=== PATIENT | female | born 2000 | race Caucasian/White ===

== ENCOUNTER 2020-04-08 12:03 | Outpatient (CLI) | payer BC, SELFPAY ==
--- NOTE | ~2020-04-08 | XR_ITS ---
EXAMINATION: XR chest 2V 04/08/2020 12:32 INDICATION: Shortness and dizziness PROCEDURE: 2 view chest COMPARISON: 10/21/2010 FINDINGS: The lungs are clear. The cardiomediastinal silhouette is within normal limits. There are no pleural effusions. There is no pneumothorax suspected. IMPRESSION: 1: NO ACUTE CARDIOPULMONARY DISEASE. Reviewed, dictated and finalized at location B. INING ASSOCIATE
[2020-04-08 13:06] LABS: Basophils Absolute Auto 0.1 K/mm3 (0.0-0.1); Basophils Percent Auto 0.8 % (0.2-1.2); Eosinophils Absolute Auto 0.1 K/mm3 (0-0.3); Eosinophils Percent Auto 0.8 % (0-4.4); Hematocrit 41.8 % (37.0-47.0); Hemoglobin 13.5 g/dL (12.0-15.0); Immature Granulocyte Absolute 0.03 K/mm3 (0.00-0.031); Immature Granulocyte Percent A 0.4 % (0-0.5); Lymphocytes Absolute Auto 1.72 K/mm3 (0.9-3.2); Lymphocytes Percent Auto 20.2 % (18.3-44.2); Mean Corpuscular HGB Conc 32.3 g/dl (32-36); Mean Corpuscular Hemoglobin 26.5 pg (26-34); Mean Corpuscular Volume 82.1 fl (80-100); Mean Platelet Volume 9.9 fl (7.4-10.4); Monocytes Percent Auto 11.8 % (2.6-8.5); Neutrophils Absolute Auto 5.6 K/mm3 (1.3-6.7); Platelet Count Result 262 k/mm3 (150-375); Red Blood Count 5.09 M/mm3 (4.2-5.4); Red Cell Distribution Width 17.5 % (11.5-14.5); White Blood Count 8.5 K/mm3 (4.5-10.0)
[2020-04-08 13:15] LABS: D Dimer 0.37 ug/mL (<0.48)
[2020-04-08 13:17] LABS: Alanine Aminotransferase 16 U/L (4-35); Albumin Level 4.5 g/dL (3.7-5.6); Alkaline Phosphatase 107 U/L (45-116); Anion Gap 20 mmol/L (8-16); Aspartate Amino Transferase 18 U/L (14-36); Bilirubin,Total 0.5 mg/dL (0.2-1.3); Blood Urea Nitrogen 11 mg/dL (8-21); CRP 1.1 mg/dL (<1.0); Carbon Dioxide 6 mmol/L (22-30); Chloride 106 mmol/L (98-107); Estimated Glomerular Filt Rate > 60; Glucose 353 mg/dL (65-105); Potassium 3.9 mmol/L (3.4-5.0); Sodium 132 mmol/L (134-143)
[2020-04-08 15:54] LABS: SARS-CoV-2 IgG Non-Reactive (NonReactive)
[2020-04-08 17:08] LABS: Erythrocyte Sedimentation Rate 5 mm/hr (0-20)
[2020-04-12 16:35] LABS: EBV Nuclear Ab Antibody <18.00 U/mL (<18.00); EBV Nuclear Ab Interpretation Negative; EBV Virus Capsid Ag IgG Ab <18.00 U/mL (<18.00); EBV Virus Capsid Ag IgM Ab <36.00 U/mL (<36.00)
== END 2020-04-08 12:04 | disposition home or self-care (01) ==
PROVIDERS: PCP Pediatrics; Visit Provider Pediatrics
DX: R06.02 Shortness of breath (principal); R11.0 Nausea; R53.83 Other fatigue
CPT/HCPCS: 36415; 71046; 80053; 82728; 85025; 85380; 85652; 86140; 86664; 86665; 86769

== ENCOUNTER 2020-04-08 15:15 | Inpatient (IN) | payer BC, SELFPAY ==
[2020-04-08] VITALS (9 sets, daily range): BP systolic 104–134; BP diastolic 65–87; PULSE 81–104; RESP 15–24; TEMP 36.2–37.1; O2SAT 100; BMI 26.5
--- NOTE | 2020-04-08 15:21 | ECG_ITS ---
Measurements Intervals [place] Rate: 93 P: 56 NH: 145 QRS: 99 QRSD: 88 T: 29 QT: 368 QTc: 459 Interpretive Statements SINUS RHYTHM RIGHT AXIS DEVIATION BORDERLINE ST-T WAVE ABNORMALITY- ANT/INF LEADS BASELINE ARTIFACT- I, II, AVR, AVF, V1 BORDERLINE ECG Electronically Signed On 04-08-2020 15:54:58 IT MANAGER by Basil Cummings D.O.
--- NOTE | 2020-04-08 15:25 | ED.GENADULT ---
HPI - General Adult General Chief complaint: Recheck/Abnormal Lab/Rx Stated complaint: high blood sugar Time Seen by Provider: 04/08/20 15:17 Source: RN notes reviewed History of Present Illness HPI narrative: Patient presents emergency department from PCP office for hyperglycemia. Patient states she has not felt well for approximately 1 week she has been being worked up by her PCP including negative outpatient Covid test. She was seen in the office today and had outpatient lab work which showed an elevated blood sugar and the patient to be in DKA the patient does not have a history of diabetes in the past she states she has had some increased thirst states she is also had generalized fatigue as well as a feeling of shortness of breath she denies any fever chills chest pain abdominal pain nausea vomiting or any other symptoms Related Data Allergies Allergy/AdvReac Type Severity Reaction Status Date / Time No Known Allergies Allergy Verified 04/08/20 15:23 Review of Systems Review of Systems: Narrative: Gen.: Denies fevers or chills ENT: Denies congestion Respiratory: For shortness of breath denies cough CV: Denies chest pain or palpitations GI: Denies abdominal pain nausea, emesis or diarrhea denies burning, urgency, frequency or hematuria Musculoskeletal: Denies back pain or muscle pain Neuro: Denies numbness, tingling, weakness or focal weakness Skin: Denies rash Endocrine: See HPI Except as documented, all other systems reviewed and negative [facility] Past Medical History Medical History (Updated 04/08/20 @ 16:48 by Torey Ansari DO) Patient denies significant medical history Social History Social History (Updated 04/08/20 @ 15:26 by Torey Ansari DO) Smoking status: Never smoker Exam Narrative: Exam Narrative: APPEARANCE: No acute distress, nontoxic, resting in bed EYES: EOMI HEENT: Normocephalic, atraumatic, OMM RESPIRATORY: No respiratory distress Clear to auscultation bilaterally with no rhonchi wheezing or rales. CARDIOVASCULAR: Regular rate and rhythm without murmurs rubs or gallops. ABDOMINAL: Soft, nontender, nondistended, no rebound or guarding MUSCULOSKELETAl: Moves all extremities. No clubbing, cyanosis or edema. NEURO: Awake and alert. Following commands, speech normal, no focal deficits SKIN:: Warm, dry. No rashes lesions or abrasions PSYCHIATRIC: Normal affect/mood, Course Course Emergency Course: I reviewed records that were done as an outpatient today including BMP as well as chest x-ray that showed no acute process and negative Covid swab Discussed with REVA Marinelli for Dr. Brooks presentation work-up agrees with admission at this time Discussed with Dr. Drew for ICU agrees with admission to the ICU at this time Discussed with patient and family results of workup and diagnosis. Discussed need for admission. Patient and family understand and agree to current treatment plan Vital Signs Vital signs: Vital Signs Temperature 97.1 F L 04/08/20 15:19 Pulse Rate 104 H 04/08/20 15:19 Respiratory Rate 24 H 04/08/20 15:19 Blood Pressure 134/87 04/08/20 15:19 Pulse Oximetry 100 04/08/20 15:19 Temperature 97.1 F L 04/08/20 15:19 Pulse Rate 95 04/08/20 16:21 Respiratory Rate 21 H 04/08/20 16:21 Blood Pressure 130/86 04/08/20 16:21 Pulse Oximetry 100 04/08/20 16:21 Medical Decision Making Vital Signs Vital Signs: Vital Signs Temperature 97.1 F L 04/08/20 15:19 Pulse Rate 104 H 04/08/20 15:19 Respiratory Rate 24 H 04/08/20 15:19 Blood Pressure 134/87 04/08/20 15:19 Pulse Oximetry 100 04/08/20 15:19 Temperature 97.1 F L 04/08/20 15:19 Pulse Rate 95 04/08/20 16:21 Respiratory Rate 21 H 04/08/20 16:21 Blood Pressure 130/86 04/08/20 16:21 Pulse Oximetry 100 04/08/20 16:21 Lab Data Labs: Lab Results 04/08/20 04/08/20 04/08/20 Range/Units 15:20 15:30 15:30 POC Capillary Glucose 402 H (65-105) mg/dl Phosph
[2020-04-08] MEDS: SODIUM CHLORIDE 0.9% IV 1,000 ML 999 ML IV CONT ×2 (15:28→15:29)
[2020-04-08 15:33] LABS: Glucose Point of Care 402 (65-105)
[2020-04-08 15:39] LABS: Base Excess ABG -21.6 mEq/l (+/-2.0); Fractional Inspired Oxygen 21 %; HCO3 ABG 4.5 mEq/l (22.0-26.0); Oxygen Content ABG 18.2 %vol (16.0-22.0); Oxygen Saturation ABG 97.8 % (95.0-100.0); Oxyhemoglobin 96.9 % THb (90.0-100.0); PO2 ABG 126.4 mmHg (80.0-100.0); PO2 FiO2 Ratio Arterial Blood 6.02 %; Total Hemoglobin 13.2 g/dL (12.0-18.0)
[2020-04-08 15:40] LABS: Device ROOM AIR; Modified Allen's Test Pass; PCO2 ABG 12.8 mmHg (35.0-45.0); Site Drawn RIGHT RADIAL; pH ABG 7.165 (7.350-7.450)
[2020-04-08 15:53] LABS: Magnesium 1.9 mg/dL (1.6-2.3); Phosphorus 1.7 mg/dL (2.5-4.5)
[2020-04-08 15:54] LABS: Alanine Aminotransferase 16 U/L (4-35); Albumin Level 4.6 g/dL (3.7-5.6); Alkaline Phosphatase 107 U/L (45-116); Aspartate Amino Transferase 19 U/L (14-36); Bilirubin,Total 0.5 mg/dL (0.2-1.3)
[2020-04-08 16:22] LABS: Glucose Point of Care 346 (65-105)
[2020-04-08] MEDS: INSULIN HUMAN REGULAR (*BKC) 100 UNITS in SODIUM CHLORIDE 0.9% IV 99 ML 5.72 UNITS IV CONT (16:25)
[2020-04-08 16:34] LABS: Add Urine Microscopic? YES; Appearance Urine Clear (Clear); Bacteria Urine Trace /hpf; Bilirubin Urine Negative (Negative); Blood Urine 3+ (Negative); Color Urine Straw (Yellow); Glucose Urine UA 3+ mg/dL (Negative); Ketones Urine 2+ mg/dL (Negative); Leukocyte Esterase Ur Negative LEU/UL (Negative); Mucus Urine Rare /lpf; Nitrate Urine Negative (Negative); Protein Urine 2+ mg/dL (Negative); Squamous Epithelial Cell Urine Occasional /hpf (Few); Urobilinogen Urine Negative mg/dL (<2.0)
[2020-04-08 16:49] LABS: Beta-Hydroxybutyrate/Acetoacetate 7.95 mmol/L (0.02-0.27)
[2020-04-08 17:39] LABS: Glucose Point of Care 266 (65-105)
[2020-04-08] MEDS: SODIUM CHLORIDE 0.9% IV 1,000 ML 150 ML IV CONT (17:50)
[2020-04-08 17:57] LABS: Hemoglobin A1C 12.4 % (<5.7)
[2020-04-08] MEDS: ONDANSETRON INJ 4 MG/2 ML VIAL IV PUSH (18:07)
--- NOTE | 2020-04-08 18:30 | PM.IMHP ---
H&P: HPI History of Present Illness Date/Time: 04/08/20 18:30 Chief Complaint: Elevated glucose level. Narrative: This is a 19-year-old female who seems to suffer from bulimia who presented to the emergency department earlier today at the direction of her primary care provider for further evaluation of an elevated glucose level found on labs today. She has not been feeling well for about a week with fatigue, lightheadedness, nausea, and shortness of breath and has been in contact with her primary care provider regarding these symptoms. In fact she was tested for COVID on 3 separate occasions, testing negative each time. Within the past several days she was prescribed dexamethasone due to ongoing shortness of breath, presumably under the assumption that she had COVID or and a respiratory infection. Unfortunately she continues to feel worse which prompted further workup to include labs and chest x-ray. On labs today glucose was elevated at 353, also with findings to support diabetic ketoacidosis with a serum carbon dioxide level of 6. She was referred to the emergency department and was found to be in diabetic ketoacidosis, and is being admitted in this setting. At the time my evaluation she has been hydrated and reports feeling somewhat better although she is still mildly short of breath. She has no specific complaints at the time my evaluation and specifically denies fever, chills, sweats, sinus congestion, rhinorrhea, otalgia, odynophagia, cough, chest pain, vomiting, diarrhea, and dysuria. Review of Systems Review of Systems: Narrative: Twelve systems were reviewed with pertinent positives and negatives as per HPI. No syncope. She denies chest pain, pleuritic pain, and palpitations. No cold or flu symptoms. No lower extremity edema. She does endorse being quite thirsty and feels dehydrated. She is on control with her last menstrual cycle being about a month ago. No history of thyroid disease. She has binged and purged for about 4 years, consistent with bulimia, the last time being about 3 weeks ago. She has never told anybody about this and has not sought treatment for that. She denies harmful thoughts. Except as documented, all other systems were reviewed and are negative. [facility] Past Medical History Medical History (Updated 04/08/20 @ 23:23 by Isis Blackwell PA-C) Bulimia Surgical History Surgical History (Updated 04/08/20 @ 23:19 by Isis Blackwell PA-C) History of bilateral breast reduction surgery Status post myringotomy with insertion of tube Family History Family History (Updated 04/08/20 @ 23:20 by Isis Blackwell PA-C) Grandparent Diabetes mellitus Father Asthma Sibling Anxiety Social History Social History (Updated 04/08/20 @ 23:20 by Isis Blackwell PA-C) Social History: The patient lives in [place], [place]. She is studying [employer] at [employer] and works at a local [employer]. Lifelong nonsmoker. No alcohol or illicit substance abuse. Her parents Irish and Torey are her surrogate decision makers and she wishes to be a full code. Spiritual care concerns: No Meds Home Medications and Allergies Home Medications Medication Instructions Recorded Confirmed Type norgestimate-ethinyl estradiol 1 tablet PO DAILY 04/08/20 04/08/20 History [Tri Femynor] Allergies Allergy/AdvReac Type Severity Reaction Status Date / Time No Known Allergies Allergy Verified 04/08/20 15:23 Vital Signs Vital Signs - 24 hr 04/08/20 15:19 04/08/20 16:21 04/08/20 17:40 Temperature 97.1 F L Pulse Rate 104 H 95 93 Respiratory Rate 24 H 21 H 23 H Blood Pressure 134/87 130/86 117/73 Pulse Oximetry 100 100 100 04/08/20 18:10 Temperature Pulse Rate 95 Respiratory Rate 15 Blood Pressure 120/82 Pulse Oximetry 100 Exam Narrative: Exam Narrative: General: Mildly ill-appearing female in the semi-Barron position in bed in no acute distress. Weight: 70.1 kilograms. BMI
[2020-04-08 18:37] LABS: Glucose Point of Care 228 (65-105)
--- NOTE | 2020-04-08 18:45 | ADMGEN ---
This patient, Pooja Long, was admitted to Intensive Care Unit-10. Patient/family oriented to hospital policies and general routines including ID bracelet, bed and alarms, visiting hours, pain management, procedures, bathroom and other care routines, personal items, smoking policy, room service/diet, and visiting hours. Information on how to activate the Rapid Response Team has been discussed. Patient/Family are encouraged to report perceived risks to care and to ask questions if they do not understand what they are told or what they should do.
[2020-04-08 19:46] LABS: Glucose Point of Care 161 (65-105)
[2020-04-08] MEDS: KCL 20 MEQ/D5/0.45% SOD CHL 1,000 ML 150 ML IV CONT (19:52)
--- NOTE | 2020-04-08 20:10 | PC.NURSE ---
Spoke with patient about history of bulemia. Pt states she has not thrown up for the past 3 weeks and a friends parent told her parents about it today. Explained actively purging can greatly complicate her diabetes, and other coping mechanisms are needed. patient states understanding but needs reinforcement.
[2020-04-08 20:28] LABS: Anion Gap 13 mmol/L (8-16); Blood Urea Nitrogen 8 mg/dL (8-21); Calcium 7.8 mg/dL (8.9-10.7); Carbon Dioxide 8 mmol/L (22-30); Chloride 116 mmol/L (98-107); Estimated CRCL calculation 130 ml/min; Estimated Glomerular Filt Rate > 60; Glucose 168 mg/dL (65-105); Potassium 2.8 mmol/L (3.4-5.0); Sodium 137 mmol/L (134-143)
[2020-04-08 20:36] LABS: Glucose Point of Care 179 (65-105)
[2020-04-08] MEDS: POTASSIUM CHLORIDE 20 MEQ TABLET 40 MEQ PO (21:02)
[2020-04-08 21:25] LABS: Glucose Point of Care 183 (65-105)
[2020-04-08 22:41] LABS: Glucose Point of Care 183 (65-105)
[2020-04-09] VITALS (14 sets, daily range): BP systolic 96–110; BP diastolic 60–72; PULSE 75–103; RESP 14–21; TEMP 36.3–37.1; O2SAT 99–100; BMI 26.5
[2020-04-09 00:10] LABS: Anion Gap 13 mmol/L (8-16); Blood Urea Nitrogen 5 mg/dL (8-21); Carbon Dioxide 7 mmol/L (22-30); Chloride 113 mmol/L (98-107); Estimated CRCL calculation 130 ml/min; Estimated Glomerular Filt Rate > 60; Glucose 179 mg/dL (65-105); Potassium 3.1 mmol/L (3.4-5.0); Sodium 133 mmol/L (134-143)
[2020-04-09 00:16] LABS: Phosphorus 1.5 mg/dL (2.5-4.5)
[2020-04-09] MEDS: KCL 20 MEQ/D5/0.45% SOD CHL 1,000 ML 150 ML IV CONT (01:20)
[2020-04-09] MEDS: POTASSIUM CHLORIDE 20 MEQ TABLET 40 MEQ PO (01:40)
[2020-04-09 01:47] LABS: Glucose Point of Care 221 (65-105)
[2020-04-09] MEDS: INSULIN HUMAN REGULAR (*BKC) 100 UNITS in SODIUM CHLORIDE 0.9% IV 99 ML IV CONT (02:39)
[2020-04-09 02:41] LABS: Glucose Point of Care 203 (65-105)
[2020-04-09 03:34] LABS: Anion Gap 8 mmol/L (8-16); Blood Urea Nitrogen 5 mg/dL (8-21); Calcium 7.9 mg/dL (8.9-10.7); Carbon Dioxide 13 mmol/L (22-30); Chloride 113 mmol/L (98-107); Estimated CRCL calculation 111 ml/min; Estimated Glomerular Filt Rate > 60; Glucose 182 mg/dL (65-105); Potassium 2.8 mmol/L (3.4-5.0); Sodium 134 mmol/L (134-143)
[2020-04-09 04:15] LABS: Glucose Point of Care 148 (65-105)
[2020-04-09 04:26] LABS: Glucose Point of Care 146 (65-105)
[2020-04-09 04:29] LABS: Magnesium 1.7 mg/dL (1.6-2.3)
[2020-04-09 05:14] LABS: Glucose Point of Care 154 (65-105)
[2020-04-09 06:36] LABS: Glucose Point of Care 157 (65-105)
[2020-04-09] MEDS: POTASSIUM PHOS,M-BASIC-D-BASIC 20 MMOL in SODIUM CHLORIDE 0.9% IV 250 ML 64 MMOL IVPB (06:39)
[2020-04-09 06:57] LABS: Anion Gap 7 mmol/L (8-16); Blood Urea Nitrogen 6 mg/dL (8-21); Calcium 8.2 mg/dL (8.9-10.7); Carbon Dioxide 14 mmol/L (22-30); Chloride 114 mmol/L (98-107); Estimated CRCL calculation 111 ml/min; Estimated Glomerular Filt Rate > 60; Glucose 140 mg/dL (65-105); Potassium 3.3 mmol/L (3.4-5.0); Sodium 135 mmol/L (134-143)
[2020-04-09 07:35] LABS: Glucose Point of Care 145 (65-105)
--- NOTE | 2020-04-09 08:00 | WPDINTPN ---
Progress Note: A&P Assessment and Plan (1) Diabetic keto-acidosis: Code(s): E11.10 - Type 2 diabetes mellitus with ketoacidosis without coma Status: Acute Assessment and Plan: Patient's anion gap has closed. Although she is still mildly acidotic because of hyperchloremia Patient is now asymptomatic and wants to eat food Will start Lantus, with meal insulin and sliding scale insulin Transition off of insulin infusion Change IV fluids to half-normal saline with potassium Recheck BMP and electrolytes and poor hours (2) Diabetes mellitus, new onset: Code(s): E11.9 - Type 2 diabetes mellitus without complications Status: Acute Assessment and Plan: Consult natural resources extension educator and dietitian HbA1c 12.4 (3) Bulimia: Code(s): F50.2 - Bulimia nervosa Status: Inactive Assessment and Plan: No intervention at this time (4) Electrolyte abnormality: Code(s): E87.8 - Other disorders of electrolyte and fluid balance, not elsewhere classified Status: Acute Assessment and Plan: Patient is getting potassium and fossa placement this time. Repeat levels are ordered for 11:00 a.m. Additional Plan DVT prophylaxis -SCDs while in bed, she is currently on Lovenox which I will DC from tomorrow as I anticipate patient will be active Code Status - Full Code Transfer out of ICU later today Subjective Date/time seen: 04/09/20 0800 19-year-old female with past medical history of bulimia presented to the emergency department yesterday at the direction of her primary care provider for further evaluation of an elevated glucose level found on labs today. She stated that she has been feeling sick for close to 10 days. She had no single specific complaint but multiple symptoms including nausea, occasional vomiting, tiredness, fatigue, lightheadedness, she was drinking lot of water and high urine output, she also was breathing fast and heavy. She was tested for COVID on direction of her primary care physician which was negative. Symptoms did not improve she went back and was tested again and was given 1 dose of dexamethasone close to 1 week after beginning of symptoms. Her test retained negative but her labs work showed elevated blood sugars. She received a call from her physician asking her to come to ER for further evaluation. In ED patient was found to be in DKA. She was given IV fluid bolus and started on maintenance IV fluids and insulin infusion. Electrolytes were replaced This morning patient feels better and states her symptoms have completely resolved. Denies any specific complaint at this time Apart from symptoms mentioned above she did mention that she does suffer from bulimia has not had any episode for last 3 weeks. She has not sought any treatment for this in the past but will seek in the future now since her parents are aware of it. Patient denied fever, sick contact with anyone with COVID-19, chest pain, cough, abdominal pain, diarrhea, headache or constipation. She denied any hematuria hematemesis melena or dysuria All other systems were reviewed and were negative Review of Systems Review of Systems: All systems reviewed & are unremarkable except as noted in HPI and below (HPI) Exam Narrative: Exam Narrative: General: Pt is alert awake and in NAD Lungs/Chest: Trachea central Clear BS B/L, No crackles or wheezing. Cardiac: RRR. Normal S1 S2. No murmurs Circulation: Pedal pulses are intact and symmetrical. Abdomen: Normal bowel sounds.. Soft. NT. ND. Extremities: No clubbing, cyanosis or edema. Warm : Rascon in place Neurologic: Follows commands. Moves all 4 extremities PERRL Skin: No Rash Objective Data Vital Signs Vital Signs: Vital Signs - 24 hr 04/08/20 15:19 04/08/20 16:21 04/08/20 17:40 Temperature 36.2 C L Pulse Rate 104 H 95 93 Respiratory Rate 24 H 21 H 23 H Blood Pressure 134/87 130/86 117/73 Pulse Oximetry 100 100 100 04/08/20 18:10 02
[2020-04-09 08:38] LABS: Glucose Point of Care 144 (65-105)
[2020-04-09] MEDS: INSULIN GLARGINE (*BKC) 100 UNITS/ML 10 UNITS SUB-Q ×2 (09:07→14:19)
[2020-04-09] MEDS: ENOXAPARIN 40 MG/0.4 ML SYRINGE SUB-Q (09:07)
[2020-04-09] MEDS: FAMOTIDINE 20 MG/2 ML VIAL IV PUSH ×2 (09:07→20:50)
[2020-04-09] MEDS: KCL 20 MEQ/0.45% NS 1,000 ML 75 ML IV CONT ×2 (09:25→23:22)
--- NOTE | 2020-04-09 09:38 | PC.NURSE ---
CALLED OPERATIONS EXAMINER MARISSA TO NOTIFY HER OF CONSULT.
[2020-04-09 11:03] LABS: Anion Gap 9 mmol/L (8-16); Blood Urea Nitrogen 6 mg/dL (8-21); Carbon Dioxide 11 mmol/L (22-30); Chloride 110 mmol/L (98-107); Estimated CRCL calculation 158 ml/min; Estimated Glomerular Filt Rate > 60; Glucose 378 mg/dL (65-105); Potassium 3.8 mmol/L (3.4-5.0); Sodium 130 mmol/L (134-143)
[2020-04-09 11:07] LABS: Glucose Point of Care 394 (65-105)
[2020-04-09] MEDS: INSULIN ASPART (*BKC) 100 UNITS/ML SUB-Q ×3 (11:09→18:25)
[2020-04-09 13:24] LABS: Glucose Point of Care 345 (65-105)
--- NOTE | 2020-04-09 13:25 | PM.EVENT ---
Event Note Event Note Event Note: BMP reviewed. Anion gap still closed hyperchloremia as improved. Potassium has normal. Phos is still low. Additional IV K-Phos ordered Blood glucose are high after starting diet. Will give additional 10 units of regular insulin now, increase Lantus to 20 and will give 10 additional now. Change with meal insulin to 5 units and increase sliding scale to high dose. Continue to monitor and adjust accordingly. Patient continues to be asymptomatic at this time
[2020-04-09] MEDS: INSULIN HUMAN REGULAR (*BKC) 100 UNITS/ML 10 UNITS IV PUSH (14:18)
[2020-04-09] MEDS: POTASSIUM PHOS,M-BASIC-D-BASIC 20 MMOL in SODIUM CHLORIDE 0.9% IV 250 ML 62.5 MMOL IVPB (14:25)
--- NOTE | 2020-04-09 14:27 | PCNSR ---
On 04/09/20, the student, Radha Sunshine, provided care and completed [facility] documentation on this patient. I have reviewed the student's documentation and agree with the findings.
[2020-04-09 18:12] LABS: Anion Gap 10 mmol/L (8-16); Blood Urea Nitrogen 4 mg/dL (8-21); Calcium 8.5 mg/dL (8.9-10.7); Carbon Dioxide 11 mmol/L (22-30); Chloride 111 mmol/L (98-107); Estimated CRCL calculation 130 ml/min; Estimated Glomerular Filt Rate > 60; Glucose 215 mg/dL (65-105); Magnesium 1.8 mg/dL (1.6-2.3); Potassium 3.6 mmol/L (3.4-5.0); Sodium 132 mmol/L (134-143)
[2020-04-09 18:25] LABS: Glucose Point of Care 193 (65-105)
[2020-04-09 20:12] LABS: Glucose Point of Care 414 (65-105)
[2020-04-09] MEDS: INSULIN ASPART (*BKC) 100 UNITS/ML 10 UNITS SUB-Q (20:54)
[2020-04-10] VITALS (9 sets, daily range): BP systolic 100–114; BP diastolic 49–75; PULSE 67–93; RESP 12–20; TEMP 36.1–36.7; O2SAT 98–100
[2020-04-10 00:55] LABS: Glucose Point of Care 223 (65-105)
[2020-04-10 04:55] LABS: Hematocrit 33.2 % (37.0-47.0); Hemoglobin 11.3 g/dL (12.0-15.0); Mean Corpuscular Hemoglobin 27.2 pg (26-34); Mean Platelet Volume 9.9 fl (7.4-10.4); Platelet Count Result 168 k/mm3 (150-375); Red Blood Count 4.15 M/mm3 (4.2-5.4); Red Cell Distribution Width 17.7 % (11.5-14.5); White Blood Count 5.3 K/mm3 (4.5-10.0)
[2020-04-10 05:13] LABS: Alanine Aminotransferase 12 U/L (4-35); Albumin Level 2.8 g/dL (3.7-5.6); Alkaline Phosphatase 61 U/L (45-116); Anion Gap 6 mmol/L (8-16); Aspartate Amino Transferase 17 U/L (14-36); Bilirubin,Total 0.2 mg/dL (0.2-1.3); Blood Urea Nitrogen 4 mg/dL (8-21); Calcium 8.2 mg/dL (8.9-10.7); Carbon Dioxide 19 mmol/L (22-30); Chloride 110 mmol/L (98-107); Estimated CRCL calculation 130 ml/min; Estimated Glomerular Filt Rate > 60; Glucose 195 mg/dL (65-105); Magnesium 1.8 mg/dL (1.6-2.3); Phosphorus 2.4 mg/dL (2.5-4.5); Potassium 2.9 mmol/L (3.4-5.0); Sodium 135 mmol/L (134-143)
--- NOTE | 2020-04-10 07:43 | PHAR ---
The patient's home meds of Norgestimate-Ethinyl Estradiol [Tri Femynor] 0.18/0.215/0.25 mg has been verified.
[2020-04-10 08:15] LABS: Glucose Point of Care 236 (65-105)
[2020-04-10] MEDS: POTASSIUM CHLORIDE 20 MEQ PACKET (FOR LIQUID) 40 MEQ PO (08:54)
[2020-04-10] MEDS: INSULIN GLARGINE (*BKC) 100 UNITS/ML 30 UNITS SUB-Q (08:56)
[2020-04-10] MEDS: FAMOTIDINE 20 MG/2 ML VIAL IV PUSH ×2 (08:57→20:29)
--- NOTE | 2020-04-10 11:00 | PM.IMPN ---
Progress Note: A&P Assessment and Plan (1) Diabetic keto-acidosis: Code(s): E11.10 - Type 2 diabetes mellitus with ketoacidosis without coma Status: Acute Assessment and Plan: associated with electrolyte anomaly hypokalemia patient was treated with DKA protocol acidosis resolved IV insulin was discontinued (2) Diabetes mellitus, new onset: Code(s): E11.9 - Type 2 diabetes mellitus without complications Status: Acute Assessment and Plan: discussed with refrigerating machine operator agree with insulin adjustment okay to transfer patient to medical floor (3) Bulimia: Code(s): F50.2 - Bulimia nervosa Status: Inactive Assessment and Plan: follow-up with PCP Subjective Date/time seen: 04/10/20 11:00 Interval history: Patient seen and examined patient presented to the hospital with generalized weakness was referred by her primary care physician was found to have DKA patient does not have history of diabetes but she have family history of diabetes patient was treated with DKA protocol her blood sugar has improved acidosis has resolved patient was started on scheduled insulin Patient denies fever headache chest pain shortness of breath I am seeing the patient for DKA Exam Narrative: Exam Narrative: Alert Chest no wheeze crackles Abdomen nontender nondistended CVS S1 + S2 Lower extremity edema Objective Data Vital Signs Vital Signs: Vital Signs - 24 hr 04/09/20 12:00 04/09/20 14:00 04/09/20 16:00 Temperature 97.9 F 98.7 F Pulse Rate 91 101 H 88 Respiratory Rate 15 15 15 Blood Pressure 110/60 100/70 Pulse Oximetry 100 100 04/09/20 18:00 04/09/20 20:00 04/09/20 21:59 Temperature 97.4 F L Pulse Rate 91 92 76 Respiratory Rate 21 H 15 Blood Pressure 99/68 L Pulse Oximetry 100 100 04/09/20 22:01 04/10/20 00:00 04/10/20 02:00 Temperature 97.7 F Pulse Rate 80 82 Respiratory Rate 16 13 Blood Pressure 110/60 114/70 108/57 L Pulse Oximetry 100 100 04/10/20 04:00 04/10/20 06:00 04/10/20 08:00 Temperature 96.9 F L 97.6 F Pulse Rate 75 71 67 Respiratory Rate 12 14 13 Blood Pressure 100/60 109/59 L 105/65 Pulse Oximetry 100 100 100 04/10/20 10:00 Temperature Pulse Rate 76 Respiratory Rate 12 Blood Pressure 113/75 Pulse Oximetry 100 Intake/Output Intake/Output: Intake & Output 04/07/20 04/08/20 04/09/20 04/10/20 23:59 23:59 23:59 23:59 Intake Total 2213 3570 664 Output Total 2400 1300 Balance 2213 1170 -636 Meds/Results Medications: Active Medications Generic Name Dose Route Start Last Admin Trade Name Freq PRN Reason Stop Dose Admin Dextrose 12.5 gm 04/09/20 08:20 Dextrose 50% 25 Gm/50 Ml Syringe IV PUSH PRN PRN Hypoglycemia Protocol Famotidine 20 mg 04/09/20 09:00 04/10/20 08:57 Famotidine 20 Mg/2 Ml Vial IV PUSH 20 mg Q12HR JOSE Administration Glucagon 1 mg 04/09/20 08:20 Glucagon For Inj 1 Mg Vial IM PRN PRN Hypoglycemia Protocol Glucose 15 gm 04/09/20 08:20 Glucose Oral Gel 15 Gm Of Glucse In 37.5 Gm Tube PO PRN PRN Hypoglycemia Protocol Dextrose 1,000 mls @ 100 mls/hr 04/09/20 08:20 Dextrose 5% 1,000 Ml IVPB PRN PRN Hypoglycemia Protocol Potassium Chloride/Sodium Chloride 1,000 mls @ 75 mls/hr 04/09/20 08:25 04/10/20 09:04 Kcl 20 Meq/0.45% Ns IV CONT 0 mls/hr .[id number] JOSE Infusion Potassium Phosphate 30 mmol/ 260 mls @ 62.5 mls/hr 04/10/20 07:28 04/10/20 08:54 Sodium Chloride IVPB 04/10/20 11:34 62.5 mls/hr ONCE ONE Administration Insulin Aspart 4 - 8 units 04/09/20 16:30 04/09/20 20:41 Insulin Aspart (*Bkc) 100 Units/Ml SUB-Q Not Given ACHS [facility] Protocol Insulin Aspart 8 units 04/10/20 07:30 Insulin Aspart (*Bkc) 100 Units/Ml SUB-Q TIDWM [facility] Insulin Glargine 30 units 04/10/20 09:00 04/10/20 08:56 Insulin Glargine (*Bkc) 100 Units/Ml SUB-Q 30 units
[2020-04-10 11:41] LABS: Glucose Point of Care 202 (65-105)
[2020-04-10] MEDS: INSULIN ASPART (*BKC) 100 UNITS/ML SUB-Q ×3 (11:41→20:32)
[2020-04-10] MEDS: INSULIN ASPART (*BKC) 100 UNITS/ML 8 UNITS SUB-Q ×2 (11:41→15:23)
[2020-04-10 12:14] LABS: Magnesium 1.8 mg/dL (1.6-2.3)
--- NOTE | 2020-04-10 12:53 | PCCDE ---
Diabetes education f/up: received voice mail from RN this am that pt's mom had more questions. Called Pooja's room today and spoke to Pooja and her dad (mom was not there) [phone]. Reviewed increased doses of Lantus and Novolog; pt had pertinent questions about preference of using pens at home. Discussed importance of checking name/type of insulin before taking; using book instructions if needed (pt sts she is comfortable). Reviewed causes, sx and tx of hypoglycemia; pt v/u of Rule of 15 and eating 4 glucose tablets. Pt saw RD yesterday; denies questions about carb counting. Encouraged pt to drink water and answered questions about other sugar free beverages allowed. Pt usually drinks water, diet soda, or hot tea with Stevia. Yesterday mom mentioned they might go to the gym together. Discussed benefits/risks of exercise lowering BG. Advised to take BG meter and glucose tabs to gym. Start slow. Test before exercise to determine need for pre work out snack. pt denied further questions; gave permission to talk to dad. Dad asked about support group. Will add to support group notification here and will email info about [facility] support group in [facility] for women with T1DM. Encouraged pt to call with questions prn. Recommended discharge with insulin pens and BD Angela (4mm) pen needles. One Touch Verio test strips and Delica Plus lancets.
--- NOTE | 2020-04-10 13:26 | WPDINTPN ---
Progress Note: A&P Assessment and Plan (1) Diabetic keto-acidosis: Code(s): E11.10 - Type 2 diabetes mellitus with ketoacidosis without coma Status: Acute Assessment and Plan: Patient's anion gap has closed. She has been transitioned to subcutaneous insulin Patient is now asymptomatic and eating consistent carbohydrate diet Patient was started on Lantus, with meal insulin and sliding scale insulin Her sugars have been uncontrolled despite subcutaneous insulin I have increased her Lantus to 30 units subcu q.day, increased with meal insulin to 8 units and will continue sliding scale Will discontinue IV fluids now (2) Diabetes mellitus, new onset: Code(s): E11.9 - Type 2 diabetes mellitus without complications Status: Acute Assessment and Plan: Consult educator senior clinical and dietitian HbA1c 12.4 (3) Electrolyte abnormality: Code(s): E87.8 - Other disorders of electrolyte and fluid balance, not elsewhere classified Status: Acute Assessment and Plan: Patient had low potassium and phosphorus this morning and is being replaced Will recheck later in the day Additional Plan DVT prophylaxis -SCDs while in bed, she is currently on Lovenox which I will DC from tomorrow as I anticipate patient will be active Code Status - Full Code Transfer out of ICU later today Subjective Date/time seen: 04/10/20 13:26 Patient has no new complaints today as is feeling better. She was transition to subcutaneous insulin yesterday but her sugars remained high her meals requiring at least 2 different doses of IV insulin. Otherwise she is doing better and eating her diet. Slept well with no new complaints All other systems were reviewed and were negative Review of Systems Review of Systems: All systems reviewed & are unremarkable except as noted in HPI and below (HPI) Exam Narrative: Exam Narrative: General: Pt is alert awake and in NAD Lungs/Chest: Trachea central Clear BS B/L, No crackles or wheezing. Cardiac: RRR. Normal S1 S2. No murmurs Circulation: Pedal pulses are intact and symmetrical. Abdomen: Normal bowel sounds.. Soft. NT. ND. Extremities: No clubbing, cyanosis or edema. Warm : Rascon in place Neurologic: Follows commands. Moves all 4 extremities PERRL Skin: No Rash Objective Data Vital Signs Vital Signs: Vital Signs - 24 hr 04/09/20 14:00 04/09/20 16:00 04/09/20 18:00 Temperature 36.6 C 37.1 C Pulse Rate 101 H 88 91 Respiratory Rate 15 15 Blood Pressure 110/60 100/70 Pulse Oximetry 100 100 04/09/20 20:00 04/09/20 21:59 04/09/20 22:01 Temperature 36.3 C L Pulse Rate 92 76 Respiratory Rate 21 H 15 Blood Pressure 99/68 L 110/60 Pulse Oximetry 100 100 04/10/20 00:00 04/10/20 02:00 04/10/20 04:00 Temperature 36.5 C 36.1 C L Pulse Rate 80 82 75 Respiratory Rate 16 13 12 Blood Pressure 114/70 108/57 L 100/60 Pulse Oximetry 100 100 100 04/10/20 06:00 04/10/20 08:00 04/10/20 10:00 Temperature 36.4 C Pulse Rate 71 67 76 Respiratory Rate 14 13 12 Blood Pressure 109/59 L 105/65 113/75 Pulse Oximetry 100 100 100 04/10/20 11:51 Temperature 36.6 C Pulse Rate 88 Respiratory Rate 18 Blood Pressure 104/64 Pulse Oximetry 100 Intake/Output Intake/Output: Intake & Output 04/07/20 04/08/20 04/09/20 04/10/20 23:59 23:59 23:59 23:59 Intake Total 2213 3570 904 Output Total 2400 1300 Balance 2213 1170 -396 Meds/Results Medications: Active Medications Generic Name Dose Route Start Last Admin Trade Name Freq PRN Reason Stop Dose Admin Dextrose 12.5 gm 04/09/20 08:20 Dextrose 50% 25 Gm/50 Ml Syringe IV PUSH PRN PRN Hypoglycemia Protocol Famotidine 20 mg 04/09/20 09:00 04/10/20 08:57 Famotidine 20 Mg/2 Ml Vial IV PUSH 20 mg Q12HR JOSE Administration Glucagon 1 mg 04/09/20 08:20 Glucagon For Inj 1 Mg Vial IM PRN PRN Hypoglycemia Protocol Glucose 15 gm 04/09/20 08:
--- NOTE | 2020-04-10 14:01 | PC.NURSE ---
This patient, Pooja Long, was transferred to [facility] on 04/10/20 at 1401. Personal belongings sent with patient. Report given to DIANE Capone. Appropriate documentation sent with patient.
--- NOTE | 2020-04-10 14:05 | PC.NURSE ---
This patient, Pooja Long, was received from [ ICU] on 04/10/20 at 1405. Patient/family oriented to unit policies and routines
[2020-04-10 14:59] LABS: Glucose Point of Care 256 (65-105)
[2020-04-10 15:31] LABS: Anion Gap 8 mmol/L (8-16); Blood Urea Nitrogen 8 mg/dL (8-21); Calcium 8.5 mg/dL (8.9-10.7); Carbon Dioxide 19 mmol/L (22-30); Chloride 107 mmol/L (98-107); Estimated CRCL calculation 146 ml/min; Estimated Glomerular Filt Rate > 60; Glucose 259 mg/dL (65-105); Phosphorus 2.8 mg/dL (2.5-4.5); Potassium 3.3 mmol/L (3.4-5.0); Sodium 134 mmol/L (134-143)
[2020-04-10 17:43] LABS: Glucose Point of Care 348 (65-105)
[2020-04-10] MEDS: INSULIN ASPART (*BKC) 100 UNITS/ML 18 UNITS SUB-Q (18:14)
[2020-04-10 21:45] LABS: Glucose Point of Care 365 (65-105)
[2020-04-11] VITALS: BP 113/58; PULSE 84; RESP 16; TEMP 36.6; O2SAT 98
[2020-04-11 00:37] LABS: Glucose Point of Care 186 (65-105)
[2020-04-11 05:01] VITALS: BP 107/58; PULSE 75; RESP 18; TEMP 36.1; O2SAT 100
[2020-04-11 05:54] LABS: Hematocrit 32.8 % (37.0-47.0); Hemoglobin 11.1 g/dL (12.0-15.0); Mean Corpuscular HGB Conc 33.8 g/dl (32-36); Mean Corpuscular Hemoglobin 27.3 pg (26-34); Mean Corpuscular Volume 80.6 fl (80-100); Mean Platelet Volume 10.3 fl (7.4-10.4); Platelet Count Result 160 k/mm3 (150-375); Red Blood Count 4.07 M/mm3 (4.2-5.4); Red Cell Distribution Width 17.8 % (11.5-14.5); White Blood Count 5.4 K/mm3 (4.5-10.0)
[2020-04-11 06:15] LABS: Alanine Aminotransferase 14 U/L (4-35); Albumin Level 2.8 g/dL (3.7-5.6); Alkaline Phosphatase 64 U/L (45-116); Anion Gap 5 mmol/L (8-16); Aspartate Amino Transferase 19 U/L (14-36); Bilirubin,Total 0.2 mg/dL (0.2-1.3); Blood Urea Nitrogen 7 mg/dL (8-21); Calcium 8.4 mg/dL (8.9-10.7); Carbon Dioxide 23 mmol/L (22-30); Chloride 108 mmol/L (98-107); Estimated CRCL calculation 186 ml/min; Estimated Glomerular Filt Rate > 60; Glucose 194 mg/dL (65-105); Magnesium 1.8 mg/dL (1.6-2.3); Phosphorus 3.5 mg/dL (2.5-4.5); Potassium 2.9 mmol/L (3.4-5.0); Sodium 136 mmol/L (134-143)
[2020-04-11 08:05] LABS: Glucose Point of Care 206 (65-105)
[2020-04-11 09:04] LABS: Glucose Point of Care 220 (65-105)
[2020-04-11] MEDS: FAMOTIDINE 20 MG/2 ML VIAL IV PUSH ×2 (09:25→20:22)
[2020-04-11] MEDS: POTASSIUM CHLORIDE 20 MEQ PACKET (FOR LIQUID) 40 MEQ PO ×2 (09:25→13:15)
[2020-04-11] MEDS: INSULIN GLARGINE (*BKC) 100 UNITS/ML 30 UNITS SUB-Q (09:33)
[2020-04-11] MEDS: INSULIN ASPART (*BKC) 100 UNITS/ML SUB-Q ×3 (09:33→20:25)
[2020-04-11 09:38] VITALS: BP 116/64; PULSE 101
[2020-04-11] MEDS: SPIRONOLACTONE 50 MG TABLET PO ×2 (10:33→17:32)
[2020-04-11 11:09] LABS: Creatinine Urine 110.8 mg/dL
--- NOTE | 2020-04-11 11:12 | PM.IMPN ---
Progress Note: A&P Assessment and Plan (1) Diabetic keto-acidosis: Code(s): E11.10 - Type 2 diabetes mellitus with ketoacidosis without coma Status: Acute Assessment and Plan: associated with electrolyte anomaly hypokalemia patient was treated with DKA protocol acidosis resolved IV insulin was discontinued (2) Diabetes mellitus, new onset: Code(s): E11.9 - Type 2 diabetes mellitus without complications Status: Acute Assessment and Plan: insulin dose was adjusted Lantus 30 daily aspart 11 t.i.d. (3) Bulimia: Code(s): F50.2 - Bulimia nervosa Status: Inactive Assessment and Plan: follow-up with PCP (4) Hypokalemia: Code(s): E87.6 - Hypokalemia Status: Acute Assessment and Plan: replace potassium started on Aldactone most likely related to total body potassium depletion urine study was sent if no improvement will get nephrology evaluation Additional Plan The patient is being admitted to the hospitalist service and has been placed in the intensive care unit where she has been started on insulin drip, which will be titrated per DKA protocol. Her anion gap on arrival was 20, and chemistries will be monitored closely floor anion gap closure and electrolyte abnormalities. The patient is a new onset diabetic, and will need to see the dietitian and painting trades worker. She will be transitioned to long-acting insulin upon resolution of DKA. Initiate sliding scale insulin, Accu-Cheks, and hypoglycemic protocol. The patient and I also had discussions regarding her eating disorder, and I think speaking with a dietitian will be beneficial for her however she needs to seek further treatment for that as well. Subjective Date/time seen: 04/11/20 11:12 Interval history: Patient seen and examined patient presented to the hospital with generalized weakness was referred by her primary care physician was found to have DKA patient does not have history of diabetes but she have family history of diabetes patient was treated with DKA protocol her blood sugar has improved acidosis has resolved patient was started on scheduled insulin hyperglycemia has significantly improved patient still has hypokalemia Patient denies fever headache chest pain shortness of breath I am seeing the patient for DKA Exam Narrative: Exam Narrative: Alert Chest no wheeze crackles Abdomen nontender nondistended CVS S1 + S2 Lower extremity edema Objective Data Vital Signs Vital Signs: Vital Signs - 24 hr 04/10/20 11:51 04/10/20 16:00 04/10/20 21:55 Temperature 97.8 F 97.4 F L 98.1 F Pulse Rate 88 87 93 Respiratory Rate 18 20 20 Blood Pressure 104/64 105/60 107/49 L Pulse Oximetry 100 98 98 04/11/20 00:00 04/11/20 05:01 Temperature 97.8 F 97 F L Pulse Rate 84 75 Respiratory Rate 16 18 Blood Pressure 113/58 L 107/58 L Pulse Oximetry 98 100 Intake/Output Intake/Output: Intake & Output 04/08/20 04/09/20 04/10/20 04/11/20 23:59 23:59 23:59 23:59 Intake Total 2213 3570 2064 290 Output Total 2400 2150 1000 Balance 2213 9261 -86 -505 Meds/Results Medications: Active Medications Generic Name Dose Route Start Last Admin Trade Name Freq PRN Reason Stop Dose Admin Dextrose 12.5 gm 04/09/20 08:20 Dextrose 50% 25 Gm/50 Ml Syringe IV PUSH PRN PRN Hypoglycemia Protocol Famotidine 20 mg 04/09/20 09:00 04/11/20 09:25 Famotidine 20 Mg/2 Ml Vial IV PUSH 20 mg Q12HR JOSE Administration Glucagon 1 mg 04/09/20 08:20 Glucagon For Inj 1 Mg Vial IM PRN PRN Hypoglycemia Protocol Glucose 15 gm 04/09/20 08:20 Glucose Oral Gel 15 Gm Of Glucse In 37.5 Gm Tube PO PRN PRN Hypoglycemia Protocol Dextrose 1,000 mls @ 100 mls/hr 04/09/20 08:20 Dextrose 5% 1,000 Ml IVPB PRN PRN Hypoglycemia Protocol Insulin Aspart 4 - 8 units 04/09/20 16:30 04/11/20 09:33 Insulin Aspart (*Bkc) 100
[2020-04-11 11:23] LABS: Potassium Urine Random 9.3 meq/L; Sodium Urine Random 103 meq/L
[2020-04-11 12:22] LABS: Protein Urine Trace mg/dL (Negative)
[2020-04-11 12:59] LABS: Glucose Point of Care 448 (65-105)
[2020-04-11] MEDS: INSULIN ASPART (*BKC) 100 UNITS/ML 14 UNITS SUB-Q (13:12)
[2020-04-11] MEDS: INSULIN ASPART (*BKC) 100 UNITS/ML 11 UNITS SUB-Q ×2 (13:13→17:32)
[2020-04-11] MEDS: polyethylene glycoL 3350 17 GM POWD.PACK PO (13:37)
[2020-04-11 14:00] VITALS: BP 104/56; PULSE 95; RESP 15; TEMP 36.6; O2SAT 100
[2020-04-11 16:45] LABS: Potassium 4.4 mmol/L (3.4-5.0)
[2020-04-11 17:31] LABS: Glucose Point of Care 322 (65-105)
[2020-04-11 20:55] LABS: Glucose Point of Care 254 (65-105)
[2020-04-11 22:00] VITALS: BP 118/58; PULSE 88; RESP 21; TEMP 36.8; O2SAT 100
[2020-04-12 05:15] LABS: Hematocrit 32.4 % (37.0-47.0); Hemoglobin 10.8 g/dL (12.0-15.0); Mean Corpuscular HGB Conc 33.3 g/dl (32-36); Mean Corpuscular Hemoglobin 27.3 pg (26-34); Mean Platelet Volume 10.8 fl (7.4-10.4); Platelet Count Result 161 k/mm3 (150-375); Red Blood Count 3.95 M/mm3 (4.2-5.4); Red Cell Distribution Width 18.7 % (11.5-14.5)
[2020-04-12 05:59] LABS: Alanine Aminotransferase 28 U/L (4-35); Albumin Level 2.8 g/dL (3.7-5.6); Alkaline Phosphatase 54 U/L (45-116); Anion Gap 1 mmol/L (8-16); Aspartate Amino Transferase 51 U/L (14-36); Bilirubin,Total 0.1 mg/dL (0.2-1.3); Blood Urea Nitrogen 6 mg/dL (8-21); Calcium 8.2 mg/dL (8.9-10.7); Carbon Dioxide 31 mmol/L (22-30); Chloride 103 mmol/L (98-107); Estimated CRCL calculation 186 ml/min; Estimated Glomerular Filt Rate > 60; Glucose 149 mg/dL (65-105); Magnesium 1.8 mg/dL (1.6-2.3); Phosphorus 4.7 mg/dL (2.5-4.5); Sodium 135 mmol/L (134-143)
[2020-04-12 06:00] VITALS: BP 109/56; PULSE 77; RESP 16; TEMP 36; O2SAT 99
[2020-04-12 06:50] LABS: Glucose Point of Care 109 (65-105)
[2020-04-12 08:43] LABS: Glucose Point of Care 202 (65-105)
[2020-04-12] MEDS: INSULIN ASPART (*BKC) 100 UNITS/ML SUB-Q ×4 (08:47→21:10)
[2020-04-12] MEDS: INSULIN ASPART (*BKC) 100 UNITS/ML 11 UNITS SUB-Q ×2 (08:47→12:22)
[2020-04-12] MEDS: INSULIN GLARGINE (*BKC) 100 UNITS/ML 30 UNITS SUB-Q (08:48)
[2020-04-12] MEDS: FAMOTIDINE 20 MG/2 ML VIAL IV PUSH (08:53)
[2020-04-12 10:07] VITALS: O2SAT 98
--- NOTE | 2020-04-12 11:31 | PM.DS ---
DS: Admitting Diagnosis Admitting Diagnosis Admitting Diagnosis: DKA DS: Discharge Diagnosis Discharge Diagnosis (1) Diabetic keto-acidosis: Code(s): E11.10 - Type 2 diabetes mellitus with ketoacidosis without coma Status: Acute Assessment and Plan: associated with electrolyte anomaly hypokalemia patient was treated with DKA protocol acidosis resolved IV insulin was discontinued blood sugar has improved (2) Diabetes mellitus, new onset: Code(s): E11.9 - Type 2 diabetes mellitus without complications Status: Acute Assessment and Plan: insulin dose was adjusted Lantus 30 daily aspart 11 t.i.d. improved continue current regimen now expected to improve with diet and exercise and current regime (3) Bulimia: Code(s): F50.2 - Bulimia nervosa Status: Inactive Assessment and Plan: follow-up with PCP (4) Hypokalemia: Code(s): E87.6 - Hypokalemia Status: Acute Assessment and Plan: replace potassium improved with 2 doses of Aldactone repeat potassium as outpatient follow-up with the seafood farmer DS: Summary Hospital Course Hospital Course: patient was admitted to the hospital with nausea vomiting was found to have a DKA was treated with insulin drip her condition improved insulin drip was switched to Lantus and aspart with improvement in the condition patient also has hypokalemia potassium replaced was given 2 doses of Aldactone I think hypokalemia multifactorial secondary to DKA dieting significantly improved repeat potassium and 3-5 days follow-up with PCP as outpatient also 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 for evaluation for insulin pump Time Spent with Patient Time attestation: Total time spent providing and/or coordinating discharge services: Exam Narrative: Exam Narrative: Alert Chest no wheeze crackles Abdomen nontender nondistended CVS S1 + S2 Lower extremity edema DS: Data Data Completed and Pending Labs on day of discharge: Labs from last 24 hours 04/12/20 04/12/20 04/12/20 08:24 04:50 04:50 WBC 6.0 RBC 3.95 L Hgb 10.8 L Hct 32.4 L MCV 82.0 MCH 27.3 MCHC 33.3 RDW 18.7 H Plt Count 161 MPV 10.8 H Sodium 135 Potassium 4.0 Chloride 103 Carbon Dioxide 31 H Anion Gap 1 L BUN 6 L Creatinine 0.40 L Estim Creat Clear Calc 186 Estimated GFR > 60 Glucose 149 H POC Capillary Glucose 202 H Calcium 8.2 L Phosphorus 4.7 H Magnesium 1.8 Total Bilirubin 0.1 L AST 51 H ALT 28 Alkaline Phosphatase 54 Total Protein 5.0 L Albumin 2.8 L Urine Protein 04/12/20 04/11/20 04/11/20 00:35 20:20 17:08 WBC RBC Hgb Hct MCV MCH MCHC RDW Plt Count MPV Sodium Potassium Chloride Carbon Dioxide Anion Gap BUN Creatinine Estim Creat Clear Calc Estimated GFR Glucose POC Capillary Glucose 109 254 H 322 H Calcium Phosphorus Magnesium Total Bilirubin AST ALT Alkaline Phosphatase Total Protein Albumin Urine Protein 04/11/20 04/11/20 04/11/20 16:05 12:54 10:43 WBC RBC Hgb Hct MCV MCH MCHC RDW Plt Count MPV Sodium Potassium 4.4 Chloride Carbon Dioxide Anion Gap BUN Creatinine Estim Creat Clear Calc Estimated GFR Glucose POC Capillary Glucose 448 H Calcium Phosphorus Magnesium Total Bilirubin AST ALT Alkaline Phosphatase Total Protein Albumin Urine Protein Trace Discharge Plan Discharge Attending physician on discharge: Jame Cook M.A. Consulting providers: Wyatt Drew Discharging Clinician: Jame Cook M.A. Patient Disposition: Home, Self-Care Activity: as tolerated Diet: diabetic Patient Instructions: Antibiotic Form, Spironolactone (By mouth), Insulin Aspart, Rec
[2020-04-12 12:40] LABS: Glucose Point of Care 341 (65-105)
[2020-04-12 14:00] VITALS: BP 104/49; PULSE 71; RESP 16; TEMP 36.2; O2SAT 100
--- NOTE | 2020-04-12 15:01 | PC.NURSE ---
Observed patient give herself insulin injections with morning and noon doses today. Patient gave injections in her thighs. Uses proper technique and gives injection without difficulty. I did not review drawing up insulin per vial as patient was shown previously but will have an insulin pen at home and will not need to draw up insulin.
[2020-04-12 15:34] LABS: Potassium 4.3 mmol/L (3.4-5.0)
[2020-04-12 17:18] LABS: Glucose Point of Care 256 (65-105)
[2020-04-12] MEDS: INSULIN ASPART (*BKC) 100 UNITS/ML 15 UNITS SUB-Q (17:52)
[2020-04-12 20:00] VITALS: PULSE 71; RESP 16; O2SAT 100
[2020-04-12] MEDS: FAMOTIDINE 20 MG TABLET PO (21:07)
[2020-04-12 21:30] LABS: Glucose Point of Care 222 (65-105)
[2020-04-12 22:00] VITALS: BP 117/58; PULSE 74; RESP 21; TEMP 36.6; O2SAT 100
[2020-04-13 05:41] LABS: Hematocrit 32.3 % (37.0-47.0); Hemoglobin 10.5 g/dL (12.0-15.0); Mean Corpuscular HGB Conc 32.5 g/dl (32-36); Mean Corpuscular Hemoglobin 27.1 pg (26-34); Mean Corpuscular Volume 83.5 fl (80-100); Mean Platelet Volume 10.6 fl (7.4-10.4); Platelet Count Result 176 k/mm3 (150-375); Red Blood Count 3.87 M/mm3 (4.2-5.4); Red Cell Distribution Width 18.6 % (11.5-14.5); White Blood Count 5.5 K/mm3 (4.5-10.0)
[2020-04-13 06:00] VITALS: BP 107/59; PULSE 75; RESP 20; TEMP 36.3; O2SAT 99
[2020-04-13 06:12] LABS: Alanine Aminotransferase 81 U/L (4-35); Albumin Level 2.7 g/dL (3.7-5.6); Alkaline Phosphatase 59 U/L (45-116); Anion Gap -2 mmol/L (8-16); Aspartate Amino Transferase 148 U/L (14-36); Bilirubin,Total < 0.1 mg/dL (0.2-1.3); Blood Urea Nitrogen 6 mg/dL (8-21); Calcium 8.5 mg/dL (8.9-10.7); Carbon Dioxide 35 mmol/L (22-30); Chloride 102 mmol/L (98-107); Estimated CRCL calculation 156 ml/min; Estimated Glomerular Filt Rate > 60; Glucose 138 mg/dL (65-105); Magnesium 1.8 mg/dL (1.6-2.3); Phosphorus 6.1 mg/dL (2.5-4.5); Potassium 3.8 mmol/L (3.4-5.0); Sodium 135 mmol/L (134-143)
[2020-04-13] MEDS: INSULIN ASPART (*BKC) 100 UNITS/ML 15 UNITS SUB-Q ×2 (08:07→11:36)
[2020-04-13] MEDS: INSULIN GLARGINE (*BKC) 100 UNITS/ML 30 UNITS SUB-Q (08:08)
[2020-04-13] MEDS: FAMOTIDINE 20 MG TABLET PO (08:12)
[2020-04-13 08:15] LABS: Glucose Point of Care 162 (65-105)
[2020-04-13] MEDS: INSULIN ASPART (*BKC) 100 UNITS/ML SUB-Q (11:37)
[2020-04-13 11:39] LABS: Glucose Point of Care 226 (65-105)
== END 2020-04-13 12:40 | disposition home or self-care (01) | DRG 638 ==
LOC: ANHED 16:48 → ANHICU 19:13 → ANH2MED 04-10 16:23 → ANHICU 04-16 14:26
PROVIDERS: Internal Medicine; Physician Assistant; Admitting Provider Family Medicine; Emergency Provider Emergency Medicine; PCP Pediatrics; Visit Provider Internal Medicine
DX: E11.10 Type 2 diabetes mellitus with ketoacidosis without coma (principal); F50.2 Bulimia nervosa; E87.6 Hypokalemia; E87.8 Other disorders of electrolyte and fluid balance, not elsewhere classified
CPT/HCPCS: 36415; 36600; 71046; 80048; 80053; 80076; 81001; 81002; 81025; 82010; 82570; 82728; 82805; 82948; 83036; 83735; 84100; 84132; 84133; 84300; 85025; 85027; 85380; 85652; 86140; 86664; 86665; 86769; 93005; 96361; 96365; 99291; A9270; J1650; J1815; J2405; J3480; J7030; J7050

== ENCOUNTER 2020-05-01 14:45 | Outpatient (CLI) | payer BC, SELFPAY | END 2020-05-01 14:46 | disposition home or self-care (01) | LOC: ANHCOVIDVC 14:45 | PROVIDERS: PCP Pediatrics | DX: Z23 Encounter for immunization (principal) | CPT/HCPCS: 0001A; 91300 ==

== ENCOUNTER 2020-05-22 14:44 | Outpatient (CLI) | payer BC, SELFPAY | END 2020-05-22 14:45 | disposition home or self-care (01) | LOC: ANHCOVIDVC 14:44 | PROVIDERS: PCP Pediatrics | DX: Z23 Encounter for immunization (principal) | CPT/HCPCS: 0002A; 91300 ==

== ENCOUNTER 2020-12-21 13:39 | Outpatient (RCR) | payer BC, SELFPAY ==
[2020-12-21 14:25] LABS: Hematocrit 34.7 % (37.0-47.0); Hemoglobin 11.8 g/dL (12.0-15.0)
[2020-12-21 15:17] LABS: HIV 1/2 Ab P24 Ag Result Negative (Negative)
[2020-12-22 10:52] LABS: Rapid Plasma Reagin Non-Reactive (NonReactive)
[2020-12-22] MEDS: RHO(D) IMMUNE GLOBULIN 300 MCG/2 ML SYRINGE IM (13:14)
== END 2021-03-21 23:59 | disposition home or self-care (01) ==
LOC: ANHLAB 13:39
PROVIDERS: Visit Provider Obstetrics & Gynecology
DX: Z11.4 Encounter for screening for human immunodeficiency virus [HIV] (principal); Z29.13 Encounter for prophylactic Rho(D) immune globulin; O36.0190 Maternal care for anti-D [Rh] antibodies, unspecified trimester, not applicable or unspecified; Z3A.00 Weeks of gestation of pregnancy not specified
CPT/HCPCS: 36415; 85014; 85018; 85461; 86592; 86703; 90384; 96372; G0432; J2790

== ENCOUNTER 2021-02-24 10:06 | Inpatient (IN) | payer BC, SELFPAY ==
[2021-02-24] VITALS (54 sets, daily range): BP systolic 88–139; BP diastolic 34–87; PULSE 55–215; RESP 16–20; TEMP 36.3–37.6; O2SAT 97–100; BMI 40.4
--- OUTSIDE RECORDS SUMMARY | 2021-02-24 10:11 | XMS_ITS | Encounter Summary ---
:2000 Author Care Team Providers Name Role Phone Kwesi Kc DO Primary Care Provider [phone] Reason for Visit None recorded. Assessment and Plan 1. Pre-existing type 1 diabetes mellitus in ? non-stress test Discussion Note: None recorded.Patient educational handouts: No information available. Plan of Care Reminders Provider Appointments Surg Post Yolanda T herese Op 03/03/2021 MD Balaji 2:45PM ? Ob Routine Yolanda Th erese 03/08/2021 MD Balaji 2:30PM Lab None ? ? recorded. Referral None ? ? recorded. Procedures None ? ? recorded. Surgeries None ? ? recorded. Imaging Non-stress [place] Test 02/04/2021 Medications Name Start Date ? ? Dexcom G6 Sensor ? Dexcom G6 Sensor device ? CHANGE SENSOR EVERY 10 DAYS Dexcom G6 Transmitter device ? CHANGE TRANSMITTER EVERY 90 DAYS Novolog U-100 Insulin aspart 100 unit/mL subcutaneous solution ? Omnipod Dash Insulin Pod ? Omnipod Dash Insulin Pod subcutaneous cartridge ? CHANGE OMNIPOD POD EVERY 2 DAYS ondansetron HCl 4 mg tablet ?
--- OUTSIDE RECORDS SUMMARY | 2021-02-24 10:11 | XMS_ITS | Encounter Summary ---
:2000 Author Care Team Providers Name Role Phone Kwesi MccallumMitchRadha Primary Care Provider [phone] Reason for Visit None recorded. Assessment and Plan 1. Pre-existing type 1 diabetes mellitus in Pt currently on insulin pump a nd continuous glucose monitoring. She is managed by [facility] physicians. MFM consul t also. ? non-stress test Discussion Note: None recorded.Patient educational handouts: No information available. Plan of Care Reminders Provider Appointments Surg Post Yolanda T herese Op 03/03/2021 MD Balaji 2:45PM ? Ob Routine Yolanda Th erese 03/08/2021 MD Balaji 2:30PM Lab None ? ? recorded. Referral None ? ? recorded. Procedures None ? ? recorded. Surgeries None ? ? recorded. Imaging Non-stress [place] Test 02/01/2021 Medications Name Start Date ? ? Dexcom G6 Sensor ? Dexcom G6 Sensor device ? CHANGE SENSOR EVERY 10 DAYS Dexcom G6 Transmitter device ? CHANGE TRANSMITTER EVERY 90 DAYS Novolog U-100 Insulin aspart 100 unit/mL subcutaneous solution ? Omnipod Dash Insulin Pod ?
--- OUTSIDE RECORDS SUMMARY | 2021-02-24 10:11 | XMS_ITS | Encounter Summary ---
:2000 Author Care Team Providers Name Role Phone Kwesi Kc Primary Care Provider [phone] Reason for Visit OB visit [id number] Assessment and Plan 1. Routine care 2. Pre-existing type 1 diabetes mellitus in Discussion Note: None recorded.Patient educational handouts: No information available. Plan of Care Reminders Provider Appointments Surg Post Op Am y Sharri 03/03/2021 MD Balaji 2:45PM ? Ob Routine Yolanda Th erese 03/08/2021 MD Balaji 2:30PM Lab None ? ? recorded. Referral None ? ? recorded. Procedures None ? ? recorded. Surgeries None ? ? recorded. Imaging None ? ? recorded. Medications Name Start Date ? ? Dexcom G6 Sensor ? Dexcom G6 Sensor device ? CHANGE SENSOR EVERY 10 DAYS Dexcom G6 Transmitter device ? CHANGE TRANSMITTER EVERY 90 DAYS Novolog U-100 Insulin aspart 100 unit/mL subcutaneous solution ? Omnipod Dash Insulin Pod ? Omnipod Dash Insulin Pod subcutaneous cartridge ? CHANGE OMNIPOD POD EVERY 2 DAYS ondansetron HCl 4 mg tablet ? 1 tablet by mouth [place]
--- OUTSIDE RECORDS SUMMARY | 2021-02-24 10:11 | XMS_ITS | Encounter Summary ---
:2000 Author Care Team Providers Name Role Phone Kwesi MccallumMitchRadha Primary Care Provider [phone] Reason for Visit None recorded. Assessment and Plan 1. Pre-existing type 1 diabetes mellitus in Pt currently on insulin pump a nd continuous glucose monitoring. She is managed by [facility] physicians. MFM consul t also. ? [...] ? recorded. Imaging Non-stress [place] Test 02/15/2021 Medications Name Start Date ? ? Dexcom G6 Sensor ? Dexcom G6 Sensor device ? CHANGE SENSOR EVERY 10 DAYS Dexcom G6 Transmitter device ? CHANGE TRANSMITTER EVERY 90 DAYS Novolog U-100 Insulin aspart 100 unit/mL subcutaneous solution ? Omnipod Dash Insulin Pod ?
--- OUTSIDE RECORDS SUMMARY | 2021-02-24 10:11 | XMS_ITS | Encounter Summary ---
:2000 Author Care Team Providers Name Role Phone Kwesi Kc DO Primary Care Provider [phone] Reason for Visit None recorded. Assessment and [...] ? recorded. Imaging Non-stress [place] Test 02/11/2021 Medications Name Start Date ? ? Dexcom [...]
--- OUTSIDE RECORDS SUMMARY | 2021-02-24 10:11 | XMS_ITS | Encounter Summary ---
:2000 Author Care Team Providers Name Role Phone Kwesi Kc Primary Care Provider [phone] Reason for Visit OB visit Assessment and Plan 1. Large for gestation age fetus 2. Type 1 diabetes mellitus 3. Routine care Discussion Note: None recorded.Patient educational handouts: No [...] 4 mg tablet ? 1 tablet by skyla
--- OUTSIDE RECORDS SUMMARY | 2021-02-24 10:11 | XMS_ITS | Encounter Summary ---
:2000 Author Care Team Providers Name Role Phone Kwesi MccallumMitchRadha Primary Care Provider [phone] Reason for Visit None recorded. Assessment and Plan 1. Pre-existing type 1 diabetes mellitus in Pt currently on insulin pump a nd continuous glucose monitoring. She is [place] [facility]. MFM consul t also. ? non-stress [...] ? recorded. Imaging Non-stress [place] Test 02/22/2021 Medications Name Start Date ? ? Dexcom G6 Sensor ? Dexcom G6 Sensor device ? CHANGE SENSOR EVERY 10 DAYS Dexcom G6 Transmitter device ? CHANGE TRANSMITTER EVERY 90 DAYS Novolog U-100 Insulin aspart 100 unit/mL subcutaneous solution ? Omnipod Dash Insulin Pod ?
--- OUTSIDE RECORDS SUMMARY | 2021-02-24 10:11 | XMS_ITS ---
:2000 Author Care Team Providers Name Role Phone ELIF GONZALEZ DO Primary Care Provider [phone] Allergies Code Code System Name Reaction Severity Status Onset NKDA ? Medications Name Status Start Date Stop Date ? ? Baqsimi 3 mg/actuation nasal spray Unknown ? Not available PLEASE SEE ATTACHED FOR DETAILED DIRECTIONS Basaglar KwikPen U-100 Insulin 100 Completed ? 12/04/2020 unit/mL (3 mL) subcutaneous BD Angela 2nd Gen Pen Needle 32 gauge x Unknown ? Not available USE UP TO 6 TIMES DAILY dexamethasone 6 mg tablet Unknown ? Not av ailable TAKE 1 TABLET BY MOUTH ONCE FOR 1 DOSE Dexcom G6 Continuous Improvement Black Belt misc Unknown ? Not avai lable USE DIRECTED FOR CONTINUOUS GLUCOSE MONITORING Dexcom G6 Sensor Active ? Not available Dexcom G6 Sensor device Active ? Not avai lable Dexcom G6 Transmitter device Active ? Not available Glucagon Emergency Kit 1 mg solution for injection Unknown ? Not available INJECT 1ML NEEDED FOR HYPOGYLCEMIA hydrocortisone 2.5 % topical cream Unknown ? Not available APPLY TO AFFECTED AREA 2 TIMES DAILY FOR 10 DAYS Ketostix strips Unknown ? Not available TEST FIRST IN THE MORNING URINE AND DIRECTED nitrofurantoin Completed ? 12/02/2020 monohydrate/macrocrystals 100 mg capsule Novolog Flexpen U-100 Insulin aspart 100 unit/mL (3 mL) subcutan eous Unknown ? Not available INJECT 15 UNITS (0.15 ML) SUBCUTANEOUSLY 3 TIMES A DAY WITH KELECHI LS
--- OUTSIDE RECORDS SUMMARY | 2021-02-24 10:11 | XMS_ITS | Encounter Summary ---
:2000 Author Care Team Providers Name Role Phone Kwesi Kc Primary Care Provider [phone] Reason for Visit OB visit Assessment and Plan 1. Large for gestation age fetus 2. Type 1 diabetes mellitus 3. Breech presentation ? section (SURG) Discussion Note: None recorded.Patient educational handouts: No information available. Plan of Care Reminders Provider Appointments Surg Post Op Am y Sharri 03/03/2021 MD Balaji 2:45PM ? Ob Routine Yolanda Th erese 03/08/2021 MD Balaji 2:30PM Lab None ? ? recorded. Referral None ? ? recorded. Procedures None ? ? recorded. Surgeries [facility] Surgery Section (SURG) 02/24/2021 Balaji Imaging None ? ? recorded. Medications Name Start Date ? ? Dexcom G6 Sensor ? Dexcom G6 Sensor device ? CHANGE SENSOR EVERY 10 DAYS Dexcom G6 Transmitter device ? CHANGE TRANSMITTER EVERY 90 DAYS Novolog U-100 Insulin aspart 100 unit/mL subcutaneous solution ? Omnipod Dash Insulin Pod ? Omnipod Dash Insulin Pod subcutaneous cartridge
--- OUTSIDE RECORDS SUMMARY | 2021-02-24 10:11 | XMS_ITS | Encounter Summary ---
:2000 Author Care Team Providers Name Role Phone Kwesi Kc DO Primary Care Provider [phone] Reason for Visit None recorded. Assessment [...] ? recorded. Imaging Non-stress [place] Test 02/08/2021 Medications Name Start Date ? ? Dexcom [...]
--- OUTSIDE RECORDS SUMMARY | 2021-02-24 10:11 | XMS_ITS | Encounter Summary ---
:2000 Author Care Team Providers Name Role Phone Kwesi Kc Primary Care Provider [phone] Reason for Visit OB visit Assessment and Plan 1. Large for gestation age fetus 2. Type 1 diabetes mellitus Discussion Note: None recorded.Patient educational handouts: No [...] mg tablet ? 1 tablet by mouth every 4-6 hours [facility]
--- OUTSIDE RECORDS SUMMARY | 2021-02-24 10:12 | XMS_ITS | Encounter Summary ---
:2000 Author Care Team Providers Name Role Phone Kwesi Kc Primary Care Provider [phone] Reason for Visit OB visit OB Visit Assessment and Plan 1. Type 1 diabetes mellitus 2. Routine care Discussion Note: None recorded.Patient educational [...]
--- OUTSIDE RECORDS SUMMARY | 2021-02-24 10:12 | XMS_ITS | Encounter Summary ---
:2000 Author Care Team Providers Name Role Phone Kwesi Kc Primary Care Provider [phone] Reason for Visit OB visit Assessment and Plan Assessment Note n. 1. Large for gestation age fetus 2. [...]
--- OUTSIDE RECORDS SUMMARY | 2021-02-24 10:12 | XMS_ITS | Encounter Summary ---
:2000 Author Care Team Providers Name Role Phone Kwesi Kc Primary Care Provider [phone] Reason for Visit NST [id number] EDC 03/17/2021 Assessment and Plan 1. Type 1 diabetes mellitus ? non-stress test Discussion Note: None recorded.Patient educational handouts: No information available. Plan of Care Reminders Provider Appointments Surg Post Yolanda T herese Op 03/03/2021 MD Balaji 2:45PM ? Ob Routine Yolanda Th erese 03/08/2021 MD Balaji 2:30PM Lab None ? ? recorded. Referral None ? ? recorded. Procedures None ? ? recorded. Surgeries None ? ? recorded. Imaging Non-stress [place] Test 01/25/2021 Medications Name Start Date ? ? Dexcom [...] ondansetron HCl 4 mg tablet ? 1 tab
--- OUTSIDE RECORDS SUMMARY | 2021-02-24 10:12 | XMS_ITS | Encounter Summary ---
:2000 Author Care Team Providers Name Role Phone Kwesi Kc DO Primary Care Provider [phone] Reason for Visit None recorded. Assessment and [...] ? recorded. Imaging Non-stress [place] Test 01/28/2021 Medications Name Start Date ? ? Dexcom [...]
--- OUTSIDE RECORDS SUMMARY | 2021-02-24 10:12 | XMS_ITS | Encounter Summary ---
:2000 Author Care Team Providers Name Role Phone Kwesi Kc Primary Care Provider [phone] Reason for Visit OB visit Assessment [...] by mouth every 4-6 hours as needed [facility] [place]
--- OUTSIDE RECORDS SUMMARY | 2021-02-24 10:12 | XMS_ITS | Encounter Summary ---
:2000 Author Care Team Providers Name Role Phone Kwesi Kc Primary Care Provider [phone] Reason for Visit None recorded. Assessment and Plan 1. management consult consult completed. Initiating discussed. Pt instructed on the importance of kangaroo care and being skin to skin with after delivery to initiate early . Pt in structed on proper latch and signs to [facility] for to indicate a poor latch. Pt instructed on importance of colostrum and nutritional needs of in the first couple days of life. Pt instructed on ful l milk coming in and engorgement. Pt ins tructed on schedule and how often and how long to nurse infant. Pt instructed on importance of feeding every 1-3 hours and on demand and impo rtance of waking to nurse a minim um of every 3 hours until is well established and infant is gaining weight appropriately. Pt also instructed on pumping if the does not nurse well. Pt has a history of breast reduct ion surgery. Pt states a clark hole incision was done to spare her nipple and areola and she was informed they did not damage the nerve endings. Pt is unsure if m ilk ducts were cut. Pt informed breast m ilk supply can be an issue after breast reduction surgery. Pt instructed on importance of breast tissue stimulation at least every 2 hours initially and then ever y 3 after breast feeding is well establi shed. Importance of pumping if the infant does not nurse well reinforced. Pt informed latch issues and/or milk supply issues can be addressed after delivery if th ose issues occur. Pt informed even if th e infant nurses well she may need to pump after the nurses for extra stimulation and to help increase milk supply. Pt verbalized understanding of all infor mation discussed and was provided with h andouts to read at home and call if she has any questions. Ana Baxter WEB SITE ADMIN CLC Discussion Note: None recorded.Patient educational handouts: No information available. Plan of Care Reminders Provider
--- OUTSIDE RECORDS SUMMARY | 2021-02-24 10:12 | XMS_ITS | Encounter Summary ---
:2000 Author Care Team Providers Name Role Phone Kwesi Kc Primary Care Provider [phone] Reason for Visit OB visit Assessment and Plan 1. Type 1 diabetes mellitus 2. Bulimia nervosa 3. Routine care Discussion Note: None recorded.Patient [...] ? 1 tablet by mouth every 4-6 h
--- NOTE | 2021-02-24 10:50 | LDADM ---
This patient, Pooja Long, was admitted to Labor/Delivery/Recovery 119 on 02/24/21 at 10:06. Plans for surgery/ and pain management were discussed with patient. Patient/family oriented to hospital policies and general routines including ID bracelet, bed and alarms, visiting hours, pain management, procedures, bathroom and other care routines, personal items, smoking policy, room service/diet and guest tray routines, security routines, and visiting hours. Patient/Family are encouraged to report perceived risks to care and to ask questions if they do not understand what they are told or what they should do.
[2021-02-24] MEDS: LACTATED RINGERS 1,000 ML 125 ML IV CONT (11:03)
[2021-02-24 11:06] LABS: Glucose Point of Care 83 mg/dl (65-105)
[2021-02-24 11:15] LABS: Basophils Percent Auto 0.3 % (0.2-1.2); Eosinophils Absolute Auto 0.1 K/mm3 (0-0.3); Eosinophils Percent Auto 1.1 % (0-4.4); Hematocrit 32.8 % (37.0-47.0); Hemoglobin 11.3 g/dL (12.0-15.0); Immature Granulocyte Absolute 0.07 K/mm3 (0.00-0.031); Immature Granulocyte Percent A 0.7 % (0-0.5); Lymphocytes Absolute Auto 2.13 K/mm3 (0.9-3.2); Lymphocytes Percent Auto 20.6 % (18.3-44.2); Mean Corpuscular HGB Conc 34.5 g/dl (32-36); Mean Corpuscular Hemoglobin 31.1 pg (26-34); Mean Corpuscular Volume 90.4 fl (80-100); Mean Platelet Volume 9.5 fl (7.4-10.4); Monocytes Absolute Auto 1.1 K/mm3 (0.1-0.6); Neutrophils Absolute Auto 6.9 K/mm3 (1.3-6.7); Neutrophils Percent Auto 66.3 % (45.5-73.1); Platelet Count Result 159 k/mm3 (150-375); Red Blood Count 3.63 M/mm3 (4.2-5.4); Red Cell Distribution Width 12.9 % (11.5-14.5); White Blood Count 10.3 K/mm3 (4.5-10.0)
--- NOTE | 2021-02-24 11:45 | WPDANESEPPF ---
Anes - Initial Pre Proc Eval Procedure: Operation Date: 02/24/21 12:00 Proposed Procedures p Primary Section - Yolanda Carpio MD Date/Time: 02/24/21 11:45 Surgeon: Yolanda Carpio MD Pre Op Diagnosis: C/S Patient Data Age: 20 Gender: F Height: 1.63 m Weight: 107 kg Last Vital Signs Pulse 86 02/24/21 10:45 BP 122/61 02/24/21 10:45 Allergies Allergy/AdvReac Type Severity Reaction Status Date / Time No Known Allergies Allergy Verified 02/17/21 14:30 Home Medications Medication Instructions Recorded Confirmed Type PNV cmb#95-ferrous fumarate-FA 1 tablet PO DAILY 02/24/21 02/24/21 History [] aspirin 162 mg PO DAILY 02/24/21 02/24/21 History subcutaneous insulin pump [Omnipod 02/24/21 02/24/21 History Insulin Management] Laboratory Tests 02/24/21 02/24/21 02/24/21 10:55 11:01 11:01 WBC 10.3 K/mm3 H K/mm3 (4.5-10.0) RBC 3.63 M/mm3 L M/mm3 (4.2-5.4) Hgb 11.3 g/dL L g/dL (12.0-15.0) Hct 32.8 % L % (37.0-47.0) MCV 90.4 fl fl (80-100) MCH 31.1 pg pg (26-34) MCHC 34.5 g/dl g/dl (32-36) RDW 12.9 % % (11.5-14.5) Plt Count 159 k/mm3 k/mm3 (150-375) MPV 9.5 fl fl (7.4-10.4) Immature Gran % (Auto) 0.7 % H % (0-0.5) Neut % (Auto) 66.3 % % (45.5-73.1) Lymph % (Auto) 20.6 % % (18.3-44.2) [place] % (Auto) 11.0 % H % (2.6-8.5) Eos % (Auto) 1.1 % % (0-4.4) Baso % (Auto) 0.3 % % (0.2-1.2) Lymph # (Auto) 2.13 K/mm3 K/mm3 (0.9-3.2) [place] # (Auto) 1.1 K/mm3 H K/mm3 (0.1-0.6) Eos # (Auto) 0.1 K/mm3 K/mm3 (0-0.3) Baso # (Auto) 0.0 K/mm3 K/mm3 (0.0-0.1) Abs Immat Gran (auto) 0.07 K/mm3 H K/mm3 (0.00-0.031) Absolute Neuts (auto) 6.9 K/mm3 H K/mm3 (1.3-6.7) Absolute Nucleated RBC 0.0 K/mm3 K/mm3 (0.0-0.012) Nucleated RBC % 0.0 % % (0.0-0.2) POC Capillary Glucose 83 mg/dl mg/dl (65-105) RPR Pending Patient hx anesthesia problems: none Family hx anesthesia problems: none Results Review: All pre-operative results and documents have been reviewed as part of the pre-operative evaluation. [facility] Past Medical History Medical History (Updated 02/24/21 @ 11:45 by Jayme Gomes DO) Bulimia Diabetes mellitus, new onset Surgical History Surgical History (Updated 04/08/20 @ 23:19 by Isis Blackwell PA-C) History of bilateral breast reduction surgery Status post myringotomy with insertion of tube Family History Family History Grandparent Diabetes mellitus Father Asthma Sibling Anxiety Social History Social History (Updated 04/08/20 @ 23:20 by Isis Blackwell PA-C) Social History: The patient lives in [place], [place]. 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 Lifelong nonsmoker. No alcohol or illicit substance abuse. Her parents Irish and Torey are her surrogate decision makers and she wishes to be a full code. Substance use: never Spiritual care concerns: No Anes - Eval Final PreProcedure Day of Procedure 02/24/21 11:45 Patient weight: morbidly obese Heart: regular rate and rhythm Lungs: clear to auscultation and normal air movement Airway: Mallampati scale class II Neurological: alert and oriented Last oral intake: >/= 8 hours ASA classification: III Emergent: no Anesthetic plan: proceed Anesthesia type and monitoring: regional spinal and standard monitoring Results Review: All pre-operative results and documents have been reviewed as part of the pre-operative evaluation. Informed Consent: The patient's anesthetic plan and its attendant risks and benefits were discussed with the patient/family/POA. Questions were solicited and answers provided to the satisfactio
--- NOTE | 2021-02-24 11:52 | PM.IMHP ---
H&P: HPI History of Present Illness Date/Time: 02/24/21 11:52 Chief Complaint: breech, Cs Narrative: Pooja is a 20yo type 1DM, uncontrolled this , MFM managing insulin pump. Baby now breech, and was macrosomic >99% last week. also complicated by Rh neg, got Rhogam, and history of bulemia, in remission. Review of Systems Review of Systems: All systems reviewed & are unremarkable except as noted in HPI and below PMFSH Past Medical History Medical History (Updated 02/24/21 @ 11:54 by Yolanda Carpio MD) Bulimia Diabetes mellitus, new onset Surgical History Surgical History (Updated 04/08/20 @ 23:19 by Isis Blackwell PA-C) History of bilateral breast reduction surgery Status post myringotomy with insertion of tube Family History Family History Grandparent Diabetes mellitus Father Asthma Sibling Anxiety Social History Social History (Updated 04/08/20 @ 23:20 by Isis Blackwell PA-C) Social History: The patient lives in [place], [place]. She is studying [employer] at [employer] and works at a local [employer]. Lifelong nonsmoker. No alcohol or illicit substance abuse. Her parents Irish and Torey are her surrogate decision makers and she wishes to be a full code. Substance use: never Spiritual care concerns: No Meds Home Medications and Allergies Home Medications Medication Instructions Recorded Confirmed Type PNV cmb#95-ferrous fumarate-FA 1 tablet PO DAILY 02/24/21 02/24/21 History [] aspirin 162 mg PO DAILY 02/24/21 02/24/21 History subcutaneous insulin pump [Omnipod 02/24/21 02/24/21 History Insulin Management] Allergies Allergy/AdvReac Type Severity Reaction Status Date / Time No Known Allergies Allergy Verified 02/17/21 14:30 Vital Signs Vital Signs - 24 hr 02/24/21 10:40 02/24/21 10:45 Pulse Rate 97 86 Blood Pressure 125/73 122/61 Exam Const: General: no acute distress Resp: Effort & Inspection: normal respiratory effort Auscultation: clear to auscultation bilaterally Cardio: Rate: regular rate Rhythm: regular rhythm GI: GI Palp: Yes Soft to palpation Extrem: General: normal to inspection H&P: Results Labs Labs: Short CBC 02/24/21 Range/Units 11:01 WBC 10.3 H (4.5-10.0) K/mm3 Hgb 11.3 L (12.0-15.0) g/dL Hct 32.8 L (37.0-47.0) % Plt Count 159 (150-375) k/mm3 Assessment and Plan Assessment and plan (1) Type 1 diabetes mellitus: Code(s): E10.9 - Type 1 diabetes mellitus without complications Status: Acute (2) macrosomia affecting management of mother, antepartum: Code(s): O36.60X0 - Maternal care for excessive growth, unspecified trimester, not applicable or unspecified Status: Acute (3) Breech presentation: Code(s): O32.1XX0 - Maternal care for breech presentation, not applicable or unspecified Status: Acute Additional Plan Plan primary CS- breech and macrosomia DM1 uncontrolled- deliver 37w per MFM. insulin pump settings per MFM Discussed RBA, pt consented, all questions answered. will proceed.
--- NOTE | 2021-02-24 11:55 | WPDHPUPDATE1 ---
History and Physical Update Update Date/Time: 02/24/21 11:55 History and Physical has been reviewed, including an updated exam of the patient. There are NO changes in the patient's condition. Risks, benefits, and alternatives have been discussed and questions answered. Patient agrees to proceed with procedure.
[2021-02-24] MEDS: ceFAZolin 2 GM/D5W 50 ML 2 GM/50 ML BAG IVPB (11:59)
--- NOTE | 2021-02-24 13:01 | SUR.PHASEI ---
Arrived in recovery room with 300 ml remaining in IV of 1000 LR with 40 units Pitocin.
--- NOTE | 2021-02-24 13:01 | PM.OBPRVD ---
OB - Delivery Note Procedure Delivery date: 02/24/21 Procedure: Procedures Operation Date: 02/24/21 12:00 <No data on this case meets the specified criteria> Primary low transverse section Route of delivery: Specimen: Yes (placenta) Quantitative Blood Loss (ml): 885 Anesthesia type: Epidural Disposition: floor Complications: none Narrative: The patient was taken to the OR and had her epidural anesthesia dosed adequately. She was placed in dorsal supine position with left lateral tilt. SCDs and last had been placed. She was prepped and draped in the normal sterile fashion. A Pfannensteil skin incision was made and carried through to the underlying layer of fascia. The fascia was incised in the midline and then extended laterally using Milner scissors. The muscles were in the midline and the peritoneum was entered bluntly. The peritoneal incision was extended inferiorly and superiorly with care to avoid the bladder. The bladder blade was then inserted, the vesicouterine peritoneum was grasped, incised with Metzenbaum scissors, and a bladder flap created. The bladder blade was reinserted. A low transverse uterine incision was made with a scalpel and extended bluntly. AROM was performed and fluid was noted to be clear. The baby was delivered easily in breech presentation with the typical maneuvers. The baby's oropharynx was suctioned. After 30 seconds, the cord was clamped and cut and the infant was handed off. Cord blood was obtained and the placenta was then removed manually. The uterus was exteriorized. A moist lap sponge was used to curette the endometrium. The uterine incision was then closed with one layer of 0-Vicryl in a running, locking fashion. Good hemostasis was noted. The posterior cul de sac was irrigated with normal saline and cleared of all clot and debris. The uterus was returned to the abdomen. Both lateral gutters were then irrigated. The rectus muscles were inspected and found to be hemostatic. The fascia was reapproximated using 0-Vicryl in running fashion. The subcutaneous tissue was irrigated with normal saline and made hemostatic with Bovie electrocautery. The subcutaneous tissue was reapproximated with a layer of running 2-0 plain gut. The skin was then closed with absorbable josr. Steri strips and a bandage were applied. The uterus was evacuated. The patient tolerated the procedure very well. All counts were correct. She was taken to the recovery room in good condition. [place] Baby Date of : 02/24/21 Time of : 12:24 Weeks of gestation at delivery: 37 Infant gender: Male Weight (pounds): 11 Weight (ounces): 2 presentation: breech Placenta delivery description: Manual Removal cord vessel description: 3 Vessels and Delayed Cord Clamping score one minute: 5 score five minutes: 8
[2021-02-24 13:06] LABS: Rapid Plasma Reagin Non-Reactive (NonReactive)
[2021-02-24 13:42] LABS: Glucose Point of Care 75 mg/dl (65-105)
[2021-02-24] MEDS: MORPHINE SULFATE INJ (*CRX) 10 MG/ML AMP 2 MG IV PUSH ×2 (14:35→15:04)
[2021-02-24] MEDS: OXYTOCIN 30 UNITS/NS 500 ML 30 UNITS/500 ML BAG 125 UNITS IV CONT (14:55)
--- NOTE | 2021-02-24 15:55 | PC.NURSE ---
Patient transferred to post room #284 per stretcher from labor and delivery. Support person present. Oriented to unit, room, information board, rooming in, admission packet and security measures. Patient verbalizes understanding.
[2021-02-24 17:28] LABS: Glucose Point of Care 67 mg/dl (65-105)
[2021-02-24] MEDS: KCL 20 MEQ/D5/0.45% SOD CHL 1,000 ML 125 ML IV CONT (19:20)
[2021-02-24 21:16] LABS: Glucose Point of Care 187 mg/dl (65-105)
[2021-02-25] VITALS: BP 125/69; PULSE 80; RESP 18; TEMP 37.2; O2SAT 98
[2021-02-25 04:20] VITALS: BP 108/60; PULSE 92; RESP 18; TEMP 36.9; O2SAT 97
[2021-02-25] MEDS: IBUPROFEN 600 MG TABLET PO ×4 (04:28→23:49)
[2021-02-25 04:56] LABS: Basophils Percent Auto 0.2 % (0.2-1.2); Eosinophils Absolute Auto 0.1 K/mm3 (0-0.3); Eosinophils Percent Auto 0.9 % (0-4.4); Hematocrit 31.9 % (37.0-47.0); Hemoglobin 10.9 g/dL (12.0-15.0); Immature Granulocyte Absolute 0.06 K/mm3 (0.00-0.031); Immature Granulocyte Percent A 0.5 % (0-0.5); Lymphocytes Absolute Auto 1.94 K/mm3 (0.9-3.2); Lymphocytes Percent Auto 15.3 % (18.3-44.2); Mean Corpuscular HGB Conc 34.2 g/dl (32-36); Mean Corpuscular Hemoglobin 30.9 pg (26-34); Mean Corpuscular Volume 90.4 fl (80-100); Mean Platelet Volume 10.1 fl (7.4-10.4); Monocytes Absolute Auto 1.4 K/mm3 (0.1-0.6); Monocytes Percent Auto 10.9 % (2.6-8.5); Neutrophils Absolute Auto 9.2 K/mm3 (1.3-6.7); Neutrophils Percent Auto 72.2 % (45.5-73.1); Platelet Count Result 174 k/mm3 (150-375); Red Blood Count 3.53 M/mm3 (4.2-5.4); White Blood Count 12.7 K/mm3 (4.5-10.0)
[2021-02-25 07:50] VITALS: BP 95/49; PULSE 77; RESP 18; TEMP 37.2; O2SAT 96
[2021-02-25 08:00] VITALS: PULSE 76; RESP 18; O2SAT 98
--- NOTE | 2021-02-25 08:05 | PM.OBPNVD ---
OB - PN: Subj Subjective Date/time seen: 02/25/21 08:05 Patient comments: no complaints, pain well controlled, tolerating diet and flatus present baby status: doing well OB - PN: Obj Data Labs CBC & Chem 7: 02/25/21 04:20 Labs: Laboratory Results - last 24 hr 02/24/21 02/24/21 02/24/21 10:55 11:01 11:01 WBC 10.3 H RBC 3.63 L Hgb 11.3 L Hct 32.8 L MCV 90.4 MCH 31.1 MCHC 34.5 RDW 12.9 Plt Count 159 MPV 9.5 Immature Gran % (Auto) 0.7 H Neut % (Auto) 66.3 Lymph % (Auto) 20.6 [place] % (Auto) 11.0 H Eos % (Auto) 1.1 Baso % (Auto) 0.3 Lymph # (Auto) 2.13 [place] # (Auto) 1.1 H Eos # (Auto) 0.1 Baso # (Auto) 0.0 Abs Immat Gran (auto) 0.07 H Absolute Neuts (auto) 6.9 H Absolute Nucleated RBC 0.0 Nucleated RBC % 0.0 POC Capillary Glucose 83 RPR Non-reactive Blood Type Antibody Screen Antibody Identification Antigen Identification BOOM, IgG Interpret BOOM, Poly Interpret BOOM, Complement Interp Screen Baby's Blood Type Baby's BOOM Doses of RhIg Required 02/24/21 02/24/21 02/24/21 11:01 13:27 17:25 WBC RBC Hgb Hct MCV MCH MCHC RDW Plt Count MPV Immature Gran % (Auto) Neut % (Auto) Lymph % (Auto) [place] % (Auto) Eos % (Auto) Baso % (Auto) Lymph # (Auto) [place] # (Auto) Eos # (Auto) Baso # (Auto) Abs Immat Gran (auto) Absolute Neuts (auto) Absolute Nucleated RBC Nucleated RBC % POC Capillary Glucose 75 67 RPR Blood Type O Negative Antibody Screen Positive Antibody Identification Passive Due to RH Imm Glob Antigen Identification Cancelled BOOM, IgG Interpret Not Performed BOOM, Poly Interpret Negative BOOM, Complement Interp Not Performed Screen Baby's Blood Type Baby's BOOM Doses of RhIg Required 02/24/21 02/25/21 02/25/21 21:14 04:20 04:20 WBC 12.7 H RBC 3.53 L Hgb 10.9 L Hct 31.9 L MCV 90.4 MCH 30.9 MCHC 34.2 RDW 13.0 Plt Count 174 MPV 10.1 Immature Gran % (Auto) 0.5 Neut % (Auto) 72.2 Lymph % (Auto) 15.3 L [place] % (Auto) 10.9 H Eos % (Auto) 0.9 Baso % (Auto) 0.2 Lymph # (Auto) 1.94 [place] # (Auto) 1.4 H Eos # (Auto) 0.1 Baso # (Auto) 0.0 Abs Immat Gran (auto) 0.06 H Absolute Neuts (auto) 9.2 H Absolute Nucleated RBC 0.0 Nucleated RBC % 0.0 POC Capillary Glucose 187 H RPR Blood Type O Negative Antibody Screen Negative Antibody Identification Antigen Identification BOOM, IgG Interpret BOOM, Poly Interpret BOOM, Complement Interp Screen Negative Baby's Blood Type O pos Baby's BOOM Negative Doses of RhIg Required 1 OB - PN A/P Plan day: 1 Plan: routine care Time Spent With Patient Time: Total time spent is greater than 50% in coordination of care (as documented) at patient's floor/unit and/or counseling patient: Time with patient: less than 15 minutes Review of Systems Review of Systems: All systems reviewed & are unremarkable except as noted in HPI and below Exam Narrative: Fundus firm. Vaginal flow controlled. Incision dry and intact. Negative homans. No redness, warmth, or pain of lower ext. Const: General: comfortable Chest: Breast/axilla inspection: normal inspection of the breasts Resp: Effort & Inspection: normal respiratory effort Auscultation: clear to auscultation bilaterally Cardio: Rate: regular rate GI: GI Palp: Yes Soft to palpation Psych: Appearance: grossly normal Affect: normal affect Attitude: cooperative Thought content: Yes Normal thought content present Judgement: Good judgement present (Psych)
[2021-02-25] MEDS: MULTIVIT/MIN/PREN/FOL AC/IRON TABLET 1 TAB PO (08:58)
[2021-02-25 09:03] LABS: Glucose Point of Care 61 mg/dl (65-105)
--- NOTE | 2021-02-25 09:15 | PC.NURSE ---
Consult with pt., mother is pumping due to infant transfer. Mother reports pumping without difficulties or discomfort. Reviewed breast pump care and usage, pumping schedule, nipple care, and collection and storage of breast milk. Encouraged [id number] when infant is able, breast massage and manual expression to stimulate supply. Requested mother call out next feeding to assess flange size. Nipple care reviewed of lanolin before pumping, warm compresses/massage a few minutes before. Discussed colostrum vs milk supply and mother may not see more than a few drops the first few days, milk should transition in by day 3 and she may see more volume pumped per session.
[2021-02-25 10:23] LABS: Glucose Point of Care 114 mg/dl (65-105)
[2021-02-25] MEDS: HYDROcodone/acetaminophen (*CRX) 5-325 MG TABLET 1 TAB PO ×3 (10:33→21:07)
[2021-02-25] MEDS: SIMETHICONE 80 MG TAB.CHEW PO ×4 (10:36→21:07)
[2021-02-25 11:55] VITALS: BP 103/61; PULSE 76; RESP 18; TEMP 37.2; O2SAT 98
[2021-02-25] MEDS: RHO(D) IMMUNE GLOBULIN 300 MCG/2 ML SYRINGE IM (12:37)
--- NOTE | 2021-02-25 13:46 | WPDANLDNPN2 ---
Anes-Prog Note L&D-Neuraxial Date/Time: 02/25/21 13:46 Neuraxial medications: intrathecal PF morphine Opiod-related complaints: none Patient feedback: Patient satisfied with post-operative pain management.
--- NOTE | 2021-02-25 13:47 | WPDANLDPN2 ---
Anes-Prog Note L&D Date/Time: 02/25/21 13:47 Comfortable throughout: section Neuraxial method: spinal Epidural/Spinal procedure site: clean & non-tender Neuro status: Neuro function grossly intact. Cardiovascular status: normal Respiratory status: normal Airway patency: baseline Mental status: baseline Post-Op hydration status: normal Vital Signs: Last Vital Signs Temp 37.2 C 02/25/21 11:55 Pulse 76 02/25/21 11:55 Resp 18 02/25/21 11:55 BP 103/61 02/25/21 11:55 Pulse Ox 98 02/25/21 11:55 Pain score (VAS): 2 I/O: Intake & Output 02/24/21 02/25/21 02/25/21 23:59 07:59 15:59 Intake Total 200 1200 1240 Output Total 200 2250 900 Balance 0 -1050 340 Post-procedural complaints: none Patient feedback: Patient satisfied with anesthetic care.
[2021-02-25 15:17] LABS: Glucose Point of Care 149 mg/dl (65-105)
[2021-02-25 19:51] LABS: Glucose Point of Care 196 mg/dl (65-105)
[2021-02-25 20:00] VITALS: BP 114/70; PULSE 107; RESP 18; TEMP 36.8
[2021-02-25 21:50] LABS: Glucose Point of Care 158 mg/dl (65-105)
[2021-02-26] MEDS: HYDROcodone/acetaminophen (*CRX) 5-325 MG TABLET 1 TAB PO ×2 (01:40→07:45)
--- NOTE | 2021-02-26 04:20 | PM.OBPNVD ---
OB - PN: Subj Subjective Date/time seen: 02/26/21 04:20 Patient comments: no complaints, pain well controlled, tolerating diet and flatus present [place] baby status: doing well OB - PN: Obj Data Labs CBC & Chem 7: 02/25/21 04:20 Labs: Laboratory Results - last 24 hr 02/25/21 02/25/21 02/25/21 04:20 04:20 08:56 WBC 12.7 H RBC 3.53 L Hgb 10.9 L Hct 31.9 L MCV 90.4 MCH 30.9 MCHC 34.2 RDW 13.0 Plt Count 174 MPV 10.1 Immature Gran % (Auto) 0.5 Neut % (Auto) 72.2 Lymph % (Auto) 15.3 L [place] % (Auto) 10.9 H Eos % (Auto) 0.9 Baso % (Auto) 0.2 Lymph # (Auto) 1.94 [place] # (Auto) 1.4 H Eos # (Auto) 0.1 Baso # (Auto) 0.0 Abs Immat Gran (auto) 0.06 H Absolute Neuts (auto) 9.2 H Absolute Nucleated RBC 0.0 Nucleated RBC % 0.0 POC Capillary Glucose 61 L Blood Type O Negative Antibody Screen Negative Screen Negative Baby's Blood Type O pos Baby's BOOM Negative Doses of RhIg Required 1 02/25/21 02/25/21 02/25/21 10:17 15:13 19:44 WBC RBC Hgb Hct MCV MCH MCHC RDW Plt Count MPV Immature Gran % (Auto) Neut % (Auto) Lymph % (Auto) [place] % (Auto) Eos % (Auto) Baso % (Auto) Lymph # (Auto) [place] # (Auto) Eos # (Auto) Baso # (Auto) Abs Immat Gran (auto) Absolute Neuts (auto) Absolute Nucleated RBC Nucleated RBC % POC Capillary Glucose 114 H 149 H 196 H Blood Type Antibody Screen Screen Baby's Blood Type Baby's BOOM Doses of RhIg Required 02/25/21 21:47 WBC RBC Hgb Hct MCV MCH MCHC RDW Plt Count MPV Immature Gran % (Auto) Neut % (Auto) Lymph % (Auto) [place] % (Auto) Eos % (Auto) Baso % (Auto) Lymph # (Auto) [place] # (Auto) Eos # (Auto) Baso # (Auto) Abs Immat Gran (auto) Absolute Neuts (auto) Absolute Nucleated RBC Nucleated RBC % POC Capillary Glucose 158 H Blood Type Antibody Screen Screen Baby's Blood Type Baby's BOOM Doses of RhIg Required OB - PN A/P Plan day: 2 Plan: routine care and discharge home (Follow up in 1 week) Time Spent With Patient Time: Total time spent is greater than 50% in coordination of care (as documented) at patient's floor/unit and/or counseling patient: Time with patient: less than 15 minutes Review of Systems Review of Systems: All systems reviewed & are unremarkable except as noted in HPI and below Exam Narrative: Fundus firm. Vaginal flow controlled. Incision dry and intact. Negative homans. No redness, warmth, or pain of lower ext. Const: General: comfortable Chest: Breast/axilla inspection: normal inspection of the breasts Resp: Effort & Inspection: normal respiratory effort Auscultation: clear to auscultation bilaterally Cardio: Rate: regular rate GI: GI Palp: Yes Soft to palpation Psych: Appearance: grossly normal Affect: normal affect Attitude: cooperative Thought content: Yes Normal thought content present Judgement: Good judgement present (Psych)
[2021-02-26] MEDS: DOCUSATE SODIUM 100 MG CAPSULE PO (07:45)
[2021-02-26] MEDS: IBUPROFEN 600 MG TABLET PO (07:45)
[2021-02-26 08:10] VITALS: BP 127/93; PULSE 90; RESP 16; TEMP 36.6; O2SAT 100
--- NOTE | 2021-02-26 09:45 | PC.NURSE ---
Consult with pt., mother reports she began having discomfort with pumping during the night. Assessed patient for correct flange size, placement and draw. Mother had pump up to highest draw believing it would assist with milk supply. Set draw to 3 for her comfort, reviewing this will not assist increasing supply. Reviewed breast pump care and usage, pumping schedule, nipple care, and collection and storage of breast milk. Encouraged [id number], breast massage and manual expression to stimulate supply. Patient verbalizes and demonstrates understanding of instructions. Discussed colostrum vs milk supply and mother may not see more than a few drops the first few days, milk should transition in by day 3 and she may see more volume pumped per session. Reviewed transition to breast milk, signs of adequate intake, and engorgement/relief. Reviewed regular medications mother is taking. Information provided per Stephenie. Reviewed community resources on the [facility] website and in the Mom/Baby guide. Information on outpatient services provided, reviewed mother may return her if she chooses for assistance if needed. Mother has no further questions at this time.
[2021-02-26 10:22] LABS: Glucose Point of Care 195 mg/dl (65-105)
[2021-02-26 10:22] LABS: Glucose Point of Care 209 mg/dl (65-105)
--- NOTE | 2021-03-05 07:29 | PM.OBDSVD ---
DS: Admitting Diagnosis Discharge Date 02/26/21 Admitting Diagnosis term IUP, LGA, DM1 DS: Discharge Diagnosis Discharge Diagnosis (1) Breech presentation: Code(s): O32.1XX0 - Maternal care for breech presentation, not applicable or unspecified Status: Acute (2) macrosomia affecting management of mother, antepartum: Code(s): O36.60X0 - Maternal care for excessive growth, unspecified trimester, not applicable or unspecified Status: Acute (3) Type 1 diabetes mellitus: Code(s): E10.9 - Type 1 diabetes mellitus without complications Status: Acute (4) delivery delivered: Code(s): O82 - Encounter for delivery without indication Status: Acute OB - DS: Summary Hospital Course Hospital Course: Pt had an uncomplicated primary CS and course. OB Procedures : NST and Ultrasound OB Procedures Intrapartum: OB Procedures: : None Peripartum Data Delivery Method: Section Procedures: Procedures Operation Date: 02/24/21 12:00 Actual Procedure Side Surgeon p Primary Section Not Applicable Yolanda Carpio MD complications: none Status at Discharge Functional status at discharge: independent ambulation Time Spent with Patient Time attestation: Total time spent providing and/or coordinating discharge services: Exam Narrative: NAD abdomen soft, appropriately tender, incision CDI Discharge Plan Discharge Attending physician on discharge: Yolanda Carpio Consulting providers: Ruth Ortez ; Jayme Gomes Discharging Clinician: Ruth Ortez Anticipated Discharge Date/Time: 02/25/21 07:31 Patient Disposition: Home, Self-Care Activity: may drive after 2 weeks and pelvic rest Diet: diabetic Discharge Instructions: Education: Mom and Baby Guide Given to: Mother Follow-Up: Call your delivering provider's office for an appointment to be seen in: 1 Week Mom should come to the [facility] for the follow-up appointment. Appointment Date/Time: March 01, 2021 at 11:00 am What to expect at your follow-up visit: Physical Assessment Call [phone] if you are unable to keep your appointment time. BREAST CARE: * Wear a snug supportive bra. * For engorgement discomfort: Breast Feeding: * Apply warm moist washcloths * Express milk as needed to relieve engorgement * Wear loose clothing Bottle Feeding: * May apply ice packs * For sore nipples: * Identify correct latch-on * Apply warm moist washcloths before and after nursing * Air dry nipples after nursing * May apply Lansinoh cream to nipples ABDOMINAL INCISION: (if applicable) * Allow incision to air dry * Do NOT use lotions for powders on your incision * When showering, allow soap and water to run over the incision, but do not wash incision EPISIOTOMY/PERINEAL CARE: * Until bleeding stops, use your brit bottle after urinating * Change your pad frequently throughout the day * You may take sitz baths several times a day (fill your bathtub with warm water and soak for 20 minutes.) Do NOT bathe in the water * No tub baths until seen by your physician - You may shower ACTIVITY: * Rest as much as possible. * Do not exercise or lift anything heavier than your baby (such as laundry or other children.) * Avoid stairs or driving as much as possible. * Do not put anything into the vagina. No douching, tampons, or sexual activity until seen by physician. NOTIFY PHYSICIAN IF YOU HAVE ANY QUESTIONS OR IF ANY OF THE FOLLOWING SYMPTOMS OCCUR: * If your episiotomy or incision becomes red, swollen, or more painful than what you have experienced in the hospital. * If your vaginal bleeding becomes foul smelling. * If your vaginal bleeding becomes more heavy than a period or if your bleeding changes from p
== END 2021-02-26 11:55 | disposition home or self-care (01) | DRG 788 ==
LOC: ANHLDR 10:09 → ANHOB2 16:15
PROVIDERS: Admitting Provider Obstetrics & Gynecology; PCP Pediatrics; Visit Provider Obstetrics & Gynecology
PROC: 10D00Z1 Extraction of Products of Conception, Low, Open Approach (ICD-10-PCS; CPT 59514; principal; 2021-02-24 12:00)
DX: O24.02 Pre-existing type 1 diabetes mellitus, in childbirth (principal); E10.65 Type 1 diabetes mellitus with hyperglycemia; O32.1XX0 Maternal care for breech presentation, not applicable or unspecified; O36.63X0 Maternal care for excessive fetal growth, third trimester, not applicable or unspecified; O99.824 Streptococcus B carrier state complicating childbirth; O40.3XX0 Polyhydramnios, third trimester, not applicable or unspecified; Z3A.37 37 weeks gestation of pregnancy; Z37.0 Single live birth; Z79.4 Long term (current) use of insulin; Z96.41 Presence of insulin pump (external) (internal)
CPT/HCPCS: 36415; 82948; 85025; 85461; 86592; 86850; 86880; 86900; 86901; 88307; 90384; A9270; J0131; J0690; J2270; J2274; J2405; J2590; J2790; J3480; J7120

== ENCOUNTER 2021-05-06 07:42 | Emergency (ER) | payer BC, SELFPAY ==
[2021-05-06 07:46] VITALS: BP 120/68; PULSE 115; RESP 20; TEMP 36.9; O2SAT 98
[2021-05-06 07:49] VITALS: BP 120/68; PULSE 123; RESP 24; O2SAT 98
[2021-05-06 07:57] LABS: Glucose Point of Care 281 mg/dl (65-105)
--- NOTE | 2021-05-06 08:06 | ED.ABDPAIN ---
HPI - Abdominal Pain General Chief Complaint: Abdominal Pain Stated Complaint: Flank Pain Time Seen by Provider: 05/06/21 07:49 History of Present Illness HPI narrative: Patient is a 20-year-old female who presents ER with left-sided back pain and left upper quadrant abdominal pain. Back pain aching and cramping for the last 3 days. Began radiating to the left upper quadrant today. No urinary frequency urgency or dysuria. No discoloration of urine. Denies fevers or chills or sweats. No nausea or vomiting. Patient denies any GI related symptoms including diarrhea or constipation. She has found no alleviating factors for discomfort. Additionally she is found no aggravating factors. Related Data Home Medications Medication Instructions Recorded Confirmed subcutaneous insulin pump [Omnipod 02/24/21 02/24/21 Insulin Management] hydrocodone-acetaminophen 05/06/21 sertraline mg 05/06/21 Allergies Allergy/AdvReac Type Severity Reaction Status Date / Time No Known Allergies Allergy Verified 05/06/21 07:49 Review of Systems Review of Systems: All systems reviewed & are unremarkable except as noted in HPI and below Constitutional: Constitutional: Denies chills, Denies fever(s) and Denies weakness Cardiovascular: Cardiovascular: Denies chest pain, Denies rapid heart rate and Denies radiating jaw, neck or arm pain Respiratory: Respiratory: Denies cough and Denies dyspnea Gastrointestinal: Gastrointestinal: Reports abdominal pain, Denies constipation, Denies diarrhea, Denies nausea and Denies vomiting Genitourinary: Genitourinary: Denies hematuria, Denies nocturia, Denies dysuria, Reports flank pain and Denies urinary incontinence Musculoskeletal: Musculoskeletal: Reports back pain, Denies arthralgias and Denies joint swelling [facility] Past Medical History Medical History (Updated 05/06/21 @ 09:34 by Cj Sheets MD) Bulimia Diabetes mellitus, new onset Surgical History Surgical History (Updated 02/26/21 @ 04:25 by Ruth Ortez CNM) History of bilateral breast reduction surgery Status post myringotomy with insertion of tube Family History Family History Grandparent Diabetes mellitus Father Asthma Sibling Anxiety Social History Social History (Updated 04/08/20 @ 23:20 by Isis Blackwell PA-C) Social History: The patient lives in [place], [place]. 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 Lifelong nonsmoker. No alcohol or illicit substance abuse. Her parents Irish and Torey are her surrogate decision makers and she wishes to be a full code. Smoking status: Never smoker Second hand tobacco smoke exposure: No Substance use: never Spiritual care concerns: No Exam Narrative: GENERAL: Well-appearing, well-nourished, and in no acute distress. HEAD: Normocephalic, atraumatic. CHEST: Clear to auscultation. No respiratory distress. HEART: Regular rate and rhythm. Normal peripheral pulses. ABDOMEN: Soft, on discomfort in the left upper quadrant without guarding, nondistended. Back: No reproducible midline tenderness of the T/L-spine. There is reproducible paraspinal muscular tenderness at the level of L2 without CVA tenderness. The musculature in this region seems tight but there is no knotted spasm. EXTREMITIES: Normal range of motion. No edema. SKIN: Warm, dry, no rash. NEURO: Alert and oriented x3. PSYCH: Normal mood and affect. Course Course Emergency Course: Patient resting comfortably. Informed of results. Will give IV ceftriaxone for pyelonephritis. Discussed treatment plan with patient including discharge with supportive medications. Patient verbalized understanding and feels comfortable with plan. Vital Signs Vital signs: Vital Signs Temperature 98.5 F 05/06/21 07:46 Pulse Rate 115 H 05/06/21 07:46 Respiratory Rate 20 05/06/21 07:46 Blood Pressure 120/68 05/06/21 0
[2021-05-06] MEDS: KETOROLAC 30 MG/ML VIAL (*BKC) IV PUSH (08:07)
[2021-05-06 08:08] LABS: Basophils Percent Auto 0.2 % (0.2-1.2); Eosinophils Percent Auto 0.1 % (0-4.4); Hematocrit 39.7 % (37.0-47.0); Hemoglobin 13.2 g/dL (12.0-15.0); Immature Granulocyte Absolute 0.05 K/mm3 (0.00-0.031); Immature Granulocyte Percent A 0.3 % (0-0.5); Lymphocytes Absolute Auto 1.36 K/mm3 (0.9-3.2); Lymphocytes Percent Auto 9.2 % (18.3-44.2); Mean Corpuscular HGB Conc 33.2 g/dl (32-36); Mean Corpuscular Hemoglobin 30.1 pg (26-34); Mean Corpuscular Volume 90.6 fl (80-100); Mean Platelet Volume 10.3 fl (7.4-10.4); Monocytes Absolute Auto 1.8 K/mm3 (0.1-0.6); Monocytes Percent Auto 12.5 % (2.6-8.5); Neutrophils Absolute Auto 11.4 K/mm3 (1.3-6.7); Neutrophils Percent Auto 77.7 % (45.5-73.1); Platelet Count Result 257 k/mm3 (150-375); Red Blood Count 4.38 M/mm3 (4.2-5.4); Red Cell Distribution Width 12.9 % (11.5-14.5); White Blood Count 14.7 K/mm3 (4.5-10.0)
[2021-05-06] MEDS: SODIUM CHLORIDE 0.9% IV 1,000 ML 999 ML IV CONT (08:08)
[2021-05-06 08:23] LABS: Lipase 40 U/L (23-300)
[2021-05-06 08:59] LABS: Add Urine Microscopic? YES; Appearance Urine Cloudy (Clear); Bacteria Urine 4+ /hpf; Bilirubin Urine Negative (Negative); Blood Urine 3+ (Negative); Color Urine Yellow (Yellow); Glucose Urine UA 1+ mg/dL (Negative); Ketones Urine Trace mg/dL (Negative); Leukocyte Esterase Ur 3+ LEU/UL (Negative); Mucus Urine Rare /lpf; Nitrate Urine Negative (Negative); Protein Urine 1+ mg/dL (Negative); Specific Grav Ur 1.018 (1.001-1.035); Squamous Epithelial Cell Urine Few /hpf (Few); Urobilinogen Urine Negative mg/dL (<2.0); WBC Urine >75 /hpf
[2021-05-06 09:10] LABS: Alanine Aminotransferase 13 U/L (4-35); Albumin Level 3.8 g/dL (3.5-5.1); Alkaline Phosphatase 100 U/L (38-126); Anion Gap 7 mmol/L (8-16); Aspartate Amino Transferase 18 U/L (14-36); Bilirubin,Total 0.4 mg/dL (0.2-1.3); Blood Urea Nitrogen 11 mg/dL (7-17); Calcium 7.9 mg/dL (8.4-10.2); Carbon Dioxide 26 mmol/L (22-30); Chloride 99 mmol/L (98-107); Estimated CRCL calculation 124 ml/min; Estimated Glomerular Filt Rate > 60; Glucose 257 mg/dL (65-110); Sodium 132 mmol/L (137-145)
[2021-05-06 09:13] VITALS: BP 115/61; PULSE 90; RESP 20; O2SAT 98
[2021-05-06 09:15] VITALS: O2SAT 97
[2021-05-06 09:41] VITALS: BP 113/50; PULSE 85; RESP 14; O2SAT 98
== END 2021-05-06 09:58 | disposition home or self-care (01) ==
PROVIDERS: General Practice; Emergency Provider Emergency Medicine; PCP Pediatrics
DX: N12 Tubulo-interstitial nephritis, not specified as acute or chronic (principal); Z79.4 Long term (current) use of insulin; E11.9 Type 2 diabetes mellitus without complications
CPT/HCPCS: 36415; 80053; 81001; 81025; 82948; 83690; 85025; 87077; 87086; 87186; 96361; 96374; 96375; 99284; J0696; J1885; J7030

== ENCOUNTER 2021-06-27 12:03 | Emergency (ER) | payer BC, SELFPAY ==
--- NOTE | 2021-06-27 12:17 | ED.GENADULT ---
HPI - General Adult General Chief complaint: Urogenital-Female Stated complaint: lt flank pain Time Seen by Provider: 06/27/21 12:18 Source: patient Mode of arrival: ambulatory Limitations: no limitations History of Present Illness HPI narrative: 20-year-old female patient presents to the [facility] with complaints of left flank pain for the past 2 days. Patient does have history of type 1 diabetes and states that she does get kidney infections often. Patient states her last kidney infection was about 2 months ago. Denies any pain with urination but states she has noticed a foul odor, increase in frequency. Denies Related Data Home Medications Medication Instructions Recorded Confirmed subcutaneous insulin pump [Omnipod 02/24/21 02/24/21 Insulin Management] sertraline 50 mg PO DAILY 05/06/21 blood-glucose sensor [Dexcom G6 06/27/21 06/27/21 Sensor] blood-glucose transmitter [Dexcom 06/27/21 06/27/21 G6 Transmitter] insulin aspart U-100 [Novolog 06/27/21 U-100 Insulin aspart] norgestimate-ethinyl estradiol 1 tablet PO DAILY 06/27/21 06/27/21 [Tri Femynor] Allergies Allergy/AdvReac Type Severity Reaction Status Date / Time No Known Allergies Allergy Verified 06/27/21 12:41 Review of Systems Review of Systems: CONSTITUTIONAL: Denies fever, chills, or sweats. EYES: Denies visual changes, redness, or discharge. ENT: Denies rhinorrhea, congestion, sore throat, or otalgia. CARDIOVASCULAR: Denies chest pain, palpitations, or edema. RESPIRATORY: Denies cough or dyspnea. GASTROINTESTINAL: Denies abdominal pain, nausea, vomiting, or diarrhea. GENITOURINARY: Positive dysuria or hematuria. SKIN: Denies rash or itching. MUSCULOSKELETAL: Positive left flank back pain, denies joint pain, or myalgia. NEUROLOGIC: Denies headache, numbness, or weakness. PSYCHIATRIC: Denies anxiety or depression. [facility] Past Medical History Medical History Bulimia Diabetes mellitus, new onset Surgical History Surgical History History of bilateral breast reduction surgery Status post myringotomy with insertion of tube Family History Family History Grandparent Diabetes mellitus Father Asthma Sibling Anxiety Social History Social History Social History: The patient lives in [place], [place]. 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 No alcohol or illicit substance abuse. Her parents Irish and Torey are her surrogate decision makers and she wishes to be a full code. Smoking status: Never smoker Second hand tobacco smoke exposure: No Substance use: never Spiritual care concerns: No Exam Narrative: GENERAL: Well-appearing, well-nourished, and in no acute distress. HEAD: Normocephalic, atraumatic. EYES: PERRLA and EOMI. ENT: Nares clear, no rhinorrhea or epistaxis. Mucous membranes moist. NECK: Supple. No lymphadenopathy CHEST: Clear to auscultation. No respiratory distress. HEART: Regular rate and rhythm. No murmur heard. Normal peripheral pulses. ABDOMEN: Soft, nontender, nondistended, normal active bowel sounds. No CVA tenderness on percussion EXTREMITIES: Normal range of motion. No edema. SKIN: Warm, dry, no rash. NEURO: No focal deficits. Alert and oriented x3. Course Course Level of Care: Express Care Visit Vital Signs Vital signs: Vital Signs Temperature 36.9 C 06/27/21 12:21 Pulse Rate 108 H 06/27/21 12:21 Respiratory Rate 18 06/27/21 12:21 Blood Pressure 127/70 06/27/21 12:21 Pulse Oximetry 99 06/27/21 12:21 Temperature 36.9 C 06/27/21 12:21 Pulse Rate 108 H 06/27/21 12:21 Respiratory Rate 18 06/27/21 12:21 Blood Pressure 127/70 06/27/21 12:21 Pulse Oximetry 99 06/27/21 12:21
[2021-06-27 12:21] VITALS: BP 127/70; PULSE 108; RESP 18; TEMP 36.9; O2SAT 99
[2021-06-27 13:09] LABS: Glucose Point of Care 169 mg/dl (65-105)
== END 2021-06-27 13:07 | disposition home or self-care (01) ==
PROVIDERS: Emergency Provider Nurse Practitioner Family
DX: N30.01 Acute cystitis with hematuria (principal); E10.9 Type 1 diabetes mellitus without complications; Z79.4 Long term (current) use of insulin
CPT/HCPCS: 81003; 81025; 82948; 87077; 87086; 87186; 99213; G0463

== ENCOUNTER 2022-01-19 05:01 | Emergency (ER) | payer BC, SELFPAY ==
[2022-01-19 05:02] VITALS: BP 148/81; PULSE 130; RESP 20; TEMP 36.1; O2SAT 98
[2022-01-19 05:15] VITALS: BP 127/71; PULSE 88; RESP 12
[2022-01-19 05:16] VITALS: BP 106/69; PULSE 96; RESP 14
--- NOTE | 2022-01-19 05:24 | ED.GENADULT ---
HPI - General Adult General Chief complaint: Nausea/Vomiting/Diarrhea Stated complaint: N/V/D X8 HOURS Time Seen by Provider: 01/19/22 05:15 History of Present Illness HPI narrative: this is a 21-year-old female presenting ED with nausea vomiting diarrhea. Symptoms started at 9:00 p.m. last night. She has had 7 8 episodes of nausea and vomiting every time she vomits she is also having diarrhea. patient has some epigastric discomfort. Patient has a sick child at home who has similar symptoms. Patient has history of type 1 diabetes but has insulin pump. Patient has had chills but no fever, no chest pain no difficulty breathing, no urinary symptoms. Related Data Home Medications Medication Instructions Recorded Confirmed subcutaneous insulin pump (Omnipod 02/24/21 10/14/21 Insulin Management) sertraline 50 mg tablet 50 mg PO DAILY 05/06/21 10/14/21 blood-glucose sensor (Dexcom G6 06/27/21 10/14/21 Sensor device) blood-glucose transmitter (Dexcom 06/27/21 10/14/21 G6 Transmitter device) insulin aspart U-100 100 unit/mL 06/27/21 10/14/21 subcutaneous solution (Novolog U-100 Insulin aspart) norgestimate-ethinyl estradiol 1 tablet PO DAILY 06/27/21 10/14/21 0.18 mg/0.215mg/0.25mg-35 mcg(28)tablet (Tri Femynor) Allergies Allergy/AdvReac Type Severity Reaction Status Date / Time No Known Allergies Allergy Verified 12/22/21 09:55 Review of Systems Review of Systems: CONSTITUTIONAL: Denies night sweats. EYES: No eye pain ENT: Denies rhinorrhea CARDIOVASCULAR: Denies palpitations RESPIRATORY: Denies hemoptysis GASTROINTESTINAL: Denies hematemesis GENITOURINARY: Denies hematuria. SKIN: Denies rash MUSCULOSKELETAL: Denies myalgia. NEUROLOGIC: Denies weakness. PSYCHIATRIC: Denies delusions PMF[facility] Past Medical History Medical History (Updated 01/19/22 @ 06:27 by Ever Atkinson MD) Bulimia Diabetes mellitus, new onset Ingrown right big toenail Migraine headache with aura Surgical History Surgical History History of bilateral breast reduction surgery Status post myringotomy with insertion of tube Family History Family History Grandparent Diabetes mellitus Father Asthma Sibling Anxiety Social History Social History Social History: The patient lives in [place], [place]. 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 No alcohol or illicit substance abuse. Her parents Irish and Torey are her surrogate decision makers and she wishes to be a full code. Smoking status: Never smoker Second hand tobacco smoke exposure: No Substance use: never Spiritual care concerns: No Exam Narrative: APPEARANCE: Patient is lying in bed, she appears uncomfortable Head: atraumatic. EYES: EOMI, NOSE: Atraumatic NECK: Trachea midline RESPIRATORY: No increased rate of breathing, clear to auscultation CARDIOVASCULAR: tachycardic ABDOMINAL: mild tenderness to palpation in the epigastric area but no guarding or rebound MUSCULOSKELETAl: No obvious deformities NEURO: Alert. Moving 4/4 extremities SKIN:: Warm, dry. Normal color PSYCHIATRIC: Normal affect Course Vital Signs Vital signs: Vital Signs Temperature 97.0 F L 01/19/22 05:02 Pulse Rate 130 H 01/19/22 05:02 Respiratory Rate 20 01/19/22 05:02 Blood Pressure 148/81 H 01/19/22 05:02 Pulse Oximetry 98 01/19/22 05:02 Oxygen Delivery Room Air 01/19/22 05:02 Temperature 97.0 F L 01/19/22 05:02 Pulse Rate 86 01/19/22 05:46 Respiratory Rate 24 H 01/19/22 05:46 Blood Pressure 120/67 01/19/22 05:46 Pulse Oximetry 98 01/19/22 05:02 Oxygen Delivery Room Air 01/19/22 05:02 Medical Decision Making MDM Narrative Medical decision making narrative: this is a 21-year-old female presenti
[2022-01-19 05:31] VITALS: BP 111/72; PULSE 105; RESP 16
[2022-01-19] MEDS: ONDANSETRON INJ 4 MG/2 ML VIAL IV PUSH (05:34)
[2022-01-19] MEDS: FAMOTIDINE 20 MG/2 ML VIAL IV PUSH (05:34)
[2022-01-19] MEDS: SODIUM CHLORIDE 0.9% IV 2,000 ML 999 ML IV CONT (05:35)
[2022-01-19 05:38] LABS: Basophils Percent Auto 0.2 % (0.2-1.2); Eosinophils Percent Auto 0.3 % (0-4.4); Hematocrit 45.2 % (37.0-47.0); Hemoglobin 15.2 g/dL (12.0-15.0); Immature Granulocyte Absolute 0.05 K/mm3 (0.00-0.031); Immature Granulocyte Percent A 0.3 % (0-0.5); Lymphocytes Absolute Auto 0.65 K/mm3 (0.9-3.2); Lymphocytes Percent Auto 4.4 % (18.3-44.2); Mean Corpuscular HGB Conc 33.6 g/dl (32-36); Mean Corpuscular Hemoglobin 28.6 pg (26-34); Mean Corpuscular Volume 85.1 fl (80-100); Monocytes Percent Auto 6.6 % (2.6-8.5); Neutrophils Percent Auto 88.2 % (45.5-73.1); Platelet Count Result 344 k/mm3 (150-375); Red Blood Count 5.31 M/mm3 (4.2-5.4); Red Cell Distribution Width 12.9 % (11.5-14.5); White Blood Count 14.8 K/mm3 (4.5-10.0)
[2022-01-19 05:46] VITALS: BP 120/67; PULSE 86; RESP 24
[2022-01-19 05:52] LABS: Alanine Aminotransferase 25 U/L (6-35); Alkaline Phosphatase 137 U/L (38-126); Anion Gap 15 mmol/L (8-16); Aspartate Amino Transferase 24 U/L (14-36); Bilirubin,Total 0.6 mg/dL (0.2-1.3); Blood Urea Nitrogen 17 mg/dL (7-17); Calcium 9.8 mg/dL (8.4-10.2); Carbon Dioxide 21 mmol/L (22-30); Chloride 102 mmol/L (98-107); Estimated CRCL calculation 129 ml/min; Estimated Glomerular Filt Rate > 60; Glucose 334 mg/dL (65-110); Magnesium 1.5 mg/dL (1.6-2.3); Potassium 4.5 mmol/L (3.4-5.0); Sodium 138 mmol/L (137-145)
[2022-01-19 05:56] LABS: Beta-Hydroxybutyrate/Acetoacetate 0.76 mmol/L (0.02-0.27)
[2022-01-19] MEDS: MAG HYDROX/AL HYDROX/SIMETH 30 ML UDC PO (06:10)
[2022-01-19 06:14] LABS: Influenza A QL RT-PCR Negative (Negative); Influenza B QL RT-PCR Negative (Negative); SARS-CoV-2 RNA PCR Negative
[2022-01-19 06:39] VITALS: BP 128/63; PULSE 94; RESP 18; O2SAT 98
== END 2022-01-19 06:50 | disposition home or self-care (01) ==
PROVIDERS: Emergency Provider Emergency Medicine; PCP Family Medicine
DX: K52.9 Noninfective gastroenteritis and colitis, unspecified (principal); E11.65 Type 2 diabetes mellitus with hyperglycemia; D72.829 Elevated white blood cell count, unspecified; Z20.822 Contact with and (suspected) exposure to COVID-19; Z79.4 Long term (current) use of insulin
CPT/HCPCS: 36415; 80053; 82010; 83735; 85025; 87636; 96361; 96374; 96375; 99284; A9270; J2405; J7030

== ENCOUNTER → 2022-08-29 15:29 | Outpatient (CLI) | payer BC, SELFPAY ==
--- NOTE | ~2022-08-29 | MR_ITS ---
EXAMINATION: MR brain/brain stem wo con DATE: 08/29/2022 15:59 INDICATION: Migraine headache with aura. TECHNIQUE: Magnetic resonance imaging (MRI) of the brain and brainstem was performed without intraven ous contrast. COMPARISON: None. FINDINGS: There is no intracranial hemorrhage, acute infarction, or abnormal intracranial mass lesion . The ventricles are normal in size. The orbits are normal. There is minimal mucosal thickening in th e paranasal sinuses. The mastoid air cells are normal. IMPRESSION: 1. Normal brain. Reviewed, dictated and finalized at location A. IMPRESSION: 1. Normal brain.
== END ==
PROVIDERS: PCP Physician Assistant Medical; Visit Provider Physician Assistant Medical
DX: G43.109 Migraine with aura, not intractable, without status migrainosus (principal)
CPT/HCPCS: 70551

== ENCOUNTER 2022-10-07 10:15 | Emergency (ER) | payer BC, SELFPAY ==
[2022-10-07 10:32] VITALS: BP 118/67; PULSE 81; RESP 18; O2SAT 99
--- NOTE | 2022-10-07 11:25 | ED.WOUNDLAC ---
HPI - Wound/Laceration General Chief Complaint: Wound/Laceration Stated Complaint: spider bite Time Seen by Provider: 10/07/22 11:07 History of Present Illness HPI narrative: This is a 21-year-old female, past history of type 1 diabetes, who presents to the emergency department after sustaining a brown recluse bite on the right second toe. The patient states yesterday, she noticed a spider climbing up her leg, she brushed it off with her foot and felt the bite. She complains of 2/10 dull pain but denies fevers or chills. She is not sure of her last tetanus shot. Related Data Home Medications Medication Instructions Recorded Confirmed subcutaneous insulin pump (Omnipod 02/24/21 09/01/22 Insulin Management) sertraline 50 mg tablet 50 mg PO DAILY 05/06/21 09/01/22 blood-glucose sensor (Dexcom G6 06/27/21 09/01/22 Sensor device) blood-glucose transmitter (Dexcom 06/27/21 09/01/22 G6 Transmitter device) insulin aspart U-100 100 unit/mL 06/27/21 09/01/22 subcutaneous solution (Novolog U-100 Insulin aspart) norgestimate-ethinyl estradiol 1 tablet PO DAILY 06/27/21 09/01/22 0.18 mg/0.215mg/0.25mg-35 mcg(28)tablet (Tri Femynor) Allergies Allergy/AdvReac Type Severity Reaction Status Date / Time No Known Allergies Allergy Verified 10/07/22 10:35 Review of Systems Review of Systems: CONSTITUTIONAL: Denies fever, chills, or sweats. CARDIOVASCULAR: Denies chest pain, palpitations, or edema. RESPIRATORY: Denies cough or dyspnea. GASTROINTESTINAL: Denies abdominal pain, nausea, vomiting, or diarrhea. MUSCULOSKELETAL: Mild right second toe pain denies back pain, or myalgia. NEUROLOGIC: Denies headache, numbness, dizziness, or weakness. PSYCHIATRIC: Denies anxiety or depression. [facility] Past Medical History Medical History Bulimia Diabetes mellitus, new onset Ingrown right big toenail Migraine headache with aura Surgical History Surgical History History of bilateral breast reduction surgery Status post myringotomy with insertion of tube Family History Family History Grandparent Diabetes mellitus Father Asthma Sibling Anxiety Social History Social History Social History: The patient lives in [place], [place]. 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 Lifelong nonsmoker. No alcohol or illicit substance abuse. Her parents Irish and Torey are her surrogate decision makers and she wishes to be a full code. Smoking status: Never smoker Second hand tobacco smoke exposure: No Alcohol intake: never Substance use: never Substance use type: does not use Lack of Transportation: No Lack of Food: Never True Current Housing: I Have Housing Concerned About Future Housing: No Difficulty Paying Gas/Electric Bills: No Difficulty Paying for Meds: No Currently Unemployed: No Education: High School Diploma/GED Difficulty w/ Childcare or Family Care: No Living arrangements: with family Gender identity (if verbalized by the patient): Female Sexual Orientation (if Verbalized by the Patient): Straight or Heterosexual Spiritual care concerns: No Agree to blood products: Yes Exam Narrative: GENERAL: Well-developed, well-nourished, and in no acute distress. HEAD: Normocephalic, atraumatic. EYES: PERRLA and EOMI. CHEST: Clear to auscultation. No respiratory distress. No wheezes rales or rhonchi HEART: Regular rate and rhythm. No murmur heard. Normal peripheral pulses. ABDOMEN: Soft, nontender, nondistended, normal active bowel sounds. EXTREMITIES: Normal range of motion. No edema. SKIN: There is a 5 mm diameter area of erythema with a slightly pale center noted over the medial aspect of the distal right second toe. There
== END 2022-10-07 11:30 | disposition home or self-care (01) ==
PROVIDERS: Emergency Provider Preventive Medicine Aerospace Medicine; PCP Family Medicine
DX: T63.331A Toxic effect of venom of brown recluse spider, accidental (unintentional), initial encounter (principal); E10.9 Type 1 diabetes mellitus without complications; Z79.4 Long term (current) use of insulin
CPT/HCPCS: 99283

== ENCOUNTER 2023-08-24 14:45 | Emergency (ER) | payer BC, SELFPAY ==
[2023-08-24 15:22] VITALS: BP 139/99; PULSE 77; RESP 16; TEMP 37; O2SAT 100
[2023-08-24 15:45] LABS: Basophils Percent Auto 0.4 % (0.2-1.2); Eosinophils Absolute Auto 0.2 K/mm3 (0-0.3); Eosinophils Percent Auto 1.6 % (0-4.4); Hematocrit 40.8 % (37.0-47.0); Hemoglobin 13.9 g/dL (12.0-15.0); Immature Granulocyte Absolute 0.03 K/mm3 (0.00-0.031); Immature Granulocyte Percent A 0.3 % (0-0.5); Lymphocytes Absolute Auto 2.56 K/mm3 (0.9-3.2); Lymphocytes Percent Auto 23.8 % (18.3-44.2); Mean Corpuscular HGB Conc 34.1 g/dl (32-36); Mean Corpuscular Hemoglobin 29.3 pg (26-34); Mean Corpuscular Volume 85.9 fl (80-100); Mean Platelet Volume 10.2 fl (7.4-10.4); Monocytes Percent Auto 9.5 % (2.6-8.5); Neutrophils Absolute Auto 6.9 K/mm3 (1.3-6.7); Neutrophils Percent Auto 64.4 % (45.5-73.1); Platelet Count Result 307 k/mm3 (150-375); Red Blood Count 4.75 M/mm3 (4.2-5.4); Red Cell Distribution Width 12.1 % (11.5-14.5); White Blood Count 10.7 K/mm3 (4.5-10.0)
[2023-08-24 15:55] LABS: Alanine Aminotransferase 23 U/L (6-35); Albumin Level 4.4 g/dL (3.5-5.1); Alkaline Phosphatase 114 U/L (38-126); Anion Gap 9 mmol/L (4-12); Aspartate Amino Transferase 22 U/L (14-36); Bilirubin,Total 0.5 mg/dL (0.2-1.3); Blood Urea Nitrogen 11 mg/dL (7-17); Calcium 9.5 mg/dL (8.4-10.2); Carbon Dioxide 22 mmol/L (22-30); Chloride 99 mmol/L (98-107); Estimated CRCL calculation 144 ml/min; Estimated Glomerular Filt Rate > 60; Glucose 360 mg/dL (65-110); Magnesium 1.7 mg/dL (1.6-2.3); Phosphorus 2.5 mg/dL (2.5-4.5); Potassium 3.8 mmol/L (3.4-5.0); Sodium 130 mmol/L (137-145)
[2023-08-24 16:29] LABS: Beta-Hydroxybutyrate/Acetoacetate 0.13 mmol/L (0.02-0.27)
[2023-08-24 17:12] LABS: Appearance Urine Clear (Clear); Bacteria Urine None Seen /hpf; Bilirubin Urine Negative (Negative); Blood Urine Trace (Negative); Color Urine Yellow (Yellow); Glucose Urine UA 3+ mg/dL (Negative); Ketones Urine Negative (Negative); Leukocyte Esterase Ur Negative LEU/UL (Negative); Need Manual Microscopic Reviewed; Nitrate Urine Negative (Negative); Non Pathogenic Casts 0-2; Protein Urine Negative (Negative); RBC Urine 0-2 /hpf (0-2); Specific Grav Ur 1.016 (1.001-1.035); Squamous Epithelial Cell Urine Occasional /hpf (Few); Urobilinogen Urine 0.2 mg/dL (<2.0); WBC Urine 0-5 /hpf (0-3)
[2023-08-24 17:13] LABS: Add Urine Microscopic? YES
[2023-08-24 17:15] VITALS: BP 109/71; PULSE 55; RESP 18; O2SAT 100
[2023-08-24 17:18] LABS: Pregnancy On Board Control Positive; Urine Pregnancy Test Negative
--- NOTE | 2023-08-24 17:42 | ED.RECABL ---
HPI - Recheck/Abnormal Lab/Rx General Chief Complaint: Recheck/Abnormal Lab/Rx Stated Complaint: told she is in DKA by endo Time Seen by Provider: 08/24/23 17:00 Source: patient Mode of arrival: ambulatory Limitations: no limitations History of Present Illness HPI narrative: Patient is a 22 y/o female who presents to the ED with c/o Elevated blood sugar. Patient has a history of type 1 diabetes and uses a glucometer and insulin pump. She had a routine appointment with her blind lacer, Dr. Ashleigh Valentin today at [facility]. She states her blood sugar was in the 400s at her appointment. They ran a urine dip test and noted her to have ketonuria, then referred to ED to r/o DKA. patient reports 1 previous episode of DKA when she was 1st diagnosed with diabetes. She reports having a a GI bug last week, but states this is resolved. She currently feels fine, denies any symptoms or pain. Denies dysuria or hematuria. Denies polyuria, polydipsia. Related Data Home Medications Medication Instructions Recorded Confirmed subcutaneous insulin pump (Omnipod 02/24/21 06/28/23 Insulin Management) blood-glucose sensor (Dexcom G6 06/27/21 06/28/23 Sensor device) blood-glucose transmitter (Dexcom 06/27/21 06/28/23 G6 Transmitter device) insulin aspart U-100 100 unit/mL 06/27/21 06/28/23 subcutaneous solution (Novolog U-100 Insulin aspart) norgestimate-ethinyl estradiol 1 tablet PO DAILY 06/27/21 06/28/23 0.18 mg/0.215mg/0.25mg-35 mcg(28)tablet (Tri Femynor) Allergies Allergy/AdvReac Type Severity Reaction Status Date / Time No Known Allergies Allergy Verified 08/24/23 17:07 Review of Systems Review of Systems: CONSTITUTIONAL: Denies fever, chills, or sweats. ENT: Denies rhinorrhea, congestion, sore throat. CARDIOVASCULAR: Denies chest pain, palpitations, or edema. RESPIRATORY: Denies cough or dyspnea. GASTROINTESTINAL: Denies abdominal pain, nausea, vomiting, or diarrhea. GENITOURINARY: Denies dysuria or hematuria. NEUROLOGIC: Denies headache, dizziness, numbness, or weakness. All systems reviewed & are unremarkable except as noted in HPI and below PMFSH Past Medical History Medical History Bulimia Diabetes mellitus, new onset Ingrown right big toenail Migraine headache with aura Surgical History Surgical History History of bilateral breast reduction surgery Status post myringotomy with insertion of tube Family History Family History Grandparent Diabetes mellitus Father Asthma Sibling Anxiety Social History Social History Social History: The patient lives in [place], [place]. She is studying biology at [employer] and works at a local [employer]. Lifelong nonsmoker. No alcohol or illicit substance abuse. Her parents Irish and Torey are her surrogate decision makers and she wishes to be a full code. Smoking status: Never smoker Second hand tobacco smoke exposure: No Alcohol intake: never Substance use: never Substance use type: does not use Lack of Transportation: No Lack of Food: Never True Current Housing: I Have Housing Concerned About Future Housing: No Difficulty Paying Gas/Electric Bills: No Difficulty Paying for Meds: No Currently Unemployed: No Education: High School Diploma/GED Difficulty w/ Childcare or Family Care: No Living arrangements: with family Gender identity (if verbalized by the patient): Female Sexual Orientation (if Verbalized by the Patient): Straight or Heterosexual Spiritual care concerns: No Agree to blood products: Yes Exam Narrative: GENERAL: Well appearing, obese with BMI of 38.1, non-toxic, in no acute distress. HEAD: Normocephalic, atraumatic. RESPIRATORY: Airway patent, r
--- NOTE | 2023-08-24 17:48 | PC.NURSE ---
blood sugar is 217 at this time
[2023-08-24 17:49] LABS: Glucose Point of Care 217 mg/dl (65-105)
== END 2023-08-24 18:26 | disposition home or self-care (01) ==
PROVIDERS: Emergency Medicine; Emergency Provider Physician Assistant; PCP Family Medicine
DX: E10.65 Type 1 diabetes mellitus with hyperglycemia (principal); Z79.4 Long term (current) use of insulin; Z96.41 Presence of insulin pump (external) (internal); Z79.899 Other long term (current) drug therapy
CPT/HCPCS: 36415; 80053; 81001; 81025; 82010; 82948; 83735; 84100; 85025; 99283

== ENCOUNTER 2024-11-04 08:18 | Emergency (ER) | payer BC, SELFPAY ==
[2024-11-04 08:24] VITALS: BP 113/77; PULSE 91; RESP 16; TEMP 36.1; O2SAT 100
--- NOTE | 2024-11-04 08:44 | ED.URI ---
HPI - URI/Sore Throat General Chief Complaint: Upper Respiratory Infection Stated Complaint: Sore Throat Time Seen by Provider: 11/04/24 09:03 Source: patient, RN notes reviewed and old records reviewed Mode of arrival: ambulatory Limitations: no limitations History of Present Illness HPI Narrative: 24-year-old female presents to the [facility] after waking with a sore throat this morning. Denies any other symptoms. Denies fevers. No treatment prior to arrival Treatments prior to arrival: none Related Data Home Medications ?Medication ?Instructions ?Recorded ?Confirmed ?Last Taken ?Type subcutaneous insulin pump (Omnipod 02/24/21 11/04/24 Unknown History Insulin Management) blood-glucose sensor (Dexcom G6 06/27/21 11/04/24 Unknown History Sensor device) blood-glucose transmitter (Dexcom 06/27/21 11/04/24 Unknown History G6 Transmitter device) norgestimate-ethinyl estradiol 1 tablet PO DAILY 06/27/21 11/04/24 Unknown History 0.18mg/0.215mg/0.25mg-0.035mg(28)tablet (Tri Femynor) Allergies Allergy/AdvReac Type Severity Reaction Status Date / Time No Known Allergies Allergy Verified 11/04/24 08:25 Review of Systems Review of Systems: All systems reviewed & are unremarkable except as noted in HPI and below Constitutional: Constitutional: Reports no additional constitutional complaints ENT: Reports as per HPI and Reports sore throat Cardiovascular: Cardiovascular: Reports no additional cardiovascular complaints, Denies chest pain and Denies dyspnea Respiratory: Respiratory: Reports no additional respiratory complaints, Denies chest congestion, Denies cough and Denies dyspnea Musculoskeletal: Musculoskeletal: Reports no additional musculoskeletal complaints Integumentary/Breasts: Skin/Breast: Reports system reviewed and no additional complaints, except as docu PMFSH Past Medical History Medical History Migraine headache with aura Ingrown right big toenail delivery delivered Bulimia Surgical History Surgical History History of bilateral breast reduction surgery Status post myringotomy with insertion of tube Family History Family History Grandparent Diabetes mellitus Father Asthma Sibling Anxiety Social History Social History Social History: The patient lives in [place], [place]. She is studying biology at [employer] and works at a local [employer]. Lifelong nonsmoker. No alcohol or illicit substance abuse. Her parents Irish and Torey are her surrogate decision makers and she wishes to be a full code. Smoking status: Never smoker Second hand tobacco smoke exposure: No Alcohol intake: never Substance use: never Substance use type: does not use Lack of Transportation: No Lack of Food: Never True Current Housing: I Have Housing Concerned About Future Housing: No Difficulty Paying Gas/Electric Bills: No Difficulty Paying for Meds: No Currently Unemployed: No Education: High School Diploma/GED Difficulty w/ Childcare or Family Care: No Living arrangements: with family Gender identity (if verbalized by the patient): Female Sexual Orientation (if Verbalized by the Patient): Straight or Heterosexual Spiritual care concerns: No Agree to blood products: Yes Comments At the time of my signature, I reviewed and agree with the nursing past medical, surgical, social, and family history. There is no relevant family history pertinent to the patient complaint. Exam Const: General: cooperative, healthy appearing, comfortable, no acute distress, well developed, alert and well nourished Nutritional Appearance: well nourished Orientation/consciousness: patient oriented x3 Limitations: no limitations HENMT: Head: normal to inspection Ears: hearing grossly normal bilaterally, external ears normal, TM's normal bilaterally, EAC's normal, mastoids normal and no periauricular adenopathy Mouth: Yes Normal oral and palatal mucosa present, Yes lip normal, Yes tongue normal and Yes moist mucous membranes Throat: posterior oropharynx normal, tonsils normal and no uvular edema Eyes: General: appearance normal, both eyes and all related structures Alignment and Position: alignment normal Neck: Neck: normal visual inspection, full ROM, no lymphadenopathy and no meningeal signs Chest: Chest palpation & inspection: normal inspection of the chest Resp: Effort & Inspection: normal respiratory effort and able to speak in complete sentences Auscultation: clear to auscultation bilaterally, no crackles, no rales, no rhonchi and no wheezes Cardio: Rate: regular rate Skin: General skin exam: normal color and no rashes or lesions noted Neuro: General: patient oriented x3, gait normal, moves all extremities and no meningeal signs Cognition (Neuro): normal cognition Speech: normal speech Gait exam (Neuro): Normal gait present Extrem: General: normal to inspection, full ROM, capillary refill normal and normal gait Psych: Appearance: grossly normal and well kempt Mental Status: mental status grossly normal Speech and movement: Normal speech and movement present and Clear speech present Affect: normal affect Attitude: cooperative Course Course Level of Care: Express Care Visit Vital Signs Vital signs: Vital Signs Temperature 97.0 F L 11/04/24 08:24 Pulse Rate 91 11/04/24 08:24 Respiratory Rate 16 11/04/24 08:24 Blood Pressure 113/77 11/04/24 08:24 Pulse Oximetry 100 11/04/24 08:24 Oxygen Delivery Room Air 11/04/24 08:24 Temperature 97.0 F L 11/04/24 08:24 Pulse Rate 91 11/04/24 08:24 Respiratory Rate 16 11/04/24 08:24 Blood Pressure 113/77 11/04/24 08:24 Pulse Oximetry 100 11/04/24 08:24 Oxygen Delivery Room Air 11/04/24 08:24 Reviewed MDM - URI/Sore Throat MDM Narrative Medical decision making narrative: Patient sitting in exam room. Patient is nontoxic, vitals stable. Patient woke up this morning with a sore throat. Strep test is negative. No acute findings noted on exam. Patient is appropriate for outpatient treatment with follow-up. Discharge instructions reviewed with patient, as well as provided in writing per nursing staff. The instructions also include specific and strict return/GO TO THE ER as well as f/u information. All questions have been answered, and the patient deny any further questions with discharge and discharge plan. Some parts of this dictation were generated by voice recognition software and may contain typographical and/or grammatical inaccuracies. Differential Diagnosis Differential diagnosis: Likely upper respiratory infection, otitis media, sinusitis, viral infection, bronchitis, influenza and pharyngitis Lab Data Labs: Lab Results 11/04/24 Range/Units 08:29 POC Grp A Strep Screen Negative (Negative) Reviewed Critical Care Time Critical Care Time Critical Care Time: No Discharge Plan Discharge Clinical Impression: Pharyngitis Qualifiers: Pharyngitis/tonsillitis etiology: unspecified etiology Qualified Code(s): J02.9 - Acute pharyngitis, unspecified Patient Disposition: Home Condition: Stable Instructions: Antibiotic Form, Pharyngitis (ED) Additional Instructions: Your rapid strep swab was negative today at [facility]. A throat culture will be sent to the laboratory for further testing. If the test is positive, you will receive a phone call within 48 hours and an appropriate antibiotic will be initiated at that time. Typically viral infections last 7-10 days, can linger for couple of weeks. It is very important to treat your symptoms. Drink plenty of water, Gatorade, Pedialyte, ice pops or Jell-O. -Alternate Tylenol and Motrin per package directions for fever or pain. You can alternate every 4 hours -Antihistamine medication such as Zyrtec/Claritin/Cecille during the day can help improve symptoms. -doing daily nasal irrigations can help relieve pressure your sinuses. Things like a Neti pot -Use Flonase twice a day for 5 days then daily to help reduce the inflammation and dry up your sinuses. -You can also use Mucinex. Be sure to drink plenty of water with this medication at least 8 ounces with every dose and it is important to drink 8 to 10 glasses of water per day. Water is a natural decongestant -Eat and drink things that are easy to swallow, like tea or soup, or popsicles. -Oral rinses such as: Salt water gargles and/or may use topical anesthetic (eg. Chloraseptic spray) or lozenges to relieve dryness or throat pain). -Frequent hand washing or hand community service manager is one of the best ways to prevent spread of infection. -Using a vaporizer or humidifier at night will also help thin secretions and help with coughing up phlegm. -Follow up with primary care provider in 7-10 days if condition is not improving - For new or worsening symptoms go directly to the nearest ER Patient Language: Chinese Prescriptions: No Action norgestimate-ethinyl estradiol [Tri Femynor] 0.18/0.215/0.25 mg-35 mcg (28) tablet 1 tablet PO DAILY (DME) Dexcom G6 Sensor Device MISCELLANEOUS (DME) Dexcom G6 Transmitter Device MISCELLANEOUS (DME) Omnipod Classic PDM Kit(Gen 3) Misc MISCELLANEOUS Patient Comments: Novalog 0.7 units per hr from 3523-8634 Novalog 1.7 units per hr from 0632-1063 Novalog 0.9 units per hr from 4884-1068 Novalog 0.6 units per hr from 1608-1145 Novalog 0.8 units per hr from 9011-4516 Novalog 0.9 units per hr from 1546-6279 sumatriptan succinate 50 mg tablet See Rx Instructions PO .COMPLEX Qty: 10 8RF Rx Instructions: take 1 tab at onset of headache; if no relief may repeat 1 tab after at least 2 hrs; max = 4 tabs/24 hr PO Follow-up/Referrals: Yvette Munoz MD [Primary Care Provider, Family Practice] - 1 Week Clinical Impression: Pharyngitis Stand Alone Forms: Work/School Release IP Time of Disposition: 09:08
[2024-11-04 08:47] LABS: EDSTREPNEGPOS1 Negative (Negative)
== END 2024-11-04 09:15 | disposition home or self-care (01) ==
PROVIDERS: Emergency Provider Nurse Practitioner; PCP Family Medicine
DX: J02.9 Acute pharyngitis, unspecified (principal)
CPT/HCPCS: 87081; 87880; 99213; G0463

== ENCOUNTER 2024-12-13 11:52 | Emergency (ER) | payer BC, SELFPAY ==
[2024-12-13 12:11] VITALS: BP 134/69; PULSE 123; RESP 17; TEMP 36.6; O2SAT 100
--- NOTE | 2024-12-13 13:48 | PC.NURSE ---
Pt administered 8.2 units of Novolog per dexacom per Dr. Russell order
[2024-12-13] MEDS: LACTATED RINGERS 1,000 ML 999 ML IV CONT ×2 (13:55→14:35)
[2024-12-13 13:56] VITALS: BP 121/56; PULSE 107; RESP 20; O2SAT 100
--- NOTE | 2024-12-13 13:57 | ED_ITS ---
HPI - General Adult General Chief complaint: Nausea/Vomiting/Diarrhea Stated complaint: vomiting/ type 1 diabetic Time Seen by Provider: 12/13/24 13:24 History of Present Illness HPI narrative: [age] old female with history of type 1 diabetes with an insulin pump and and glucose monitor presented emergency department for evaluation for increased nausea and vomiting and decreased p.o. intake. Patient states that she had been out of her Dexcom for the last few days and began having nausea and vomiting last night. Patient states she did get her Dexcom filled today and does currently have it in place. Patient states she had just been doing basal insulin over the last few days. Patient did not suspect she was in DKA has it felt different than previous. Related Data Home Medications ?Medication ?Instructions ?Recorded ?Confirmed ?Last Taken ?Type subcutaneous insulin pump (Omnipod 02/24/21 11/04/24 Unknown History Insulin Management) blood-glucose sensor (Dexcom G6 06/27/21 11/04/24 Unk nown History Sensor device) blood-glucose transmitter (Dexcom 06/27/21 11/04/24 U nknown History G6 Transmitter device) norgestimate-ethinyl estradiol 1 tablet PO DAILY 06/2711/04/24 Unknown History 0.18mg/0.215mg/0.25mg-0.035mg(28)tablet (Tri Femynor) Allergies Allergy/AdvReac Type Severity Reaction Status Date / Time No Known Allergies Allergy Verified 12/13/24 14:00 Review of Systems 2 Review of Systems: All systems reviewed & are unremarkable except as noted in HPI and below PMFSH Past Medical History Medical History Migraine headache with aura Ingrown right big toenail delivery delivered Bulimia Surgical History Surgical History History of bilateral breast reduction surgery Status post myringotomy with insertion of tube Family History Family History Grandparent Diabetes mellitus Father Asthma Sibling Anxiety Social History Social History Social History: The patient lives in [place], [place]. She is studying biology at [employer] and works at a local [employer]. Lifelong nonsmoker. No alcohol or illicit substance abuse. Her parents Irish and Torey are her surrogate decision makers and she wishes to be a full code. Smoking status: Never smoker Second hand tobacco smoke exposure: No Alcohol intake: never Substance use: never Substance use type: does not use Lack of Transportation: No Lack of Food: Never True Current Housing: I Have Housing Concerned About Future Housing: No Difficulty Paying Gas/Electric Bills: No Difficulty Paying for Meds: No Currently Unemployed: No Education: High School Diploma/GED Difficulty w/ Childcare or Family Care: No Living arrangements: with family Gender identity (if verbalized by the patient): Female Sexual Orientation (if Verbalized by the Patient): Straight or Heterosexual Spiritual care concerns: No Agree to blood products: Yes Exam 2 Narrative: APPEARANCE: Ill-appearing HEAD: normocephalic, atraumatic. EYES: PERRLA/EOMI, conjunctivae clear. NOSE: Normal no drainage EARS:TMS clear with good light reflex. THROAT: Pharynx clear, no exudate. NECK: Supple. No adenopathy, no masses. RESPIRATORY: Airway patent, respirations nonlabored. Clear to auscultation bilaterally, no rales, rhonchi, wheezing. CARDIOVASCULAR: Regular rate and rhythm without murmurs rubs or gallops. ABDOMINAL: Soft, nontender, nondistended, normal bowel sounds MUSCULOSKELETAL: Moves all extremities. Strength/ROM intact, No edema, No calf tenderness. NEURO: Alert. Cranial nerves II through XII intact. Good gait. Good coordination SKIN: Warm, dry. Normal Color Course Vital Signs Vital signs: Vital Signs Temperature 97.9 F 12/13/24 12:11 Pulse Rate 123 H 12/13/24 12:11 Respiratory Rate 17 12/13/24 12:11 Blood Pressure 134/69 12/13/24 12:11 Pulse Oximetry 100 12/13/24 12:11 Oxygen Delivery Room Air 12/13/24 12:11 Temperature 97.9 F 12/13/24 12:11 Pulse Rate 98 12/13/24 14:36 Respiratory Rate 20 12/13/24 14:36 Blood Pressure 92/45 L 12/13/24 14:36 Pulse Oximetry 100 12/13/24 14:36 Oxygen Delivery Room Air 12/13/24 12:11 Medical Decision Making MDM Narrative Medical decision making narrative: [age] old female presented emergency department for evaluation for suspected DKA. Patient is hyperglycemic. Patient does have a functioning Dexcom an insulin pump in place. Patient states she did treat herself with 6 units of NovoLog at approximately 11:00 a.m. and while I was speaking to her she did really ink her Dexcom and insulin pump and patient treated herself with additional 8.5 units in the emergency department. Will be treated with 2 L of lactated Ringer's. Patient was also treated with 4 mg of IV Zofran. On re-evaluation after 2 L of lactated Ringer's patient does feel improved. Patient is tolerating p.o.. There was initial difficulty drawing the CMP but when the BMP was officially drawn after her 2 L of lactated Ringer's and insulin bolus there was only a minor gap. Patient is tolerating p.o.. Lactic acid was improved. Does no longer tachycardic. Patient was offered admission for mild DKA but patient preferred to be discharged home. Patient will be discharged home with instructions to follow a clear liquid diet patient will be provided Zofran and Reglan for nausea control. Differential Diagnosis Differential Diagnosis: UTI, COVID, RSV, influenza, dehydration, medication noncompliance, equipment malfunction, DKA, hyperglycemia Vital Signs Vital Signs: Vital Signs Temperature 97.9 F 12/13/24 12:11 Pulse Rate 123 H 12/13/24 12:11 Respiratory Rate 17 12/13/24 12:11 Blood Pressure 134/69 12/13/24 12:11 Pulse Oximetry 100 12/13/24 12:11 Oxygen Delivery Room Air 12/13/24 12:11 Temperature 97.9 F 12/13/24 12:11 Pulse Rate 98 12/13/24 14:36 Respiratory Rate 20 12/13/24 14:36 Blood Pressure 92/45 L 12/13/24 14:36 Pulse Oximetry 100 12/13/24 14:36 Oxygen Delivery Room Air 12/13/24 12:11 Lab Data Lab results reviewed: Yes I reviewed the patient's lab results. 12/13/24 13:44 12/13/24 16:11 Labs: Lab Results 12/13/24 12/13/24 12/13/24 Range/Units 12:10 13:44 13:51 WBC 10.6 H (4.5-10.0) K/mm3 RBC 4.87 (4.2-5.4) M/mm3 Hgb 14.5 (12.0-15.0) g/dL Hct 44.0 (37.0-47.0) % MCV 90.3 (80-100) fl MCH 29.8 (26-34) pg MCHC 33.0 (32-36) g/dl RDW 12.4 (11.5-14.5) % Plt Count 307 (150-375) k/mm3 MPV 10.8 H (7.4-10.4) fl Immature Gran % (Auto) 0.3 (0-0.5) % Neut % (Auto) 90.3 H (45.5-73.1) % Lymph % (Auto) 7.1 L (18.3-44.2) % [place] % (Auto) 2.2 L (2.6-8.5) % Eos % (Auto) 0.0 (0-4.4) % Baso % (Auto) 0.1 L (0.2-1.2) % Lymph # (Auto) 0.75 L (0.9-3.2) K/mm3 [place] # (Auto) 0.2 (0.1-0.6) K/mm3 Eos # (Auto) 0.0 (0-0.3) K/mm3 Baso # (Auto) 0.0 (0.0-0.1) K/mm3 Abs Immat Gran (auto) 0.03 (0.00-0.031) K/mm3 Absolute Neuts (auto) 9.6 H (1.3-6.7) K/mm3 Absolute Nucleated RBC 0.000 (0.0-0.012) K/mm3 Nucleated RBC % 0.0 (0.0-0.2) % Sodium (137-145) mmol/L Potassium (3.4-5.0) mmol/L Chloride (98-107) mmol/L Carbon Dioxide (22-30) mmol/L Anion Gap (4-12) mmol/L BUN (7-17) mg/dL Creatinine (0.7-1.0) mg/dL Estim Creat Clear Calc ml/min Estimated GFR (59 - ) Glucose (65-110) mg/dL POC Capillary Glucose 466 H (65-105) mg/dl Hemoglobin A1c 8.7 H (<5.7) % Lactic Acid 2.4 H (0.7-2.0) mmol/L Calcium (8.4-10.2) mg/dL Phosphorus (2.5-4.5) mg/dL Magnesium (1.6-2.3) mg/dL Total Bilirubin (0.2-1.3) mg/dL AST (14-36) U/L ALT (6-35) U/L Alkaline Phosphatase (38-126) U/L Total Protein (6.3-8.2) g/dL Albumin (3.5-5.1) g/dL Beta-Hydroxybutyrate/Acetoacetate 5.87 H (0.02-0.27) mmol/L Urine Color Yellow (Yellow) Urine Appearance Clear (Clear) Urine pH 5.5 (5.0-9.0) Ur Specific [place] 1.030 (1.001-1.035) Urine Protein Trace (Negative) mg/dL Urine Glucose (UA) 3+ H (Negative) mg/dL Urine Ketones 4+ H (Negative) mg/dL Ur Blood (Man) Negative (Negative) Urine Nitrate Negative (Negative) Urine Bilirubin Negative (Negative) Urine Urobilinogen 0.2 (<2.0) mg/dL Add Ur Microanalysis Reviewed Leukocyte Esterase Rfl Negative (Negative) AZIZA/UL Urine RBC 0-2 (0-2) /hpf Urine WBC 0-5 (0-3) /hpf Ur Squamous Epith Cells Few (Few) /hpf Urine Bacteria 1+ H /hpf Urine Casts 0-2 12/13/24 12/13/24 12/13/24 Range/Units 15:53 16:11 16:11 WBC (4.5-10.0) K/mm3 RBC (4.2-5.4) M/mm3 Hgb (12.0-15.0) g/dL Hct (37.0-47.0) % MCV (80-100) fl MCH (26-34) pg MCHC (32-36) g/dl RDW (11.5-14.5) % Plt Count (150-375) k/mm3 MPV (7.4-10.4) fl Immature Gran % (Auto) (0-0.5) % Neut % (Auto) (45.5-73.1) % Lymph % (Auto) (18.3-44.2) % [place] % (Auto) (2.6-8.5) % Eos % (Auto) (0-4.4) % Baso % (Auto) (0.2-1.2) % Lymph # (Auto) (0.9-3.2) K/mm3 [place] # (Auto) (0.1-0.6) K/mm3 Eos # (Auto) (0-0.3) K/mm3 Baso # (Auto) (0.0-0.1) K/mm3 Abs Immat Gran (auto) (0.00-0.031) K/mm3 Absolute Neuts (auto) (1.3-6.7) K/mm3 Absolute Nucleated RBC (0.0-0.012) K/mm3 Nucleated RBC % (0.0-0.2) % Sodium 135 L 134 L (137-145) mmol/L Potassium 4.7 (3.4-5.0) mmol/L Chloride (98-107) mmol/L Carbon Dioxide (22-30) mmol/L Anion Gap (4-12) mmol/L BUN (7-17) mg/dL Creatinine (0.7-1.0) mg/dL Estim Creat Clear Calc ml/min Estimated GFR (59 - ) Glucose (65-110) mg/dL POC Capillary Glucose 209 H (65-105) mg/dl Hemoglobin A1c (<5.7) % Lactic Acid (0.7-2.0) mmol/L Calcium (8.4-10.2) mg/dL Phosphorus (2.5-4.5) mg/dL Magnesium (1.6-2.3) mg/dL Total Bilirubin (0.2-1.3) mg/dL AST (14-36) U/L ALT (6-35) U/L Alkaline Phosphatase (38-126) U/L Total Protein (6.3-8.2) g/dL Albumin (3.5-5.1) g/dL Beta-Hydroxybutyrate/Acetoacetate (0.02-0.27) mmol/L Urine Color (Yellow) Urine Appearance (Clear) Urine pH (5.0-9.0) Ur Specific [place] (1.001-1.035) Urine Protein (Negative) mg/dL Urine Glucose (UA) (Negative) mg/dL Urine Ketones (Negative) mg/dL Ur Blood (Man) (Negative) Urine Nitrate (Negative) Urine Bilirubin (Negative) Urine Urobilinogen (<2.0) mg/dL Add Ur Microanalysis Leukocyte Esterase Rfl (Negative) AZIZA/UL Urine RBC (0-2) /hpf Urine WBC (0-3) /hpf Ur Squamous Epith Cells (Few) /hpf Urine Bacteria /hpf Urine Casts 12/13/24 12/13/24 12/13/24 Range/Units 16:11 16:11 16:11 WBC (4.5-10.0) K/mm3 RBC (4.2-5.4) M/mm3 Hgb (12.0-15.0) g/dL Hct (37.0-47.0) % MCV (80-100) fl MCH (26-34) pg MCHC (32-36) g/dl RDW (11.5-14.5) % Plt Count (150-375) k/mm3 MPV (7.4-10.4) fl Immature Gran % (Auto) (0-0.5) % Neut % (Auto) (45.5-73.1) % Lymph % (Auto) (18.3-44.2) % [place] % (Auto) (2.6-8.5) % Eos % (Auto) (0-4.4) % Baso % (Auto) (0.2-1.2) % Lymph # (Auto) (0.9-3.2) K/mm3 [place] # (Auto) (0.1-0.6) K/mm3 Eos # (Auto) (0-0.3) K/mm3 Baso # (Auto) (0.0-0.1) K/mm3 Abs Immat Gran (auto) (0.00-0.031) K/mm3 Absolute Neuts (auto) (1.3-6.7) K/mm3 Absolute Nucleated RBC (0.0-0.012) K/mm3 Nucleated RBC % (0.0-0.2) % Sodium (137-145) mmol/L Potassium 4.7 (3.4-5.0) mmol/L Chloride 108 H 108 H (98-107) mmol/L Carbon Dioxide 12 L 12 L (22-30) mmol/L Anion Gap 15 H (4-12) mmol/L BUN (7-17) mg/dL Creatinine (0.7-1.0) mg/dL Estim Creat Clear Calc ml/min Estimated GFR (59 - ) Glucose (65-110) mg/dL POC Capillary Glucose (65-105) mg/dl Hemoglobin A1c (<5.7) % Lactic Acid (0.7-2.0) mmol/L Calcium (8.4-10.2) mg/dL Phosphorus (2.5-4.5) mg/dL Magnesium (1.6-2.3) mg/dL Total Bilirubin (0.2-1.3) mg/dL AST (14-36) U/L ALT (6-35) U/L Alkaline Phosphatase (38-126) U/L Total Protein (6.3-8.2) g/dL Albumin (3.5-5.1) g/dL Beta-Hydroxybutyrate/Acetoacetate (0.02-0.27) mmol/L Urine Color (Yellow) Urine Appearance (Clear) Urine pH (5.0-9.0) Ur Specific [place] (1.001-1.035) Urine Protein (Negative) mg/dL Urine Glucose (UA) (Negative) mg/dL Urine Ketones (Negative) mg/dL Ur Blood (Man) (Negative) Urine Nitrate (Negative) Urine Bilirubin (Negative) Urine Urobilinogen (<2.0) mg/dL Add Ur Microanalysis Leukocyte Esterase Rfl (Negative) AZIZA/UL Urine RBC (0-2) /hpf Urine WBC (0-3) /hpf Ur Squamous Epith Cells (Few) /hpf Urine Bacteria /hpf Urine Casts 12/13/24 12/13/24 12/13/24 Range/Units 16:11 16:11 16:11 WBC (4.5-10.0) K/mm3 RBC (4.2-5.4) M/mm3 Hgb (12.0-15.0) g/dL Hct (37.0-47.0) % MCV (80-100) fl MCH (26-34) pg MCHC (32-36) g/dl RDW (11.5-14.5) % Plt Count (150-375) k/mm3 MPV (7.4-10.4) fl Immature Gran % (Auto) (0-0.5) % Neut % (Auto) (45.5-73.1) % Lymph % (Auto) (18.3-44.2) % [place] % (Auto) (2.6-8.5) % Eos % (Auto) (0-4.4) % Baso % (Auto) (0.2-1.2) % Lymph # (Auto) (0.9-3.2) K/mm3 [place] # (Auto) (0.1-0.6) K/mm3 Eos # (Auto) (0-0.3) K/mm3 Baso # (Auto) (0.0-0.1) K/mm3 Abs Immat Gran (auto) (0.00-0.031) K/mm3 Absolute Neuts (auto) (1.3-6.7) K/mm3 Absolute Nucleated RBC (0.0-0.012) K/mm3 Nucleated RBC % (0.0-0.2) % Sodium (137-145) mmol/L Potassium (3.4-5.0) mmol/L Chloride (98-107) mmol/L Carbon Dioxide (22-30) mmol/L Anion Gap 14 H (4-12) mmol/L BUN 12 11 (7-17) mg/dL Creatinine 0.73 0.72 (0.7-1.0) mg/dL Estim Creat Clear Calc 111 ml/min Estimated GFR (59 - ) Glucose (65-110) mg/dL POC Capillary Glucose (65-105) mg/dl Hemoglobin A1c (<5.7) % Lactic Acid (0.7-2.0) mmol/L Calcium (8.4-10.2) mg/dL Phosphorus (2.5-4.5) mg/dL Magnesium (1.6-2.3) mg/dL Total Bilirubin (0.2-1.3) mg/dL AST (14-36) U/L ALT (6-35) U/L Alkaline Phosphatase (38-126) U/L Total Protein (6.3-8.2) g/dL Albumin (3.5-5.1) g/dL Beta-Hydroxybutyrate/Acetoacetate (0.02-0.27) mmol/L Urine Color (Yellow) Urine Appearance (Clear) Urine pH (5.0-9.0) Ur Specific [place] (1.001-1.035) Urine Protein (Negative) mg/dL Urine Glucose (UA) (Negative) mg/dL Urine Ketones (Negative) mg/dL Ur Blood (Man) (Negative) Urine Nitrate (Negative) Urine Bilirubin (Negative) Urine Urobilinogen (<2.0) mg/dL Add Ur Microanalysis Leukocyte Esterase Rfl (Negative) AZIZA/UL Urine RBC (0-2) /hpf Urine WBC (0-3) /hpf Ur Squamous Epith Cells (Few) /hpf Urine Bacteria /hpf Urine Casts 12/13/24 12/13/24 12/13/24 Range/Units 16:11 16:11 16:11 WBC (4.5-10.0) K/mm3 RBC (4.2-5.4) M/mm3 Hgb (12.0-15.0) g/dL Hct (37.0-47.0) % MCV (80-100) fl MCH (26-34) pg MCHC (32-36) g/dl RDW (11.5-14.5) % Plt Count (150-375) k/mm3 MPV (7.4-10.4) fl Immature Gran % (Auto) (0-0.5) % Neut % (Auto) (45.5-73.1) % Lymph % (Auto) (18.3-44.2) % [place] % (Auto) (2.6-8.5) % Eos % (Auto) (0-4.4) % Baso % (Auto) (0.2-1.2) % Lymph # (Auto) (0.9-3.2) K/mm3 [place] # (Auto) (0.1-0.6) K/mm3 Eos # (Auto) (0-0.3) K/mm3 Baso # (Auto) (0.0-0.1) K/mm3 Abs Immat Gran (auto) (0.00-0.031) K/mm3 Absolute Neuts (auto) (1.3-6.7) K/mm3 Absolute Nucleated RBC (0.0-0.012) K/mm3 Nucleated RBC % (0.0-0.2) % Sodium (137-145) mmol/L Potassium (3.4-5.0) mmol/L Chloride (98-107) mmol/L Carbon Dioxide (22-30) mmol/L Anion Gap (4-12) mmol/L BUN (7-17) mg/dL Creatinine (0.7-1.0) mg/dL Estim Creat Clear Calc 113 ml/min Estimated GFR > 60 > 60 (59 - ) Glucose 180 H 178 H (65-110) mg/dL POC Capillary Glucose (65-105) mg/dl Hemoglobin A1c (<5.7) % Lactic Acid 1.6 (0.7-2.0) mmol/L Calcium 9.1 (8.4-10.2) mg/dL Phosphorus (2.5-4.5) mg/dL Magnesium (1.6-2.3) mg/dL Total Bilirubin (0.2-1.3) mg/dL AST (14-36) U/L ALT (6-35) U/L Alkaline Phosphatase (38-126) U/L Total Protein (6.3-8.2) g/dL Albumin (3.5-5.1) g/dL Beta-Hydroxybutyrate/Acetoacetate (0.02-0.27) mmol/L Urine Color (Yellow) Urine Appearance (Clear) Urine pH (5.0-9.0) Ur Specific [place] (1.001-1.035) Urine Protein (Negative) mg/dL Urine Glucose (UA) (Negative) mg/dL Urine Ketones (Negative) mg/dL Ur Blood (Man) (Negative) Urine Nitrate (Negative) Urine Bilirubin (Negative) Urine Urobilinogen (<2.0) mg/dL Add Ur Microanalysis Leukocyte Esterase Rfl (Negative) AZIZA/UL Urine RBC (0-2) /hpf Urine WBC (0-3) /hpf Ur Squamous Epith Cells (Few) /hpf Urine Bacteria /hpf Urine Casts 12/13/24 Range/Units 16:11 WBC (4.5-10.0) K/mm3 RBC (4.2-5.4) M/mm3 Hgb (12.0-15.0) g/dL Hct (37.0-47.0) % MCV (80-100) fl MCH (26-34) pg MCHC (32-36) g/dl RDW (11.5-14.5) % Plt Count (150-375) k/mm3 MPV (7.4-10.4) fl Immature Gran % (Auto) (0-0.5) % Neut % (Auto) (45.5-73.1) % Lymph % (Auto) (18.3-44.2) % [place] % (Auto) (2.6-8.5) % Eos % (Auto) (0-4.4) % Baso % (Auto) (0.2-1.2) % Lymph # (Auto) (0.9-3.2) K/mm3 [place] # (Auto) (0.1-0.6) K/mm3 Eos # (Auto) (0-0.3) K/mm3 Baso # (Auto) (0.0-0.1) K/mm3 Abs Immat Gran (auto) (0.00-0.031) K/mm3 Absolute Neuts (auto) (1.3-6.7) K/mm3 Absolute Nucleated RBC (0.0-0.012) K/mm3 Nucleated RBC % (0.0-0.2) % Sodium (137-145) mmol/L Potassium (3.4-5.0) mmol/L Chloride (98-107) mmol/L Carbon Dioxide (22-30) mmol/L Anion Gap (4-12) mmol/L BUN (7-17) mg/dL Creatinine (0.7-1.0) mg/dL Estim Creat Clear Calc ml/min Estimated GFR (59 - ) Glucose (65-110) mg/dL POC Capillary Glucose (65-105) mg/dl Hemoglobin A1c (<5.7) % Lactic Acid (0.7-2.0) mmol/L Calcium 9.0 (8.4-10.2) mg/dL Phosphorus 3.1 (2.5-4.5) mg/dL Magnesium 1.9 (1.6-2.3) mg/dL Total Bilirubin 0.5 (0.2-1.3) mg/dL AST 26 (14-36) U/L ALT 19 (6-35) U/L Alkaline Phosphatase 64 (38-126) U/L Total Protein 6.9 (6.3-8.2) g/dL Albumin 4.0 (3.5-5.1) g/dL Beta-Hydroxybutyrate/Acetoacetate (0.02-0.27) mmol/L Urine Color (Yellow) Urine Appearance (Clear) Urine pH (5.0-9.0) Ur Specific [place] (1.001-1.035) Urine Protein (Negative) mg/dL Urine Glucose (UA) (Negative) mg/dL Urine Ketones (Negative) mg/dL Ur Blood (Man) (Negative) Urine Nitrate (Negative) Urine Bilirubin (Negative) Urine Urobilinogen (<2.0) mg/dL Add Ur Microanalysis Leukocyte Esterase Rfl (Negative) AZIZA/UL Urine RBC (0-2) /hpf Urine WBC (0-3) /hpf Ur Squamous Epith Cells (Few) /hpf Urine Bacteria /hpf Urine Casts Discharge Plan Discharge Clinical Impression: Nausea & vomiting, Hyperglycemia Patient Disposition: Home Condition: Stable Instructions: Antibiotic Form, Clear Liquid Diet (ED) Additional Instructions: Zofran for nausea control. Reglan for additional nausea control. Clear liquid diet for the next 1-3 days. Advance to a bland diet as tolerated. If you have any worsening symptoms then please call or return to the emergency department. Patient Language: Frisian Prescriptions: New ondansetron 4 mg tablet,disintegrating 4 mg PO Q8H PRN (Reason: nausea and vomiting) Qty: 14 0RF metoclopramide HCl [Reglan] 10 mg tablet 10 mg PO Q6H PRN (Reason: nausea and vomiting) Qty: 14 0RF No Action norgestimate-ethinyl estradiol [Tri Femynor] 0.18/0.215/0.25 mg-35 mcg (28) tablet 1 tablet PO DAILY (DME) Dexcom G6 Sensor Device MISCELLANEOUS (DME) Dexcom G6 Transmitter Device MISCELLANEOUS (DME) Omnipod Classic PDM Kit(Gen 3) Misc MISCELLANEOUS Patient Comments: Novalog 0.7 units per hr from 8092-4126 Novalog 1.7 units per hr from 1190-0093 Novalog 0.9 units per hr from 1089-7742 Novalog 0.6 units per hr from 0297-4718 Novalog 0.8 units per hr from 5327-8458 Novalog 0.9 units per hr from 5848-7203 sumatriptan succinate 50 mg tablet See Rx Instructions PO .COMPLEX Qty: 10 8RF Rx Instructions: take 1 tab at onset of headache; if no relief may repeat 1 tab after at least 2 hrs; max = 4 tabs/24 hr PO Follow-up/Referrals: Yvette Munoz MD [Primary Care Provider, Family Practice]
[2024-12-13] MEDS: ONDANSETRON INJ 4 MG/2 ML VIAL IV PUSH (14:00)
[2024-12-13 14:05] LABS: Hematocrit 44.0 % (37.0-47.0); Hemoglobin 14.5 g/dL (12.0-15.0); Immature Granulocyte Percent A 0.3 % (0-0.5); Lymphocytes Absolute Auto 0.75 K/mm3 (0.9-3.2); Mean Corpuscular HGB Conc 33.0 g/dl (32-36); Mean Corpuscular Hemoglobin 29.8 pg (26-34); Mean Corpuscular Volume 90.3 fl (80-100); Nucleated Red Blood Cells Absolute Auto 0.000 K/mm3 (0.0-0.012); Nucleated Red Blood Cells Perc 0.0 % (0.0-0.2); Platelet Count Result 307 k/mm3 (150-375); Red Blood Count 4.87 M/mm3 (4.2-5.4); White Blood Count 10.6 K/mm3 (4.5-10.0)
[2024-12-13 14:08] LABS: Add Urine Microscopic? YES; Appearance Urine Clear (Clear); Glucose Urine UA 3+ mg/dL (Negative); Leukocyte Esterase Ur Negative LEU/UL (Negative); Need Manual Microscopic Reviewed; Nitrate Urine Negative (Negative); Non Pathogenic Casts 0-2; Specific Grav Ur 1.030 (1.001-1.035)
--- OUTSIDE RECORDS SUMMARY | 2024-12-13 14:24 | XMS_ITS | Data Portability ---
Author Organization [facility] Address [address] [place] [address] Care Team Providers Care Bottom Precipitator Operator Name Role Phone ELIF GONZALEZ Primary Care Provider [phone] JACQUE DISLA Primary Care Provider Assessment Encounter Date Assessment Date Assessment LastModified by Organization Details LastModified Time 03/19/2021 03/19/2021 silver nitrate again zoloft to start FU 2 weeks for post exam. [email or web address] Not available 03/19/2021 11:38:30 04/05/2021 04/05/2021 Normal exam May resume normal activities contraceptive plan-- POP FU for WWE 2 mos- refill zoloft and micronor then [email or web address] Not available 04/05/2021 11:21:00 06/09/2021 06/09/2021 healthy female exam GC/CT/trich done declines further std testing first pap next year contraception- OCP refilled zoloft refilled FU 1 year or prn [email or web address] Not available 06/09/2021 16:37:17 06/20/2022 06/20/2022 healthy female exam GC/CT/trich done declines further std testing first pap done contraception-OC P refilled doing well nystop powder diflucan HPV vaccine-done FU 1 year or prn Not available 06/21/2022 19:23:52 06/28/2023 06/28/2023 Annual gynecological exam performed. Patient will come back in a year unless there are new symptoms. [email or web address] Not available 06/28/2023 09:53:06 Plan of Treatment Reminders Order Date Submit Date Provider Last Modified By Organization Details Last Modified Time Details Appointments None recorded. Lab None recorded. Referral None recorded. Procedures None recorded. Surgeries None recorded. Imaging None recorded. Medication Orders norgestimat e-ethinyl estradiol 0.18mg/0.21 5mg/0.25mg- 0.035mg(28) tablet 2023 024 [facility] [address] [place] [address], [address], 4 10:22:54 Nystop 100,000 unit/gram topical powder 2022 023 [facility] [address] [place] [address], [address], 3 17:09:12 Diflucan 150 mg tablet 2022 023 [address] [place] [address], [address], 4 09:55:19 sertraline 50 mg tablet 2022 023 [address] [place] [address], [address], 4 09:55:45 Tri Femynor (28) 0.18 mg(7)/0.215 mg(7)/0.25 mg(7)-35 mcg tablet 2022 023 [facility] [address] [place] [address], [address], 3 17:09:11 sertraline 50 mg tablet 2021 022 [address], [address] [place] [address], [address], 4 09:55:45 Tri Femynor (28) 0.18 mg(7)/0.215 mg(7)/0.25 mg(7)-35 mcg tablet 2021 [facility]2510, [address] [place], [address], 15:52:31 Ortho Micronor 0.35 mg tablet 2021 022 [facility]armacy #2510, [address] [place], [address], 12:06:07 Zoloft 50 mg tablet 2021 022 [email or web address] [facility]/Pharmacy #2510, [address] [place], [address], 09:55:45 Patient TargetsNo targets recorded. Patient InstructionsNo instructions recorded. Reason for Referral None Reported. Results Created Date Observation Date Name Description Value Unit Range Abnormal Flag Note LastModifiedBy Organization Detail LastModifiedTime 02/23/2002/22/2021 CULTU RE: GROUP B STREP SCREE N, REFLE X SUSCE PTIBI LITY result report SEE RESULT S BELOW abnormal Test: Cultu re: Group B Strep , Refle x Susce ptibi lity ([facility] ) Speci men Sourc e: Vagin a/Rec rome Speci men Type: Vagin al/Re ctal Speci men Date: 02/22 4:56 PM Resul t Date: 4:40 PM Resul t Statu s: Final resul t Abnor mal: Yes Resul ting Lab: [facility] [address] [facility] [address] Tel: CULTU RE ----- ----- ----- --- Posit jessica for Strep tococ cus agala ctiae (Grou p B) (Abno rmal) Clind amyci n = resis tant, eryth romyc in = resis tant. Cefaz abraham may be used for intra partu m proph ylaxi s in penic illin -colleen rgic women at low risk, and Vanco mycin is recom oliver d for women at high risk for anaph ylaxi s. Grady ptibi lity testi ng is not neces andra for these drugs . Not Available [facility] (Lab) [address], [place], [address], 02/27/2021 17:43:13 06/10/19 22 06/09/2021 CT/GC AND TRICH OMONA S VAGIN GYPSY (RRNA ), SWAB chlamydia trachomatis, PCR Negati ve negati ve Not Available [facility] (Lab) [address], [place], [address], 06/10/2021 12:33:10 06/10/19 22 06/09/2021 CT/GC AND TRICH OMONA S VAGIN GYPSY (RRNA ), SWAB neisseria gonorrhoeae, PCR Negati ve negati ve Not Available [facility] (Lab) [address], [place], [address], 06/10/2021 12:33:10 06/10/19 22 06/09/2021 CT/GC AND TRICH OMONA S VAGIN GYPSY (RRNA ), SWAB trichomonas vaginalis ribosomal RNA (rrna) Negati ve negati ve Not Available [facility] (Lab) [address], [place], [address], 06/10/2021 12:33:10 06/21/19 23 06/20/2022 IMAGE GUIDE D PAP, REFLE X HPV IF ASCUS ONLY image guided Pap, reflex HPV ASCUS only SEE RESULT S BELOW CASE REPOR T: Cytol ogy Gynec ologi braulio Repor t Case: [id number] Autho kathleen g Provi howard: Yolanda Wilson MD Colle cted: 06/20 1641 Order ing Locat ion: [place] Path[facility] Recei shanti: 06/21 0901 First Scree n: McBri de, Radhika ret, CT Speci men: Scree margie Pap - Image d, Cervi x STATE MENT OF ADEQU ACY: Satis facto ry for evalu ation Trans forma tion zone compo nent prese nt FINAL DIAGN OSIS: Negat jessica for Intra epith elial Lesio n or Alfredo rivera (NIL) . Elect berthatoño cha krzysztof d by Radhika Roy ret, CT on 2022 at 1:53 PM ----- ----- ----- ----- ----- ----- ----- ----- ----- ----- ----- ----- ----- ----- ----- ----- ----- ---- COMME NT: This speci men was revie wed by a Cytot echno logis t and/o r Patho logis t (as indic ated in this repor t) after evalu ation using the Thinp rep Imagi ng Syste m. CLINI BRAULIO INFOR MATIO N: Menst rual Statu s: LMP (if appli cable ): Clini braulio Histo ry/Pr eviou s Pap: Type of Neopl bev (if appli cable ): Signi fican t Clini braulio Findi ngs: Other Histo ry: Hormo danielito (if appli cable ): PAP EDUCA HAMIDA L NOTE: The Pap Test is a scree margie test with an inher ent false negat jessica rate. Liqui d-bas ed sampl ing may decre ase, but will not elimi kristal, false negat jessica resul ts. A negat jessica resul t does not precl ude the prese nce and/o r devel opmen t of disea se, since the prese nce of abnor mal cells in the sampl e depen ds on the locat ion of the lesio n and sampl ing techn ique. Trini nued regul ar scree margie is the best metho d of cance r preve ntion . If repor mariel cytol ogic findi ng do not corre late with physi braulio and/o r histo rical findi ngs, furth er inves tigat ion is recom oliver d, as clini octavio garcia nted. Not Available [facility] (Lab) [address], [place], [address], 06/23/2022 14:55:52 06/21/19 23 06/20/2022 TRICH OMONA S VAGIN GYPSY (RRNA ) trichomonas vaginalis ribosomal RNA (rrna) Negati ve negati ve Not Available [facility] (Lab) [address], [place], [address], 06/23/2022 14:55:53 06/21/19 23 06/20/2022 CT/GC (CRISTIANO) , THINP REP VIAL chlamydia trachomatis, PCR Negati ve negati ve Not Available [facility] (Lab) [address], [place], [address], 06/23/2022 14:55:54 06/21/19 23 06/20/2022 CT/GC (CRISTIANO) , THINP REP VIAL neisseria gonorrhoeae, PCR Negati ve negati ve Not Available [facility] (Lab) [address], [place], [address], 06/23/2022 14:55:54 02/23/20 21 02/22/2021 non-s tress test No observ ation record ed. [email or web address], [place], [address], 02/22/2021 14:19:52 Result Notes None recorded. Problems Name Problem SNOMED Code Status Onset Date Resolution Date Notes Provider Name and Address Organization Details Recorded Time Family history of Congenit al heart disease 541976005 Completed FOB with coarctat ion of aorta- echo 12/18 WNL Aarti gustafson, [facility] 2 12:33:24 Bulimia nervosa 05962654 Completed remissio n for 6 mos, sees counselo r weekly Aarti gustafson [facility] 2 12:33:24 Family history of Congenit al heart disease 039022633 Active FOB with coarctat ion of aorta- echo 12/18 WNL Aarti Abramsmirellasravankaleighrayne [facility] 12:33:24 Bulimia nervosa 23313884 Active remissio n for 6 mos, sees counselo r weekly Aarti Abramsmirellasravanpatrick diamond [facility] 2 12:33:24 RhD negative [id number] Completed Rhogam 12/22/20 [facility] Abramsjeremiah [facility] 12:33:24 Type 1 diabetes mellitus 34034374 Active 2020 likely del 37 wk due to uncontro lled sugars; [facility], has pump and dexcom, [facility], has endocrin ologist. A1C 5.4 in May and Oct. A1C 6.0 12/25 per MFM Aartidarci diamond [facility], [facility] 2 12:33:24 Type 1 diabetes mellitus 72020196 Completed 2020 likely del 37 wk due to uncontro lled sugars; [facility], has pump and dexcom, ASA, has endocrin ologist. A1C 5.4 in May and Oct. A1C 6.0 12/25 per MF Aartidarci [facility] 2 12:33:24 Pregnanc y [id number] Completed 202003/15/2021 Aarti diamond [facility], [facility] 2 12:33:30 Large for gestatio n age fetus Completed 2020 [facility] U/S - REQUESTE D RECORDS! Called [facility] 12/ l/m for RN to send records. Aarti gustafson [facility] 2 12:33:24 Large for gestatio n age fetus Active 2020 [facility] U/S - REQUESTE D RECORDS! Called [facility] 02/04 l/m for RN to send records. Aarti Akua diamond null, [facility] 2 12:33:24 Uterine size for dates discrepa ncy 820806163 Completed 2020 Yolanda Mcdowell MD [address], [place], [address], [facility] 1 15:59:43 Uterine size for dates discrepa ncy 875008544 Active 2020 Blanca Dill null, [facility] 1 14:15:59 Problem Notes None recorded. Procedures Surgical History Date Name Laterality Status Provider Name and Address Organization Details Recorded Time 1 SECTION (SURG) completed Maricarmen Geiger [facility] 02/25/2021 10:59:41 9 Breast reduction completed Sherin Morelos [facility] 08/19/2020 11:20:03 Imaging Results None recorded. Procedure Notes None recorded. Medical Equipment None Reported. Allergies No known drug allergies Medications Name Sig Start Date Stop Date Status Note LastModified by Organization Details LastModified Time Glucagon Emergency Kit 1 mg solution for injection INJECT 1ML NEEDED FOR HYPOGYLCE JAK active Not Available Not Available No t Available fluconazole 150 mg tablet TAKE 1 TABLET BY MOUTH EVERY DAY 06/27 completed Not Available Not Available Not Available hydrocodone 5 mg-acetamin ophen 325 mg tablet TAKE 1 TABLET BY MOUTH EVERY 6 HOURS NEEDED FOR PAIN 06/09 completed Not Available Not Available Not Available ondansetron HCl 4 mg tablet 1 tablet by mouth every 4-6 hours as needed 03/05 completed Not Available Not Available Not Available dexamethaso ne 6 mg tablet TAKE 1 TABLET BY MOUTH ONCE FOR 1 DOSE active Not Available Not Available No t Available clindamycin HCl 150 mg capsule TAKE 3 CAPSULES BY MOUTH EVERY 8 HOURS FOR 7 DAYS 06/27 completed Not Available Not Available Not Available sumatriptan 50 mg tablet TAKE 1 TAB AT ONSET OF HEADACHE IF NO RELIEF MAY REPEAT 1 TAB AFTER 2 HRS MAX = 4 TABS/24 HR active Not Available Not Available No t Available ciprofloxac in 500 mg tablet TAKE 1 TABLET BY MOUTH EVERY 12 HOURS 06/09 completed Not Available Not Available Not Available sulfamethox azole 800 mg-trimetho prim 160 mg tablet TAKE 1 TABLET BY MOUTH EVERY 12 HOURS FOR 7 DAYS 06/20 completed Not Available Not Available Not Available cephalexin 500 mg capsule Take 1 capsule every 8 hours by oral route for 10 days. 04/05 completed Not Available Not Available Not Available oseltamivir 75 mg capsule TAKE 1 CAPSULE BY MOUTH TWICE A DAY FOR 5 DAYS 06/27 completed Not Available Not Available Not Available promethazin e 25 mg tablet TAKE 1 TABLET BY MOUTH EVERY 6 HOURS NEEDED FOR NAUSEA AND VOMITING 06/09 completed Not Available Not Available Not Available hydrocortis one 2.5 % topical cream APPLY TO AFFECTED AREA 2 TIMES DAILY FOR 10 DAYS active Not Available Not Available No t Available norgestimat e-ethinyl estradiol 0.18mg/0.21 5mg/0.25mg- 0.035mg(28) tablet TAKE 1 TABLET BY MOUTH EVERY DAY 2024 active Not Available Not Available Not Avai lable Novolog U-100 Insulin aspart 100 unit/mL subcutaneou s solution FOR USE VIA INSULIN PUMP.TOTA L DAILY DOSE 100 UNITS WITH FLUSHES active Not Available Not Available No t Available nystatin 100,000 unit/gram topical powder APPLY TO THE AFFECTED AREA(S) BY TOPICAL ROUTE 2 TIMES PER DAY active Not Available Not Available No t Available ibuprofen 600 mg tablet 04/05 completed Not Available Not Available Not Available ondansetron 4 mg disintegrat ing tablet TAKE 1 TABLET BY MOUTH EVERY 8 HOURS NEEDED FOR NAUSEA AND VOMITING 06/27 completed Not Available Not Available Not Available fluoxetine 20 mg capsule TAKE 1 CAPSULE BY MOUTH EVERY DAY active Not Available Not Available No t Available sertraline 50 mg tablet TAKE 1 TABLET BY MOUTH EVERY DAY 06/27 completed Not Available Not Available Not Available Ketostix strips TEST FIRST IN THE MORNING URINE AND DIRECTED active Not Available Not Available No t Available Ortho Micronor 0.35 mg tablet Take 1 tablet every day by oral route. 04/14 completed Not Available Not Available Not Available Novolog FlexPen U-100 Insulin aspart 100 unit/mL (3 mL) subcutaneou s INJECT 15 UNITS (0.15 ML) SUBCUTANE OUSLY 3 TIMES A DAY WITH MEALS active Not Available Not Available No t Available nitrofurant oin monohydrate /macrocryst als 100 mg capsule Take 1 capsule every 12 hours by oral route. 12/02 completed Not Available Not Available Not Available Lantus Solostar U-100 Insulin 100 unit/mL (3 mL) subcutaneou s pen INJECT 18 UNITS UNDER THE SKIN DAILY active Not Available Not Available No t Available OneTouch Verio test strips USE TO TEST BLOOD SUGAR 4-5 TIMES PER DAY active Not Available Not Available No t Available Dexcom G6 Sensor device CHANGE SENSOR EVERY 10 DAYS active Not Available Not Available No t Available Dexcom G6 Associate Professor Of Art History USE DIRECTED FOR CONTINUOU S GLUCOSE MONITORIN G active Not Available Not Available No t Available Dexcom G6 Transmitter device CHANGE EVERY 90 DAYS active Not Available Not Available No t Available Dexcom G6 Sensor 03/05 completed Not Available Not Available Not Available Omnipod Dash Pods (Gen 4) subcutaneou s cartridge CHANGE EVERY 2-3 DAYS DIRECTED active Not Available Not Available No t Available Omnipod Dash Pods (Gen 4) 03/05 completed Not Available Not Available Not Available BD Angela 2nd Gen Pen Needle 32 gauge x 5/32 USE UP TO 6 TIMES DAILY active Not Available Not Available No t Available OneTouch Delica Plus Lancet 33 gauge USE TO TEST BLOOD SUGAR 4 5 TIMES PER DAY active Not Available Not Available No t Available Baqsimi 3 mg/actuatio n nasal spray PLEASE SEE ATTACHED FOR DETAILED DIRECTION S 06/27 completed Not Available Not Available Not Available OneTouch Verio Reflect Meter USE DIRECTED active Not Available Not Available No t Available Omnipod 5 G6 Pods (Gen 5) subcutaneou s cartridge CHANGE THE PODS EVERY 48-72 HOURS active Not Available Not Available No t Available Omnipod 5 G6 Intro Kit (Gen 5) subcutaneou s cartridge with controller active Not Available Not Available N ot Available Vitals Date Recorded Body height Body mass index (BMI) Body mass index (BMI) [Percentile] Per age and sex Body weight Systolic And Diastolic Provider Name and Address Organization Details Last Updated DateTime 03/19/2021 162.56 cm 36.4 kg/m2 97 % 77921.5 8 g 129/83 mm[Hg] [facility] 2 11:22:17 Date Recorded Body height Body mass index (BMI) [Percentile] Per age and sex Body mass index (BMI) Body weight Systolic And Diastolic Provider Name and Address Organization Details Last Updated DateTime 04/05/2021 162.56 cm 97 % 36.2 kg/m2 22550.9 9 g 140/80 mm[Hg] [facility] 2 11:00:12 Date Recorded Body height Body mass index (BMI) Body mass index (BMI) [Percentile] Per age and sex Body weight Systolic And Diastolic Provider Name and Address Organization Details Last Updated DateTime 06/09/2021 162.56 cm 37.6 kg/m2 98 % 41220.7 3 g 117/84 mm[Hg] [facility] 2 15:40:35 Date Recorded Body weight Systolic And Diastolic Provider Name and Address Organization Details Last Updated DateTime 06/20/2022 701446.39 g 128/80 mm[Hg] [facility] 06/20/2022 16:45:07 Date Recorded Body height Body mass index (BMI) Body weight Systolic And Diastolic Provider Name and Address Organization Details Last Updated DateTime 06/28/2023 162.56 cm 40.3 kg/m2 428168.21 g 109/75 mm[Hg] Shu Liriano [facility] 06/28/2023 09:54:30 Social History Question Answer Notes LastModified by Organizat ion Details LastModified Time Tobacco Smoking Status Never Smoker [facility] 04/05/2021 10:55:11 Do You Have An Advance Directive? No [email or web address] Information n ot available 08/19/2020 How Many Years Have You Consumed Alcohol? 2 [email or web address] Information not available 08/19/2020 Are You Blind Or Do You Have Difficulty Seeing? No [email or web address] Information n ot available 08/19/2020 What Is Your Level Of Caffeine Consumption? Occasional [email or web address] Information not available 08/19/2020 How Much Tobacco Do You Chew? None [email or web address] Information not available 08/19/2020 In The 14 Days Before Symptom Onset, Have You Had Close Contact With A Laboratory-confirm ed COVID-19 While That Case Was Ill? No [email or web address] Information n ot available 08/19/2020 In The 14 Days Before Symptom Onset, Have You Had Close Contact With A Person Who Is Under Investigation For COVID-19 While That Person Was Ill? No [email or web address] Information not available 08/19/2020 Have You Been To An Area Known To Be High Risk For COVID-19? No [email or web address] Information not available 08/19/2020 Are You Deaf Or Do You Have Serious Difficulty Hearing? No [email or web address] Information not available 08/19/2020 What Type Of Diet Are You Following? CARBOHYDRATE [email or web address] Information n ot available 08/19/2020 What Is The Highest Grade Or Level Of School You Have Completed Or The Highest Degree You Have Received? [id number] Information not available 08/19/2020 Are There Any Guns Present In Your Home? No [email or web address] Information not available 08/19/2020 Do You Use Protection During Sex? No Information not available 08/19/2020 Do You Use Your Seat Belt Or Car Seat Routinely? Yes [email or web address] Information not available 08/19/2020 Do You Have Smoke And Carbon Monoxide Detectors In Your Home? Yes [email or web address] Information not available 08/19/2020 How Much Tobacco Do You Smoke? No [email or web address] Information not available 08/19/2020 Do You Use Sunscreen Routinely? Yes [email or web address] Information not available 08/19/2020 Have You Used IV Drugs? No Information not available 08/19/2020 Sex: Unknown Functional Status Question Answer Note LastModified by Organizat ion Details LastModified Time Do you use any illicit or recreational drugs? No [email or web address] Information not available 08/19/2020 What is your level of alcohol consumption? None [email or web address] Information not available 08/19/2020 Are you able to walk independently without assistance or assistive devices? 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 Moderate [email or web address] Information not available 08/19/2020 Mental Status Question Answer Note LastModified by Organization D etails LastModified Time Do you feel stressed (tense, restless, nervous, or anxious, or unable to sleep at night)? [id number] [email or web address] Information not available 08/19/2020 Family History Relationship Description Onset Age of this Age Resolved Age Notes LastModified by Organization Details LastModified Time Paternal Grandfather Diabetes mellitus [email or web address] Not available 2020 11:18:47 Father Asthma [email or web address] Not available 0 08/19/2020 11:18:47 Medical History Condition Response Diabetes Y Eating Disorder Y Other Y Gynecological History Statement/Question Response Date of Last Mammogram Date of LMP 06/01/2023 N Was last menstrual period normal Y STIs/STDs N Date of Last Colonoscopy None Desired Control Method BCPs Abnormal Pap N On BCP's at Conception? Y HPV Vaccine Y Colposcopy Duration of Flow (days) 5 Current Control Method BCPs Age at First Child 20 Are cycles usually normal Y Frequency of Cycle (Q days) 28 Sexually Active? Y Menses Monthly Y Date of DEXA bone scan Age of first menstrual cycle 11 Date of Last Pap Smear Sexual Problems? N LMP Approximate N Obstetrics History GPAL:G 1 P 1 0 0 1 Type Value Full Term 1 Living 1 Total 1 Past Encounters Encounter ID Performer Location Encounter Start Date Encounter Closed Date Diagnosis/Indication Diagnosis SNOMED-CT Code Diagnosis ICD10 Code Diagnosis IMO Codes Diagnosis Note [id number] Ruth Ortez CNM [place] [address] [address] 08/19/2020 11:00:18 08/19/2020 11:40:09 test positive 825846196 Z32.01 Risk factors addressed: Tobacco Cessation, Safe Sexual Practices, environmen eleni, work hazards, travel restrictio ns, seat belt use.Eat a health well balanced diet, avoid alcohol, tobacco, and street drugs.Enga ge in daily low impact exercise, avoid temperatur e extremes, and cat, rodent, and bird feces.Avoi d travel to areas where zika virus is a concern.Of fered cf/sma/nip t. Handouts given and discussed with patient.Ch ildbirth classes recommende d.New OB sheet given.If previous , counseling .Pt verbalizes that she understand s the importance of above instructio ns.All questions were answered.P atient reminded to have annual well woman examinatio n and address preventati ve healthcare . Pre-existi ng type 1 diabetes mellitus in 471370910 O24.019 Pt currently on insulin pump and continuous glucose monitoring . She is managed by [facility] physicians . I would like a MFM consult also. [id number] Anthony Blas MD [place] [address],[place] [address] 08/19/2020 11:01:38 08/19/2020 12:55:11 [id number] Yolanda Mcdowell MD [place] [address],[place] [address] 09/08/2020 17:08:20 09/09/2020 16:54:32 Routine care 241235198 Z34.91 test positive 388924117 Z32.01 Pre-existi ng type 1 diabetes mellitus in 315532531 O24.019 Pt currently on insulin pump and continuous glucose monitoring . She is managed by [facility] physicians . MFM consult also. Family his tory of Congenital heart disease 004987629 Z82.79 Bulimia nervosa 70898022 F50.2 [id number] Anthony Blas MD [place] [address],[place] [address] 10/06/2020 15:18:03 10/06/2020 15:56:22 Routine care 562850600 Z34.02 [id number] Yolanda Mcdowell MD [place] [address],[place] [address] 2020 18:06:25 11/04/2020 13:56:58 Type 1 diabetes mellitus 12531053 E10.9 Uterine si ze for dates discrepancy 327199191 O26.849 [id number] Yolanda Mcdowell MD [place] [address],[place] [address] 12/04/2020 15:46:10 12/07/2020 19:46:55 Type 1 diabetes mellitus 52376452 E10.9 Routine an tenatal care 402138277 Z34.91 [id number] Yolanda Mcdowell MD [place] [address],[place] [address] 01/01/2021 11:44:00 01/01/2021 13:50:07 Type 1 diabetes mellitus 24578883 E10.9 Bulimia nervosa 52214109 F50.2 Routine an tenatal care 708916860 Z34.91 [id number] Yolanda Mcdowell MD [place] [address],[place] [address] 01/15/2021 15:37:28 01/15/2021 16:02:13 Large for gestation age fetus 801912203 O36.63X1 Type 1 nabila betes mellitus 58064741 E10.9 Routine an tenatal care 184292712 Z34.91 [id number] Anthony Blas MD [place] [address],[place] [address] 01/19/2021 10:55:51 01/19/2021 12:02:28 management [id number] Z39.1 consult consult completed. Initiating breastfeed ing discussed. Pt instructed on the importance of kangaroo care and being skin to skin with after delivery to initiate early breastfeed ing. Pt instructed on proper latch and signs to watch for to indicate a poor latch. Pt instructed on importance of colostrum and nutritiona l needs of in the first couple days of life. Pt instructed on full milk coming in and engorgemen t. Pt instructed on breastfeed ing schedule and how often and how long to nurse infant. Pt instructed on importance of feeding every 1-3 hours and on demand and importance of waking to nurse a minimum of every 3 hours until breastfeed ing is well establishe d and is gaining weight appropriat roya. Pt also instructed on pumping if the infant does not nurse well. Pt has a history of breast reduction surgery. Pt states a clark hole incision was done to spare her nipple and areola and she was informed they did not damage the nerve endings. Pt is unsure if milk ducts were cut. Pt informed breast milk supply can be an issue after breast reduction surgery. Pt instructed on importance of breast tissue stimulatio n at least every 2 hours initially and then every 3 after breast feeding is well establishe d. Importance of pumping if the does not nurse well reinforced . Pt informed latch issues and/or milk supply issues can be addressed after delivery if those issues occur. Pt informed even if the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 Breech presentat ion, Gdm Insulin uncontrol led & LGA, Gbs+, macrosomi c polyhydra mnios, EBL 885 Discharge Information Feeding Method Contraceptive Method Maternal HG B and HCT Levels
--- OUTSIDE RECORDS SUMMARY | 2024-12-13 14:24 | XMS_ITS | Clinical Summary ---
Author Organization [facility] Address [address] [place] [address] Care Team Providers Care Special Procedures Tech Name Role Phone Millicent Funez MD Primary Care Provider [phone] Source Comments [facility],non-owned Affiliates and Associated Physician Practices is amultiple site organization consisting of ambulatory clinics and hospital sitesin [place], [place], [place] and [place]. This disclosure is being madepursuant to the Care Everywhere program and may not contain all information available regarding this patient. Last updated 17.[facility] Allergies No known active allergies Medications * Be aware that medications may not be up to date on this document. Alwaysverify current medications with the patient. ondansetron (ZOFRAN) 4 MG tablet Take 1 (one) tablet by mouth every 6 hours as needed for Nausea/Vomiting 15 tablet 1 Active blood glucose test strip Use 1 (one) strip as directed 300 strip 1 1 Active Additional Information Patient not taking.Reported on 01/13/2021 lancets Use 1 (one) Each once daily 100 Each 1 Active Additional Information Patient not taking.Reported on 01/13/2021 Blood Glucose Monitoring Suppl (RuptureUCH VERIO REFLECT) w/Device KIT Use 1 kit as directed 1 kit 1 Active Additional Information Patient not taking.Reported on 01/13/2021 Continuous Blood Gluc Transmit (DEXCOM G6 TRANSMITTER) [facility] Active Insulin Disposable Pump (OMNIPOD STARTER) KIT Use as directed A ctive Insulin Aspart (NOVOLOG SC) Active Vit-Fe Fumarate-FA ( PLUS) 27-1 MG tablet Take 1 tablet by mouth once daily Active BABY ASPIRIN POIndications:T ype 1 diabetes mellitus during in second trimester (HCC) Take 162 mg by mouth Active Glucagon 3 MG/DOSE POWD Use one actuation into a single nostril. If no response, may repeat in 15 minutes using a new intranasal device. 1 Active Continuous Blood Gluc Sensor (DEXCOM G6 SENSOR) [facility] Will use 1 sensor every 10 days. 1 box = 3 sensors. 1 Active Continuous Blood Gluc Rubber Down (DEXCOM G6 STUDENT ACCOUNTS COORDINATOR) PADMAJA USE DIRECTED FOR CONTINUOUS GLUCOSE MONITORING 1 Active KETOSTIX strip TEST FIRST IN THE MORNING URINE AND DIRECTED 1 Active Active Problems Problem Noted Date Diagnosed Date High-risk 11/29/2020 Overview (11/29/2020): Genetic screening completed with primary field cane scaler - LR male; CF, SMA carrier negative History of bilateral breast reduction surgery Overview (11/29/2020): June 2018 - breast surgery can complicate , however it is not a contraindication to . consultation from a weatherization specialist recommended. Obesity affecting 11/29/2020 Overview (11/29/2020): BMI 30 pre- History of bulimia nervosa 09/08/2020 Overview (11/29/2020): In college and until February 2020. She is followed by a cutting machine operator. Type 1 diabetes mellitus during 2020 Overview (09/08/2020): Dx secondary to DKA 04/08/20 Migraine 11/02/2010 Resolved Problems Problem Noted Date Diagnosed Date Resolved Date Overweight (BMI 25.0-29.9) 02/25/2020 1 BMI (body mass index), pedia tric, 95-99% for age 0810/19/2012 02/25/2020 Allergic rhinitis 06/30/2009 09/08/2020 GE reflux 06/30/2009 02/25/2020 Immunizations Immunization Administration Dates Next Due INFLUENZA VACCINE, TRIV. (AF LURIA, FLUZONE TRIVALENT; 6MO+) (IIV3) 12/01/2009 DTaP VACCINE IM (6wk-6yrs) 02/24/2006,,05/19/2001,03/08,01/04/2001 FLU VACCINE TRI IIV3 SPLIT P F IM (FLUVIRIN) 12/23/2015 HEP A PEDS 2 DOSE 10/19/2012,07/25/2008 HEP B VACCINE, PED/ADOL 02/18/2002,2000, HIB BOOSTER 07/19/2002, 2,03/08/2001,01/04 Human Papilloma Virus Vidhya valent Vaccine 03/17/2014,10/19/2012,05/19/2012 INFLUENZA A [id number] VACCINE 01/09/2009 INFLUENZA VACCINE 01/05/2021,12/10/2013 INFLUENZA VACCINE, QUADR. (A FLURIA, FLUZONE QUADRIVALENT; 6MO+) (IIV4) 12/29/2016 INFLUENZA VACCINE, QUADR. (F LUZONE; FLULAVAL; FLUARIX; AFLURIA QUADRIVALENT; 6MO+), 0.5 ML (IIV4) 11/16/2019,12/22/2018,12/18/2017 Influenza Nasal 12/30/2010 SUNDEEP VACCINE QUAD LAIV4 PF NASAL 12/10/2013 MENINGOCOCCAL ACWY (MCV4P) VAC IM 02/28/2017, MMR 02/24/2006,11/12/2001 PNEUMOCOCCAL CONJ, PEDS 11/12/2001,05/19,03/08/2001,01/04 PNEUMOCOCCAL PCV VACCINE 11/12/2001,04/28,03/08/2001,01/04 POLIO IPV 02/24/2006, 2,03/08/2001,01/04 PPD 02/24/2006,11/12/2001 TDAP (7yrs+) 05/19/2012 VARICELLA 07/25/2008,02/18/2002 Family History Medical History Relation Name Comments Asthma Father Diabetes - Type 2 Paternal Grandfather Relation Name Status Comments Father Paternal Grandfather Social History Tobacco Use Types Packs/Day Years Used Date Smoking Tobacco: Never Smokeless Tobacco: Never Alcohol Use Standard Drinks/Week Comments Not Currently 0 (1 standard drink = 0.6 oz pur e alcohol) Comments No Sex and Gender Information Value Date Recorded Sex Assigned at Not on file Legal Sex Female 5:43 AM MECHANIC WELDER TRUCK DRIVER Gender Identity Not on file Sexual Orientation Not on file Last Filed Vital Signs Vital Sign Reading Time Taken Comments Blood Pressure 122/74 02/18/2021 4:49 PM MECHANIC WELDER TRUCK DRIVER Pulse 96 02/18/2021 4:49 PM MECHANIC WELDER TRUCK DRIVER Temperature 36 C (96.8 F) 04/08/2020 11:13 AM MECHANIC WELDER TRUCK DRIVER Respiratory Rate 16 11/08/2010 3:17 AM CDT Oxygen Saturation 100% 04/08/2020 11:13 AM MECHANIC WELDER TRUCK DRIVER Inhaled Oxygen Concentration - - Weight 105.7 kg (233 lb) 02/18/2021 4:49 PM MECHANIC WELDER TRUCK DRIVER Height 162.6 cm (5' 4) 02/18/2021 4:49 PM MECHANIC WELDER TRUCK DRIVER Body Mass Index 39.99 02/18/2021 4:49 PM MECHANIC WELDER TRUCK DRIVER Plan of Treatment Health Maintenance Due Date Last Done Comments HEPATITIS C SCREENING 10/30/2018 DIABETES RETINOPATHY SCREENING 09/08/2020 DIABETES-FOOT EXAM WITH MONOFILAMENT 09/08/2020 DIABETES-HGB A1C 08/06/2021 02/05/2021, , 2020, Additional history exists CHLAMYDIA/GONORRHEA SCREENING 08/19/2021 08/19/2020 DIABETES-SERUM CREATININE 09/18/20212020, 09/13/2020, 09/13/2020, Additional history exists PAP SMEAR 2021 DTAP/TDAP/TD VACCINES (7 - Td or Tdap) 05/19/2022 05/19/2012, 02/24/2006, 07/19/2002, Additional history exists DEPRESSION SCREENING 02/28/2024 DIABETES - URINE PROTEIN SCREENING 02/28/2024 COVID-19 VACCINE ( season) 2024 INFLUENZA VACCINE (#1) 2024 , 11/16/2019, 12/22/2018, Additional history exists ZOSTER VACCINE (1 of 2) 2050 PNEUMOCOCCAL VACCINE Completed 11/12/2001, 11/12/2001, 05/19/2001, Additional history exists HEPATITIS B VACCINE Completed 02/18/2002, 2000, 2000 HIB VACCINE Completed 07/19/2002, 04/28, 03/08/2001, Additional history exists HPV VACCINE Completed 03/17/2014, 09/28, 05/19/2012 MENINGOCOCCAL GROUPS A/C/Y/W VACCINE Completed 02/28/2017, 03/17/2014 HIV SCREENING Completed 09/08/2020 MENINGOCOCCAL (Group B) VACCINE SHARED DECISION-MAKING Aged Out No longer eligible based on patient's age to complete this topic Goals Goal Patient Goal Type Associated Problems Recent Progress Patient-Stated? Author Exercise 3X per week (30 min per time) Exercise On track( 020 9:33 AM MECHANIC WELDER TRUCK DRIVER) Millicent Marquez MD Note: Caring for Your Overweight Child Get Moving: It is recommended that children and teens get physical activity for at least 1 hour per day on most (or better yet, all) days of the week. That may sound like a lot, especially if your child is not getting any physical activity now. But physical activity means more than exercise. It can mean playing games in the backyard, or washing the car. It can mean picking up leaves, or walking the dog. Add the healthy habit of physical activity to your family s schedule. When children take off weight through dieting alone, 80 percent of the loss is from fatty tissue and 20 percent is from muscle. Adding weight-resistance training to an exercise routine preserves the muscle tissue. Virtually every ounce dropped comes from fat. Once an adolescent meets her goal, regular exercise is essential for maintaining the desired weight. Where can I go for more information? [employer] ( ) www.aap.org HealthyChildren.org www.healthychildren.org U.S. Department of Health and Human Services www.hhs.gov Website and free downloadable letha for smartphones: http://www.Egalet/ [facility] Lifestyle: Use safety retraint in car Lifestyle On track( 020 9:33 AM MECHANIC WELDER TRUCK DRIVER) Nishi Lau RN Procedures Procedure Name Priority Date/Time Associated Diagnosis Comments HEMOGLOBIN A1C - POINT OF CARE (AMB) [facility] Routine 02/05/2021 Type 1 diabetes mellitus during in second trimester Supervision of high risk in third trimester COMPREHENSIVE METABOLIC PANEL Routine 09/18/2020 2:25 PM CDT Type 1 diabetes mellitus during in second trimester from Last 3 Months or Most Recently Relevant to Health Maintenance Results * HEMOGLOBIN A1C - POINT OF CARE (AMB) [facility] (02/05/2021) Pathologist [facility] Hemoglobin A1c POCT 6.5 % BLOOD SPECIMEN / Unknown 02/05/2021 us Ibrahima Nolan MD LAB - POINT OF CARE ORDERABLE S Final Result * (ABNORMAL) COMPREHENSIVE METABOLIC PANEL (09/18/2020 2:25 PM CDT) Glucose 49(L) 65 - 99 mg/dL [facility] Comment: Fasting reference interval BUN 13 7 - 20 mg/dL [facility] Creatinine 0.50 0.50 - 1.00 mg/dL [facility] eGFR by MDRD 140 > OR = 60 mL/min/1. 73m2 [facility] eGFR by MDRD 163 > OR = 60 mL/min/1. 73m2 [facility] BUN/Creatinine Ratio NOT APPLICABLE 6 - 22 (calc) [facility] Sodium 138 135 - 146 mmol/L [facility] Potassium 3.8 3.8 - 5.1 mmol/L [facility] Chloride 105 98 - 110 mmol/L [facility] CO2 28 20 - 32 mmol/L [facility] Calcium 9.4 8.9 - 10.4 mg/dL [facility] Protein Total 6.3 6.3 - 8.2 g/dL [facility] Albumin 3.8 3.6 - 5.1 g/dL [facility] Globulin Total 2.5 2.0 - 3.8 g/dL (calc) [facility] Albumin/Globuli n Ratio 1.5 1.0 - 2.5 (calc) [facility] Bilirubin Total 0.2 0.2 - 1.1 mg/dL [facility] Alkaline Phosphatase 66 36 - 128 U/L [facility] AST 21 12 - 32 U/L [facility] ALT 22 5 - 32 U/L [facility] Comment: Test Performed at: [facility] [address] [place] [address] VIDHAY MARTIN DO,MPH Blood BLOOD SPECIMEN / Unknown 09/18/2020 2:25 PM CDT 09/18/2020 2:26 PM CDT us Millicent Singh MD LAB - CHEMISTRY ORDERABLES Final Result [facility] [address] [place] [address] from Last 3 Months or Most Recently Relevant to Health Maintenance Insurance [facility] [place] [address] ANTHEM ANTHEM ANTHEM ANTHEM ANTHEM ANTHEM ANTHEM ANTHEM ANTHEM ANTHEM ANTHEM ANTHEM ANTHEM ANTHEM ANTHEM ANTHEM ANTHEM ANTHEM ANTHEM ANTHEM ANTHE[place] [address] ANTHEM ANTHEM ANTHEM ANTHEM ANTHEM ANTHEM [place]THE[place] [address] ANTHEM ANTHEM ANTHEM ANTHEM ANTHEM ANTHEM ANTHEM ANTHEM ANTHEM ANTHEM ANTHEM ANTHEM ANTHEM ANTHEM Care Teams Special Procedures Tech Relationship Specialty Start Date End Date Millicent Funez MD PCP - General Pediatrics 12/10/13
--- OUTSIDE RECORDS SUMMARY | 2024-12-13 14:24 | XMS_ITS | Encounter Summary ---
Author Organization [facility] Address [address] [place] [address] Care Team Providers Care Weft Straightener Name Role Phone Val Gillis MD Unavailable Val Gillis MD Primary Care Provider [phone] Millicent Funez MD Primary Care Provider [phone] Kwesi Kc DO Unavailable [phone] Millicent Funez MD Unavailable [phone] Kwesi Kc DO Unavailable [phone] Leia Aragon RN Unavailable [phone] Kwesi Kc DO Unavailable [phone] Encounter Details Date Type Department Care Team (Late st Contact Info) Description 01/09/2009 [facility] Outpatient Visit [facility] - Pediatrics [address] [place] [address] [address] [place] [address] Millicent Funez MD [address] [place], [place] [address], [place] [address] Social History Tobacco Use Types Packs/Day Years Used Date Smoking Tobacco: Never Assessed Comments Unknown Sex and Gender Information Value Date Recorded Sex Assigned at Not on file Legal Sex Female 5:43 AM TESTING CONSULTANT Gender Identity Not on file Sexual Orientation Not on file documented as of this encounter Plan of Treatment Not on file documented as of this encounter Visit Diagnoses Not on filedocumented in this encounter Additional Health Concerns Infection Onset Date Last Indicated Resolved Time COVID-19 Under Investigation 04/06/2020 04/06/2020 04/06/2020 5:30 PM TESTING CONSULTANT COVID-19 Under Investigation 04/08/2020 04/08/2020 04/09/2020 10:11 AM TESTING CONSULTANT documented as of this encounter Care Teams Weft Straightener Relationship Specialty Start Date End Date Val Gillis MD PCP - Pediatrics 01/09/09 04/15/20 Val Gillis MD [address] [place] [address] PCP - General 07/14/10 12/09/13 Millicent Funez MD [address] [place] [address] PCP - General Pediatrics 12/10/13 Kwesi Kc DO [address] [place] [address] PCP - Attributed-Jay Commercial 01/27/19 03/29/19 Millicent Funez MD [address] [place] [address] PCP - Attributed-Jay Commercial 03/30/19 06/27/19 Kwesi Kc DO [address] [place] [phone] PCP - Attributed-Jay Commercial 06/28/19 12/15/20 Kwesi Kc DO [address] [place] [phone] PCP - Attributed-Jay Commercial 04/21/17 12/27/17 Leia Aragon RN Division ChairCareer And Technology Education Teacher 10/15/20 11/09/20 documented as of this encounter
--- OUTSIDE RECORDS SUMMARY | 2024-12-13 14:24 | XMS_ITS | Encounter Summary ---
Author Organization [facility] Address [address] [place] [address] Care Team Providers Care Lime Puller Name Role Phone Val Gillis MD Unavailable Val Gillis MD Primary Care Provider [phone] Millicent Funez MD Primary Care Provider [phone] Kwesi Kc DO Unavailable [phone] Millicent Funez MD Unavailable [phone] Kwesi Kc DO Unavailable [phone] Leia Aragon RN Unavailable [phone] Kwesi Kc DO Unavailable [phone] Encounter Details Date Type Department Care Team (Late st Contact Info) Description 12/26/2012 [facility] Outpatient Visit [facility] [address] [place] [address] Unknown, Provider Social History Tobacco Use Types Packs/Day Years Used Date Smoking Tobacco: Never Assessed Comments No Sex and Gender Information Value Date Recorded Sex Assigned at Not on file Legal Sex Female 5:43 AM DIET COUNSELOR Gender Identity Not on file Sexual Orientation Not on file documented as of this encounter Plan of Treatment Not on file documented as of this encounter Visit Diagnoses Not on filedocumented in this encounter Additional Health Concerns Infection Onset Date Last Indicated Resolved Time COVID-19 Under Investigation 04/06/2020 04/06/2020 04/06/2020 5:30 PM DIET COUNSELOR COVID-19 Under Investigation 04/08/2020 04/08/2020 04/09/2020 10:11 AM DIET COUNSELOR documented as of this encounter Care Teams Lime Puller Relationship Specialty Start Date End Date Val Gillis MD PCP - Pediatrics 01/09/09 04/15/20 Val Gillis MD [address] [place] [address] PCP - General 07/14/10 12/09/13 Millicent Funez MD [address] [place] [address] PCP - General Pediatrics 12/10/13 Kwesi Kc DO [address] [place] [phone] PCP - Attributed-[employer] Commercial 01/27/19 03/29/19 Millicent Funez MD [address] [place] [address] PCP - Attributed-[employer] Commercial 03/30/19 06/27/19 Kwesi Kc DO [address] [place] [address] PCP - Attributed-[employer] Commercial 06/28/19 12/15/20 Kwesi Kc DO [address] [place] [phone] PCP - Attributed-[employer] Commercial 04/21/17 12/27/17 Leia Aragon RN Casing FlusherSupervisor [employer] 10/15/20 11/09/20 documented as of this encounter
--- OUTSIDE RECORDS SUMMARY | 2024-12-13 14:24 | XMS_ITS | Clinical Summary ---
Author Organization [facility] Address [address] [place] [address] Care Team Providers Care Flow Manager Name Role Phone Ashleigh Valentin MD Unavailable [phone] Yolanda Carpio MD Unavailable [phone] Yvette Munoz MD Primary Care Provider [phone] Allergies No known active allergies Medications OneTouch Delica Plus Lancet 33 gauge misc 04/15/19 21 Active blood-glucose meter,continuous (Dexcom G6 Construction Director) miscIndications: Uncontrolled type 1 diabetes mellitus with hyperglycemia (HCC) 1 Dexcom G6 Construction Director 1 each 04/29/19 21 Active BD Ultra-Fine Angela Pen Needle 32 gauge x 5/32 needle USE UP TO 6 TIMES DAILY 200 each 2 05/27/19 21 Active Tri Femynor 0.18/0.215/0.25 mg-35 mcg (28) per tablet Take 1 tablet by mouth daily 06/18/19 22 Active SUMAtriptan (IMITREX) 50 mg tablet PLEASE SEE ATTACHED FOR DETAILED DIRECTIONS 12/23/19 22 Active FLUoxetine (PROzac) 20 mg capsule Take 1 capsule (20 mg total) by mouth daily 12/15/19 23 Active insulin glargine (LANTUS) 100 unit/mL (3 mL) pen for injection Insulin pump backup - 33 units daily in the AM 05/23/19 24 Active glucagon (BAQSIMI) 3 mg/actuation spray,non-aeroso lIndications:Typ e 1 diabetes mellitus without complication Use one actuation into a single nostril. If no response, may repeat in 15 minutes using a new intranasal device. 2 each 2 06/21/19 24 Active acetone, urine, test stripIndications :Type 1 diabetes mellitus without complication Test first AM urine and as directed 50 strip 2 06/21/19 24 Active insulin pump cart,automated,B T (Omnipod 5 G6 Pods, Gen 5,) cartridgeIndicat ions:Type 1 diabetes mellitus without complication Change the pods every 48-72hrs 15 each 10/06/19 24 Active blood-glucose sensor (Dexcom G6 Sensor) deviceIndication s:Uncontrolled type 1 diabetes mellitus with hyperglycemia (HCC) CHANGE SENSOR EVERY 10 DAYS 3 each 03/01/19 25 Active tirzepatide (Mounjaro) 2.5 mg/0.5 mL pen injector injection Inject 2.5 mg weekly 2 mL 6 09/04/19 25 Active OneTouch Verio test strips stripIndications :Type 1 diabetes mellitus without complication,Unc ontrolled type 1 diabetes mellitus with hyperglycemia (HCC) USE TO TEST BLOOD SUGAR 4 TO 5 TIMES A DAY 450 strip 3 09/24/19 25 Active insulin pump cart,auto,BT,G6/ 7 (Omnipod 5 G6-G7 Pods, Gen 5,) cartridge CHANGE THE PODS EVERY 48-72 HOURS 15 each 5 10/01/19 25 Active tirzepatide (Mounjaro) 5 mg/0.5 mL pen injector injectionIndicat ions:Type 1 diabetes mellitus without complication INJECT 0.5 ML (5 MG TOTAL) UNDER THE SKIN EVERY 7 DAYS START AFTER TAKING 2.5 MG WEEKLY FOR 4 WEEKS. 2 mL 2 10/25/19 25 Active insulin aspart (NovoLOG) 100 unit/mL vial for injectionIndicat ions:Type 1 diabetes mellitus without complication VIA INSULIN PUMP 100 UNITS DAILY WITH FLUSH 30 mL 1 10/25/19 25 Active Dexcom G6 Transmitter deviceIndication s:Type 1 diabetes mellitus without complications CHANGE EVERY 90 DAYS 1 each 12/03/19 25 Active Dexcom G6 Transmitter deviceIndication s:Type 1 diabetes mellitus without complication Change every 90 days. 1 each 08/13/19 25 025 Discontinued Active Problems Problem Noted Date Diagnosed Date Mixed hyperlipidemia 05/23/2023 Assessment & Plan (09/07/2024 7:38 PM CDT): LDL and Tg both high, but no statin as she is of childbearing age. Needs better glycemic control. Assessment & Plan (11/28/2023 10:29 AM CDT): LDL and Tg both high, but no statin as she is of childbearing age. Needs better glycemic control. Assessment & Plan (05/23/2023 8:45 PM CDT): LDL and Tg both high, but no statin as she is of childbearing age. Needs better glycemic control. intermediate current use of insulin 04/07/2022 lead custodian associated with adverse incidents 12/28/2020 Overview (05/23/2023): [employer] system with Dexcom CGM Back Up Pump Plan Always carry infusion set Always carry syringe Replace basal with Lantus 33 units in the AM Cover meals with Novolog 1 units for every 5 grams of carbohydrate, plus correction scale of 1 unit for every 20 points > 150 mg/dl. Keep a copy of current settings and store in a safe place. The mold filling operator may need to be contacted to obtain a replacement pump. Once you resume the pump set a temp basal of 0% until you would be due for your next dose of basal insulin. Assessment & Plan (09/07/2024 7:38 PM CDT): She is adept in using and managing the insulin pump. She has a backup plan in place. Assessment & Plan (11/28/2023 10:28 AM CDT): She is adept in using and managing the insulin pump. She has a backup plan in place. Assessment & Plan (05/23/2023 8:40 PM CDT): She is adept in using and managing the insulin pump. Needed to update her backup plan based on recent experience. Assessment & Plan (04/07/2022 2:19 PM EMERGENCY MEDICAL DISPATCHER): She is adept in using and managing the insulin pump and CGM. -Insulin pump back up plan has been discussed. Assessment & Plan (01/06/2022 8:15 AM EMERGENCY MEDICAL DISPATCHER): She is adept in using and managing the insulin pump.. We also reviewed her updated () insulin pump backup plan, in detail. Assessment & Plan (07/07/2021 2:21 PM CDT): She is adept in using and managing the insulin pump.. We also reviewed her insulin pump backup plan, and detail. Assessment & Plan (12/28/2020 10:35 AM CDT): She is adept in using and managing the insulin pump. Ongoing support with her adult educator at [facility]: Christine Pineda RD/LD Has immunity to COVID-19 virus 12/28/2020 Overview (12/28/2020): Pfizer vaccine x2 April 2020 Assessment & Plan (01/03/2022 8:00 AM EMERGENCY MEDICAL DISPATCHER): Fully vaccinated, eligible for booster. Assessment & Plan (07/07/2021 2:21 PM CDT): Fully vaccinated, eligible for booster. Assessment & Plan (12/28/2020 10:36 AM CDT): Pfizer vaccine x2 April 2020 High-risk 11/29/2020 Overview (12/28/2020): boy (Winston) due 03/17/2021 Genetic screening completed with primary reading intervention teacher - LR male; CF, SMA carrier negative Assessment & Plan (12/28/2020 12:01 PM CDT): EDC 03/17/21. Also followed by her RD educator at [facility] with frequent pump/gucose reviews. History of bilateral breast reduction surgery Overview (12/25/2020): June 2018 - breast surgery can complicate , however it is not a contraindication to . consultation from a bpo specialist recommended. Obesity affecting 11/29/2020 Overview (12/25/2020): BMI 30 pre- History of bulimia nervosa 09/08/2020 Overview (12/25/2020): In college and until February 2020. She is followed by a acquisition manager. Type 1 diabetes mellitus without complication Overview (04/29/2020): New onset 04/08/2020 with DKA, nausea, vomiting, abdominal pain. Severe acidosis, HA1c 12.4%. C-peptide not obtained that admission Assessment & Plan (09/07/2024 7:39 PM CDT): Encouraged to bolus before meals. Otherwise, needs multiple pump adjustments. Needs multiple labs. Assessment & Plan (11/28/2023 10:29 AM CDT): Needs adjustments in pump settings to provide more mealtime insulins but decrease the correction dosing. Assessment & Plan (05/23/2023 8:45 PM CDT): Suboptimal control, needs update on her pump settings and also needs more pods per month so she does not routinely run out. Defer A1c until a future visit. Assessment & Plan (10/05/2022 4:14 PM CDT): -Currently using Omnipod 5 and Dexcom -A1C was 8.3 on 10/05/2022 -Dexcom download indicates relatively flat overnight glucose pattern with hyperglycemia during the day secondary to post meal excursions. Will adjust her carb ratios: Midnight: 4-->3, 1 pm: 8-->7, 5 pm: 5-->4. Will follow with her response. -Discussed diet and activity modifications. -Advised to call with any concerns/complaints regarding glucose readings -Eye exam is up to date Assessment & Plan (04/08/2022 4:46 PM EMERGENCY MEDICAL DISPATCHER): Hemoglobin A1c is 7.5%. Continue using Dexcom + Omnipod 5 insulin pump system for integrated technology. Recommend bolusing before meals. Recommend increasing insulin given with supper to help lower evening and overnight BG. Assessment & Plan (01/06/2022 8:18 AM EMERGENCY MEDICAL DISPATCHER): Glucoses somewhat variable, but improving and doing quite well with her Dexcom and CGM. We can reasonably continue current management Assessment & Plan (07/07/2021 2:21 PM CDT): Needs multiple insulin pump adjustments to provide more insulin at breakfast, less at lunch and again more at dinnertime. We again need increase her overnight basal rate, as well. With these changes, we can defer rechecking any lab work this visit. She has glucagon for emergency and communicates well with our team to make adjustments as needed Assessment & Plan (03/31/2021 3:15 PM EMERGENCY MEDICAL DISPATCHER): -Currently using Omnipod and Dexcom -She is 5 weeks post- -Dexcom download indicates some elevation of readings overnight. Will increase MN-3 am basal rate from 0.6-->0.7 units/hr. She also has significant spikes after her evening meal. Will add a 7 pm carb ratio of 8. Will follow with her response. -Discussed diet and activity modifications. -Advised to call with any concerns/complaints regarding glucose readings -Eye exam is up to date Assessment & Plan (12/28/2020 12:03 PM CDT): See T1D during section Assessment & Plan (04/28/2020 3:15 PM EMERGENCY MEDICAL DISPATCHER): Recent onset, prone to hypoglycemia. Very motivated, intelligent and will do with intensive management. With frequent hypoglycemia, she would benefit from CGM and is also an excellent candidate for insulin pump therapy. She had a number of labs at [facility], so we will request those records Type 1 diabetes mellitus during 2020 Overview (12/25/2020): Dx secondary to DKA 04/08/20 Assessment & Plan (12/28/2020 12:02 PM CDT): Current glycemic control within a good margin of safety and little mealtime fluctuations. Monitored also along with her parole or probation officer educator at [facility]. Migraine 11/02/2010 Allergic rhinitis 06/30/2009 Resolved Problems Problem Noted Date Diagnosed Date Resolved Date Abdominal pain 11/16/2010 04/28/2020 Overview (06/08/2017): Description: supraumbilical/epigastric Feces contents abnormal 11/16/2010 03/0 03/2020 Nausea with vomiting 11/16/2010 021 Overview (06/08/2017): Description: although spitting up predominates Weight decreasing 11/16/2010 04/28/2020 GE reflux 06/30/2009 04/28/2020 Encounters Date Type Department Care Team Description 10/02/2024 Telephone [facility] Medicine Scheduling [address] [place] [address] Jazzmine Burr CPhT Prior Auth 09/26/2024 Orders Only [facility] Medicine Endocrinology Metabolism and Lipid [address] [facility] Advanced [facility] [address]th [place] [address] [place] [address] Jeanie Zazueta, [place] Type 1 diabetes mellitus without complication (HCC) (Primary Dx) 09/26/2024 Telephone [facility] Medicine Endocrinology Metabolism and Lipid [address] [facility] [address] [place] [address] [place] [address] Jeanie Zazueta CPhT PA for Zepbound 09/26/2024 Orders Only [facility] Medicine Endocrinology Metabolism and Lipid [address] [facility] [address] [place] [address] [place] [address] Jeanie Zazueta, alternative financing specialist from Last 3 Months Immunizations Immunization Administration Dates Next Due DTaP 02/24/2006, 3,05/19/2001,03/08,01/04/2001 H1N1 All Forms 01/09/2009 HPV, Quadrivalent 03/17/2014,10/19/2012,05/20/19 13 Hep A, Pediatric 10/19/2012,07/25/2008 Hep B, Adolescent or Pediatric 02/18/2002,2000,2000 Hib (PRP-D) 07/19/2002, 2,03/08/2001,01/04 IPV 02/24/2006, 2,03/08/2001,01/04 Influenza LAIV (Nasal) 12/10/2013 Influenza Nasal, Unspecified 12/30/2010 Influenza, Live, Intranasal, Quadrivalent 12/10/2013 Influenza, Quadrivalent, Spl it, Intramuscular 12/29/2016 Influenza, Quadrivalent, Spl it, Preservative Free, Intramuscular 01/07/2021,11/16/2019,11/16/2019,12/22,12/18/2017 Influenza, Trivalent, IM (MDV) 12/01/2009 Influenza, Trivalent, Preser vative Free, Intramuscular 12/23/2015,12/23/2015 Influenza, Unspecified 01/05/2021,12/10/2013 MMR 02/24/2006,11/12/2001 Meningococcal MCV4P (Menactra) 02/28/2017,2014 PPD TEST, UNSPECIFIED 02/24/2006,11/12/2001 Pneumococcal Conjugate, Unspecified 10/28,11/12/2001,05/19/2001,05/19,03/08/2001,03/08/2001,01/04/2001 ,01/04/2001 Tdap 01/07/2021,05/19/2012 Varicella 07/25/2008,02/18/2002 Surgical History Surgery Date Site/Laterality Comments MYRINGOTOMY W/ TUBES Myringotomy - With Ventilating Tube Insertion - (Added by TW Conv) SECTION 02/24/2021 11# [place] [facility] Medical History Medical History Date Comments Feces contents abnormal 11/16/2010 GE reflux 06/30/2009 Abdominal pain 11/16/2010 Description: supraumbilical/epigastric Nausea with vomiting 11/16/2010 Description : although spitting up predominates Diabetic ketoacidosis associ ated with type 1 diabetes mellitus (HCC) 04/08/2020 New onset diabetes Family History Medical History Relation Name Comments Diabetes Paternal Grandfather Relation Name Status Comments Paternal Grandfather Social History Tobacco Use Types Packs/Day Years Used Date Smoking Tobacco: Never Smokeless Tobacco: Never Tobacco Cessation:Counseling Given: Not Answered Comments Unknown Sex and Gender Information Value Date Recorded Sex Assigned at Not on file Legal Sex Female 9:27 AM EMERGENCY MEDICAL DISPATCHER Gender Identity Not on file Sexual Orientation Not on file Occupation Industry Job Start Date Job End Date student Not on file Not on file Not on file Obstetrics History Last Filed Vital Signs Vital Sign Reading Time Taken Comments Blood Pressure 104/67 08/24/2023 1:52 PM CDT Pulse 91 08/24/2023 1:52 PM CDT Temperature 36.8 C (98.2 F) 08/24/2023 1:52 PM CDT Respiratory Rate - - Oxygen Saturation - - Inhaled Oxygen Concentration - - Weight 99.8 kg (220 lb) 08/24/2023 1:52 PM CDT Height 162.6 cm (5' 4) 08/24/2023 1:52 PM CDT Body Mass Index 37.76 08/24/2023 1:52 PM CDT Plan of Treatment Health Maintenance Due Date Last Done Comments Cervical Cancer Screening 2000 Depression Screening 2000 Foot Exam 2000 Hepatitis C Screening 2000 Pneumococcal vaccine <65 (1 of 1 - PPSV23, PCV20, or PCV21) 2006 11/12/2001, 11/12/2001, 05/19/2001, Additional history exists Dilated Eye Exam 2010 Regular Well Visit/Exam 18-64 2018 Hemoglobin A1C 12/21/2023 06/21/2023, 08/0 10/2022, 04/07/2022, Additional history exists Albumin Creatinine Ratio, Urine 05/16/2024 Lipid Panel 05/16/2024 05/17/2023 TSH Level 05/16/2024 05/17/2023, 09/18/2020 eGFR 05/16/2024 05/17/2023 Covid-19 Vaccine (3 - 2024-2 6 season) 2024 05/22/2020, 05/01/2020 Influenza Vaccine (#1) 2024 , 01/05/2021, 11/16/2019, Additional history exists DTaP/Tdap/Td Vaccine (8 - Td or Tdap) 01/07/2031 01/07/2021, 05/19/2012, 02/24/2006, Additional history exists Hepatitis B Screening Completed 02/18/2002 , 2000, 2000 Varicella Vaccines Completed 07/25/2008, 02/18/2002 HPV Vaccines Completed 03/17/2014, 09/28, 05/19/2012 Procedures Procedure Name Priority Date/Time Associated Diagnosis Comments POCT HEMOGLOBIN A1C Routine 06/21/2023 1 :14 PM CDT Type 1 diabetes mellitus without complication (HCC) COMPREHENSIVE METABOLIC PANEL Routine 05/17/2023 10:17 AM CDT Type 1 diabetes mellitus without complication (HCC) LIPID PANEL Routine 05/17/2023 10:17 AM CDT Type 1 diabetes mellitus without complication (HCC) ALBUMIN CREATININE RATIO, URINE Routine 05/17/2023 10:17 AM CDT Type 1 diabetes mellitus without complication (HCC) THYROID FUNCTION CASCADE Routine 05/17/2023 10:17 AM CDT Type 1 diabetes mellitus without complication (HCC) from Last 3 Months or Most Recently Relevant to Health Maintenance Results * POCT hemoglobin A1c (06/21/2023 1:14 PM CDT) Hemoglobin A1C, POC 7.9 % Blood 06/21/2023 1:14 PM CDT Ashleigh Valentin MD POINT OF CARE TEST ORDERABL ES Final Result * Thyroid Function [place] (05/17/2023 10:17 AM CDT) TSH 0.98 mIU/L [facility] Comment: Reference Range > or = 20 Years 0.40-4.50 Ranges First trimester 0.26-2.66 Second trimester 0.55-2.73 Third trimester 0.43-2.91 Blood 05/17/2023 10:1 7 AM CDT 05/17/2023 10:17 AM CDT Narrative [facility] - 05/19/2023 2:16 AM CDT CHEWING GUM FASTING:YES FASTING: YES Drea Martínez NP LAB BLOOD ORDERABLES Final Result [facility] [address] [place] [address] * Albumin Creatinine Ratio, Urine (05/17/2023 10:17 AM CDT) Creatinine, ur 78 20 - 275 mg/dL [facility] Microalbumin, ur <0.2 See Note: mg/dL [facility] Comment: Reference Range: Reference Range Not established Microalbumin/creat ratio NOTE <30 mg/g creat [facility] Comment: NOTE: The urine albumin value is less than 0.2 mg/dL therefore we are unable to calculate excretion and/or creatinine ratio. The ADA defines abnormalities in albumin excretion as follows: Albuminuria Category Result (mg/g creatinine) Normal to Mildly increased <30 Moderately increased 30-299 Severely increased > OR = 300 The ADA recommends that at least two of three specimens collected within a 3-6 month period be abnormal before considering a patient to be within a diagnostic category. Urine 05/17/2023 10:1 7 AM CDT 05/17/2023 10:17 AM CDT Narrative [facility] - 05/19/2023 2:16 AM CDT CHEWING GUM FASTING:YES FASTING: YES Drea Martínez NP LAB URINE ORDERABLES Final Result [facility] [address] [place] [address] * (ABNORMAL) Lipid panel (05/17/2023 10:17 AM CDT) Pathologist [facility] Cholesterol 202(H) <200 mg/dL [facility] HDL 64 > OR = 50 mg/dL [facility] Triglycerides 200(H) <150 mg/dL [facility] Comment: If a non-fasting specimen was collected, consider repeat triglyceride testing on a fasting specimen if clinically indicated. Graham et al. J. of Clin. Lipidol. 2015;9:129-169. LDL 106(H) mg/dL (calc) [facility] Comment: Reference range: <100 Desirable range <100 mg/dL for primary prevention; <70 mg/dL for patients with CHD or diabetic patients with > or = 2 CHD risk factors. LDL-C is now calculated using the Paresh-Day calculation, which is a validated novel method providing better accuracy than the Friedewald equation in the estimation of LDL-C. Paresh SS et al. VIV. 2013;310(19): 2158-9493 (http://education.[employer]/faq/LDG190) Chol/HDL ratio 3.2 <5.0 (calc) [facility] Non-HDL, (LDL+VLDL) 138(H) <130 mg/dL (calc) [facility] Comment: For patients with diabetes plus 1 major ASCVD risk factor, treating to a non-HDL-C goal of <100 mg/dL (LDL-C of <70 mg/dL) is considered a therapeutic option. Blood 05/17/2023 10:1 7 AM CDT 05/17/2023 10:17 AM CDT Narrative [facility] - 05/19/2023 2:16 AM CDT CHEWING GUM FASTING:YES FASTING: YES Drea Martínez NP LAB BLOOD ORDERABLES Final Result [facility] [address] [address] [facility] [place] [address] * (ABNORMAL) Comprehensive metabolic panel (05/17/2023 10:17 AM CDT) Glucose 325(H) 65 - 99 mg/dL [facility] Comment: Fasting reference interval For someone without known diabetes, a glucose value >125 mg/dL indicates that they may have diabetes and this should be confirmed with a follow-up test. BUN 13 7 - 25 mg/dL [facility] Creatinine 0.80 0.50 - 0.96 mg/dL [facility] eGFR 107 > OR = 60 mL/min/1.7 3m2 [facility] BUN/creat ratio SEE NOTE: (calc) [facility] Comment: Not Reported: BUN and Creatinine are within reference range. Sodium 132(L) 135 - 146 mmol/L [facility] Potassium, pl 4.2 3.5 - 5.3 mmol/L [facility] Chloride 98 98 - 110 mmol/L [facility] CO2 24 20 - 32 mmol/L [facility] Calcium 8.9 8.6 - 10.2 mg/dL [facility] Protein, sr 6.7 6.1 - 8.1 g/dL [facility] Albumin 4.1 3.6 - 5.1 g/dL [facility] GLOBULIN 2.6 1.9 - 3.7 g/dL (calc) [facility] Alb/glob ratio 1.6 1.0 - 2.5 (calc) [facility] Bilirubin, total 0.4 0.2 - 1.2 mg/dL [facility] Alk phos 73 31 - 125 U/L [facility] AST 13 10 - 30 U/L [facility] ALT (SGPT) 12 6 - 29 U/L [facility] Blood 05/17/2023 10:1 7 AM CDT 05/17/2023 10:17 AM CDT Narrative [facility] - 05/19/2023 2:16 AM CDT CHEWING GUM FASTING:YES FASTING: YES Drea Martínez BICYCLE SUBASSEMBLER LAB BLOOD ORDERABLES Final Result [facility] [address] [place] [id number] from Last 3 Months or Most Recently Relevant to Health Maintenance Insurance [facility] Care Teams Flow Manager Relationship Specialty Start Date End Date Yvette Munoz MD PCP - General Family Medicine 07/07/21 Ashleigh Valentin MD Referring Physician Endocrinology Diabetes & Metabolism 04/28/20 Yolanda Carpio MD Referring Physician Obstetrics and Gynecology 12/28/20
--- OUTSIDE RECORDS SUMMARY | 2024-12-13 14:24 | XMS_ITS | Encounter Summary ---
Author Organization [facility] Address [address] [place] [address] Phone Care Team Providers Care Fitness/Wellness Director Name Role Phone Unknown, Notinfile Primary Care Provider Unavail able Kwesi Kc DO Primary Care Provider Ashleigh Valentin MD Unavailable [phone] Yolanda Carpio MD Unavailable [phone] Yvette Munoz MD Primary Care Provider [phone] Drea Martínez NP Unavailable [phone] Encounter Details Date Type Department Care Team (Latest Contact Info) Description 04/08/2020 Orders Only [facility] Scanning, Provider Social History Tobacco Use Types Packs/Day Years Used Date Smoking Tobacco: Never Comments Unknown Sex and Gender Information Value Date Recorded Sex Assigned at Not on file Legal Sex Female 9:27 AM ENDOSCOPY REGISTERED NURSE Gender Identity Not on file Sexual Orientation Not on file documented as of this encounter Plan of Treatment Not on file documented as of this encounter Procedures Procedure Name Priority Date/Time Associated Diagnosis Comments SCAN - LABS 04/08/2020 documented in this encounter Results * SCAN - LABS (04/08/2020) us Provider Scanning Final Result documented in this encounter Visit Diagnoses Not on filedocumented in this encounter Care Teams Fitness/Wellness Director Relationship Specialty Start Date End Date Unknown, Notinfile PCP - General 08/16/19 04/27/20 Kwesi Kc DO [address] [place] [address] PCP - General Pediatrics 04/28/20 07/06/21 Yvette Munoz MD [address] [place] [address] PCP - General Family Medicine 07/07/21 Ashleigh Valentin MD [address] [place] [address] Referring Physician Endocrinology Diabetes & Metabolism 04/28/20 Yolanda Carpio MD [address] [place] [address] Referring Physician Obstetrics and Gynecology 12/28/20 Drea Martínez NP [address] [address] Nurse Practitioner Nurse Practitioner 01/06/22 05/22/23 documented as of this encounter
[2024-12-13 14:27] VITALS: O2SAT 100
[2024-12-13 14:32] VITALS: BP 131/66; PULSE 80; RESP 20; O2SAT 100
[2024-12-13 14:36] VITALS: BP 92/45; PULSE 98; RESP 20; O2SAT 100
[2024-12-13 14:42] LABS: Hemoglobin A1C 8.7 % (<5.7)
[2024-12-13 15:39] LABS: Beta-Hydroxybutyrate/Acetoace. 5.87 mmol/L (0.02-0.27)
[2024-12-13 16:35] LABS: Anion Gap 14 mmol/L (4-12); Blood Urea Nitrogen 11 mg/dL (7-17); Calcium 9.0 mg/dL (8.4-10.2); Carbon Dioxide 12 mmol/L (22-30); Chloride 108 mmol/L (98-107); Estimated CRCL calculation 113 ml/min; Estimated Glomerular Filt Rate > 60; Glucose 178 mg/dL (65-110); Potassium 4.7 mmol/L (3.4-5.0); Sodium 134 mmol/L (137-145)
[2024-12-13 17:10] LABS: Alanine Aminotransferase 19 U/L (6-35); Albumin Level 4.0 g/dL (3.5-5.1); Alkaline Phosphatase 64 U/L (38-126); Anion Gap 15 mmol/L (4-12); Aspartate Amino Transferase 26 U/L (14-36); Bilirubin,Total 0.5 mg/dL (0.2-1.3); Blood Urea Nitrogen 12 mg/dL (7-17); Calcium 9.1 mg/dL (8.4-10.2); Carbon Dioxide 12 mmol/L (22-30); Chloride 108 mmol/L (98-107); Estimated CRCL calculation 111 ml/min; Estimated Glomerular Filt Rate > 60; Glucose 180 mg/dL (65-110); Magnesium 1.9 mg/dL (1.6-2.3); Potassium 4.7 mmol/L (3.4-5.0); Sodium 135 mmol/L (137-145); Total Protein 6.9 g/dL (6.3-8.2)
== END 2024-12-13 18:19 | disposition home or self-care (01) ==
PROVIDERS: Emergency Provider Emergency Medicine; PCP Family Medicine
DX: E10.65 Type 1 diabetes mellitus with hyperglycemia (principal); Z79.4 Long term (current) use of insulin; Z96.41 Presence of insulin pump (external) (internal)
CPT/HCPCS: 36415; 80048; 80053; 81001; 82010; 82948; 83036; 83605; 83735; 84100; 85025; 96361; 96374; 99284; J2405; J7120